=== PATIENT | male | born 1990 | race American Indian/Alaskan Native ===

== ENCOUNTER 2021-01-08 14:38 | Emergency (ER) | payer SELFPAY ==
[2021-01-08 15:00] VITALS: BP 126/76
--- NOTE | 2021-01-08 15:01 | Event Note ---
ED Screening Note Date of service: 01/08/21 Time: 15:00 ED Screening Note: 30-year-old immunocompetent male patient presents to the emergency department with complaints of palpitations, abdominal pain, nausea, and vomiting. He states the GI symptoms began approximately 3 days ago after taking a friend's Roxicodone and smoking marijuana in an attempt to relieve dental pain. Today, he began experiencing palpitations, prompting him to come to the emergency department for evaluation. General: Awake, appropriately interactive, no acute distress. Neck: Supple. Full range of motion intact. Cardiovascular: Regular rate and rhythm. Normal peripheral perfusion. Pulmonary: Clear to auscultation. No respiratory distress. Patient is speaking normally without use of accessory muscles. Skin: No apparent rashes or lesions. Neurological: No facial asymmetry. Speech is clear. Follows commands. Patient is alert and oriented. Musculoskeletal: Moves all four extremities spontaneously with normal range of motion. Psych: Cooperative. Appropriate mood and affect. This initial assessment/diagnostic orders/clinical plan/treatment(s) is/are subject to change based on patients health status, clinical progression and re- assessment by fellow clinical providers in the ED. Further treatment and workup at subsequent clinical providers discretion. Patient/guardian urged not to elope from the ED as their condition may be serious if not clinically assessed and managed.
--- NOTE | 2021-01-08 15:30 | XRay Report ---
CHEST 2 VIEWS INDICATION / CLINICAL INFORMATION: palpitations. COMPARISON: None available. FINDINGS: SUPPORT DEVICES: None. HEART / MEDIASTINUM: No significant abnormality. LUNGS / PLEURA: No significant pulmonary or pleural abnormality. No pneumothorax. ADDITIONAL FINDINGS: No significant additional findings. IMPRESSION: 1. No acute findings. Signer Name: Ruiz Clark MD Signed: 01/08/2021 3:25 PM Workstation Name: [id number]
[2021-01-08 15:46] LABS: Bilirubin,Urine NEG (Negative); Blood,Urine SM (Negative); Color,Urine Straw (Yellow); Protein,Urine <15 mg/dL mg/dL (Negative); Urobilinogen,Urine < 2.0 mg/dL (<2.0); WBC,Urine < 1.0 /HPF (0.0-6.0)
[2021-01-08 15:46] LABS: Alanine Aminotransferase 17 units/L (7-56); Albumin 4.8 g/dL (3.9-5); BUN/Creatinine Ratio 8; Basophils % (Auto) 0.3 % (0.0-1.8); Blood Urea Nitrogen 8 mg/dL (9-20); Calcium 9.7 mg/dL (8.4-10.2); Eosinophils # (Auto) 0.1 K/mm3 (0.0-0.4); Hematocrit 42.8 % (35.5-45.6); Hemoglobin 14.1 gm/dl (11.8-15.2); Hemolysis Index 10; Lymphocytes # (Auto) 1.3 K/mm3 (1.2-5.4); Lymphocytes % (Auto) 25.7 % (13.4-35.0); Mean Corpuscular HGB Conc 33 % (32-34); Mean Corpuscular Volume 85 fl (84-94); Monocytes # (Auto) 0.4 K/mm3 (0.0-0.8); Monocytes % (Auto) 7.1 % (0.0-7.3); Platelet Count 220 K/mm3 (140-440); Red Blood Count 5.04 M/mm3 (3.65-5.03); Red Cell Distribution Width 14.3 % (13.2-15.2)
[2021-01-08 15:54] LABS: Amphetamine Screen,Urine Negative; Benzodiazepines Screen,Urine Negative; Methadone Screen,Urine Negative; Opiate Screen,Urine Negative
[2021-01-08 16:07] LABS: Cannabinoid Screen,Urine Positive; Cocaine Screen,Urine Positive
== END 2021-01-08 17:50 | disposition left against medical advice (07) ==
LOC: ED 14:38
DX: R11.10 Vomiting, unspecified (principal); Z53.21 Procedure and treatment not carried out due to patient leaving prior to being seen by health care provider
CPT/HCPCS: 36415; 71046; 80053; 80307; 81001; 83735; 85025

== ENCOUNTER 2021-01-09 00:06 | Emergency (ER) | payer SELFPAY ==
[2021-01-09 00:32] VITALS: BP 122/90
[2021-01-09] MEDS ORDERED: ONDANSETRON 4 MG ODT TAB PO ONE (00:53)
[2021-01-09] MEDS ORDERED: HYOSCYAMINE SUBL 0.125 MG TAB SL ONE (00:53)
[2021-01-09] MEDS ORDERED: FAMOTIDINE 20 MG TAB PO ONE (00:53)
[2021-01-09] MEDS ORDERED: ALUM-MAG HYDROXIDE-SIMETHICONE 200-200-20MG/5ML ORAL LIQD 30 ML PO ONE (00:53)
--- NOTE | 2021-01-09 01:10 | Emergency Department Report ---
ED General Adult HPI - General Chief complaint: Abdominal Pain Stated complaint: UNABLE TO SLEEP Time Seen by Provider: 01/09/21 00:44 Source: patient, EMS Mode of arrival: Ambulatory Limitations: No Limitations - History of Present Illness Initial comments: Patient is a 30-year-old male presents emergency room complaints of nausea vomiting that began 2 days ago. Patient states that it began after taking Roxicodone that he got from someone else for dental pain. He states he has not seen a dentist in approximately over a year. Patient states that he has left upper quadrant abdominal discomfort. He is able to tolerate p.o. intake. He denies any fever, diarrhea, chest pain, shortness of breath, hematochezia, melena, hematemesis. No past medical history. No allergies medications. No past abdominal surgical history. Patient states he is having normal bowel movements. He denies alcohol use. He endorses tobacco and marijuana use. Patient denies other drug use. Patient was evaluated in the emergency department earlier today and had a full work-up at that time, labs are unremarkable, UDS was positive for marijuana and cocaine. - Related Data Previous Rx's Medication Instructions Recorded Last Taken Type Famotidine [Pepcid] 40 mg PO QHS #10 tablet 01/09/21 Unknown Rx Ondansetron [Zofran Odt] 4 mg PO Q8HR PRN #7 tab.rapdis 01/09/21 Unknown Rx Sucralfate [Carafate] 1 gm PO ACHS 7 Days #21 tablet 01/09/21 Unknown Rx Allergies Allergy/AdvReac Type Severity Reaction Status Date / Time No Known Allergies Allergy Unverified 01/08/21 14:59 ED Review of Systems ROS: Stated complaint: UNABLE TO SLEEP Other details as noted in HPI Comment: All other systems reviewed and negative ED Past Medical Hx - Past Medical History Previous Medical History?: No - Surgical History Past Surgical History?: No - Social History Smoking Status: Current Every Day Smoker - Medications Home Medications: Home Medications Medication Instructions Recorded Confirmed Last Taken Type Famotidine [Pepcid] 40 mg PO QHS #10 tablet 01/09/21 Unknown Rx Ondansetron [Zofran Odt] 4 mg PO Q8HR PRN #7 tab.rapdis 01/09/21 Unknown Rx Sucralfate [Carafate] 1 gm PO ACHS 7 Days #21 tablet 01/09/21 Unknown Rx ED Physical Exam - General Limitations: No Limitations General appearance: alert, in no apparent distress - Head Head exam: Present: atraumatic, normocephalic - Eye Eye exam: Present: normal appearance - ENT ENT exam: Present: mucous membranes moist, other (multiple dental caries, no edema or induration of the gumline, no facial edema, uvula is midline, no uvular edema or deviation, no trismus, no tongue elevation, no muffled voice, no submandibular edema) - Respiratory Respiratory exam: Present: normal lung sounds bilaterally. Absent: respiratory distress, wheezes, rales, rhonchi, stridor, chest wall tenderness, accessory muscle use, decreased breath sounds, prolonged expiratory - Cardiovascular Cardiovascular Exam: Present: regular rate, normal rhythm, normal heart sounds. Absent: systolic murmur, diastolic murmur, rubs, gallop - GI/Abdominal GI/Abdominal exam: Present: soft, normal bowel sounds. Absent: distended, tenderness, guarding, rebound, rigid - Neurological Exam Neurological exam: Present: alert, oriented X3 - Psychiatric Psychiatric exam: Present: normal affect, normal mood - Skin Skin exam: Present: warm, dry, intact ED Course Vital Signs 01/09/21 00:27 Temperature 99.2 F Pulse Rate 80 Respiratory 20 Rate Blood Pressure 122/90 O2 Sat by Pulse 98 Oximetry ED Medical Decision Making - Medical Decision Making Patient is a 30-year-old male presents emergency room complaints of nausea vomiting that began 2 days ago. Patient states that it began after taking Roxicodone that he got from someone else for dental pain. He states he has not seen a dentist in approximately over a year. Patient states that he has left upper quadrant abdominal discomfort. He is able to tolerate p.o. intake. He denies any fever, diarrhea, chest pain, shortness of breath, hematochezia, melena, hematemesis. No past medical history. No allergies medications. No past abdominal surgical history. Patient states he is having normal bowel movements. He denies alcohol use. He endorses tobacco and marijuana use. Patient denies other drug use. Patient was evaluated in the emergency department earlier today and had a full work-up at that time, labs are unremarkable, UDS was positive for marijuana and cocaine. Vitals are normal. No abdominal tenderness on exam, no guarding, no rebound, rigidity, nor bowel sounds, no peritoneal signs. Oral examination shows multiple dental caries but no signs of dental abscess, facial cellulitis, facial abscess. Symptoms most likely consistent with gastritis, polysubstance abuse appears to be contributing factor. Patient given p.o. medications while in the emergency department he was able to tolerate p.o. intake without difficulty, symptoms improved. Patient given prescription for Zofran, Carafate, Pepcid. Advised patient to please take medication as prescribed as needed. Increase your water intake. Eat a bland liquid diet and slowly began to diet as tolerated. Please avoid drug use. Follow-up with a primary care doctor. Follow-up with a dentist. Return to emergency room for new or worsening symptoms. Critical care attestation.: If time is entered above; I have spent that time in minutes in the direct care of this critically ill patient, excluding procedure time. ED Disposition Clinical Impression: Polysubstance abuse, Dental caries Abdominal pain Qualifiers: Abdominal location: left upper quadrant Qualified Code(s): R10.12 - Left upper quadrant pain Nausea & vomiting Qualifiers: Vomiting type: unspecified Vomiting Intractability: non-intractable Qualified Code(s): R11.2 - Nausea with vomiting, unspecified Disposition: TO HOME OR SELFCARE Is pt being admited?: No Does the pt Need Aspirin: No Condition: Stable Instructions: Gastritis, Adult Additional Instructions: please take medication as prescribed as needed. Increase your water intake. Eat a bland liquid diet and slowly began to diet as tolerated. Please avoid drug use. Follow-up with a primary care doctor. Follow-up with a dentist. Return to emergency room for new or worsening symptoms. Prescriptions: Famotidine [Pepcid] 40 mg PO QHS #10 tablet Sucralfate [Carafate] 1 gm PO ACHS 7 Days #21 tablet Ondansetron [Zofran Odt] 4 mg PO Q8HR PRN #7 tab.rapdis PRN Reason: nausea vomiting Referrals: JEANCARLOS PARMAR MD [Primary Care Provider] - 2-3 Days SURESH KAY MD [Staff Physician] - 2-3 Days [facility] [Provider Group] - 2-3 Days [facility] [Outside] - 2-3 Days [facility] [Outside] - 2-3 Days Time of Disposition: 01:14 Print Language: VIETNAMESE
== END 2021-01-09 01:45 | disposition home or self-care (01) ==
LOC: ED 00:06
DX: K02.9 Dental caries, unspecified (principal); R10.12 Left upper quadrant pain; R11.2 Nausea with vomiting, unspecified; F19.10 Other psychoactive substance abuse, uncomplicated; F17.200 Nicotine dependence, unspecified, uncomplicated; Z79.899 Other long term (current) drug therapy
CPT/HCPCS: Q0162

== ENCOUNTER 2021-07-12 03:42 | Emergency (ER) | payer SELFPAY ==
[2021-07-12 03:47] VITALS: BP 120/87
--- NOTE | 2021-07-12 04:30 | Emergency Department Report ---
ED General Adult HPI - General Chief complaint: Animal Bite Stated complaint: INSECT BITE Time Seen by Provider: 07/12/21 04:13 Source: patient Mode of arrival: Ambulatory Limitations: No Limitations - History of Present Illness Initial comments: Patient 31-year-old male who presents for insect bite to posterior calf 2 days ago states itching burning mild erythema and one blister. There is been no fevers no chills no decrease in ambulation. There is no active drainage. Patient has not tried [id number]-[id number]-[id number] remedies. Patient denies other symptoms. - Related Data Previous Rx's Medication Instructions Recorded Last Taken Type Famotidine [Pepcid] 40 mg PO QHS #10 tablet 01/09/21 Unknown Rx Ondansetron [Zofran Odt] 4 mg PO Q8HR PRN #7 tab.rapdis 01/09/21 Unknown Rx Sucralfate [Carafate] 1 gm PO ACHS 7 Days #21 tablet 01/09/21 Unknown Rx Mupirocin [Bactroban 2% OINT] 1 applic TP TID 7 Days #1 tube 07/12/21 Unknown Rx Allergies Allergy/AdvReac Type Severity Reaction Status Date / Time No Known Allergies Allergy Unverified 01/08/21 14:59 ED Review of Systems ROS: Stated complaint: INSECT BITE Other details as noted in HPI Constitutional: denies: chills, fever Eyes: denies: eye pain, eye discharge, vision change ENT: denies: ear pain, throat pain Respiratory: denies: cough, shortness of breath, wheezing Cardiovascular: denies: chest pain, palpitations Endocrine: no symptoms reported Gastrointestinal: as per HPI Genitourinary: denies: urgency, dysuria Musculoskeletal: denies: back pain, joint swelling, arthralgia Skin: as per HPI, lesions (left prosterior thigh ) Neurological: denies: headache, weakness, paresthesias, vertigo Psychiatric: denies: anxiety, depression Hematological/Lymphatic: denies: easy bleeding, easy bruising ED Past Medical Hx - Past Medical History Previous Medical History?: No - Surgical History Past Surgical History?: No - Social History Smoking Status: Current Every Day Smoker - Medications Home Medications: Home Medications Medication Instructions Recorded Confirmed Last Taken Type Famotidine [Pepcid] 40 mg PO QHS #10 tablet 01/09/21 Unknown Rx Ondansetron [Zofran Odt] 4 mg PO Q8HR PRN #7 tab.rapdis 01/09/21 Unknown Rx Sucralfate [Carafate] 1 gm PO ACHS 7 Days #21 tablet 01/09/21 Unknown Rx Mupirocin [Bactroban 2% OINT] 1 applic TP TID 7 Days #1 tube 07/12/21 Unknown Rx ED Physical Exam - General Limitations: No Limitations General appearance: alert, in no apparent distress - Head Head exam: Present: atraumatic, normocephalic - Eye Eye exam: Present: normal appearance, PERRL, EOMI Pupils: Present: normal accommodation - ENT ENT exam: Present: mucous membranes moist, TM's normal bilaterally - Neck Neck exam: Present: normal inspection, full ROM. Absent: tenderness - Respiratory Respiratory exam: Present: normal lung sounds bilaterally. Absent: respiratory distress, wheezes, stridor, chest wall tenderness - Cardiovascular Cardiovascular Exam: Present: regular rate, normal rhythm, normal heart sounds. Absent: systolic murmur, diastolic murmur, rubs, gallop - GI/Abdominal GI/Abdominal exam: Present: soft, normal bowel sounds. Absent: distended, tenderness - Rectal Rectal exam: Present: deferred - exam: Present: normal inspection - Extremities Exam Extremities exam: Present: normal inspection, full ROM, normal capillary refill. Absent: calf tenderness - Expanded Lower Extremity Exam Left Lower Leg exam: Present: full ROM, erythema. Absent: tenderness, swelling, abrasion, ecchymosis, deformity, palpable cord Ankle exam: Present: full ROM Foot/Toe exam: Present: normal inspection, full ROM. Absent: tenderness Neuro vascular tendon exam: Absent: pulse deficit, motor deficit, sensory deficit, tendon deficit Gait: Positive: observed and normal - Back Exam Back exam: Present: normal inspection, full ROM. Absent: CVA tenderness (R), CVA tenderness (L) - Neurological Exam Neurological exam: Present: alert, oriented X3, CN II-XII intact, normal gait - Psychiatric Psychiatric exam: Present: normal affect, normal mood - Skin Skin exam: Present: warm, dry, normal color, erythema (left posterior thigh ), vesicles. Absent: rash ED Course Vital Signs 07/12/21 03:45 Temperature 98.7 F Pulse Rate 79 Respiratory 18 Rate Blood Pressure 120/87 O2 Sat by Pulse 100 Oximetry ED Medical Decision Making - Medical Decision Making This is topical cellulitis plan mupirocin ointment, take [id number]-[id number]-[id number] Benadryl and Tylenol as needed for pain and itching. Follow-up with primary care doctor in 2 to 3 days. Patient verbalized agreement and understanding with discharge plan. Patient DC'd home in stable condition at this time. Critical care attestation.: If time is entered above; I have spent that time in minutes in the direct care of this critically ill patient, excluding procedure time. ED Disposition Clinical Impression: Cellulitis of left lower leg Disposition: HOME / SELF CARE / HOMELESS Is pt being admited?: No Does the pt Need Aspirin: No Condition: Stable Instructions: Cellulitis, Adult Additional Instructions: Take medications as prescribed, return to emergency department should symptoms worsen. Prescriptions: Mupirocin [Bactroban 2% OINT] 1 applic TP TID 7 Days #1 tube Referrals: [facility] [Provider Group] - 3-5 Days Forms: Work/School Release Form(ED) Time of Disposition: 04:33
== END 2021-07-12 05:00 | disposition home or self-care (01) ==
LOC: ED 03:42
DX: L03.116 Cellulitis of left lower limb (principal); F17.200 Nicotine dependence, unspecified, uncomplicated; Z79.899 Other long term (current) drug therapy
CPT/HCPCS: 99282

== ENCOUNTER 2022-04-28 17:18 | Inpatient (IN) | payer SELFPAY ==
[2022-04-28] MEDS ORDERED: IPRATROPIUM/ALBUTEROL SULFATE 3 ML AMPUL.NEB IH ONE ×2 (19:46→19:52)
[2022-04-28] MEDS ORDERED: methylPREDNISolone Sod Succinate 125 MG/2 ML INJ ONE (19:47)
[2022-04-28] MEDS ORDERED: methylPREDNISolone Sod Succinate 125 MG/2 ML INJ IV ONE (19:52)
[2022-04-28] MEDS ORDERED: MORPHINE 4 MG/1 ML INJ IV ONE (19:56)
[2022-04-28] MEDS ORDERED: ONDANSETRON 4 MG/2 ML INJ IV ONE (19:57)
--- NOTE | 2022-04-28 20:16 | XRay Report ---
CHEST 1 VIEW 04/28/2022 7:56 PM INDICATION / CLINICAL INFORMATION: Shortness of breath. COMPARISON: 01/08/21. FINDINGS: SUPPORT DEVICES: None. HEART / MEDIASTINUM: The heart size and pulmonary vasculature are normal. LUNGS / PLEURA: No significant pulmonary or pleural abnormality. No pneumothorax. ADDITIONAL FINDINGS: No significant additional findings. IMPRESSION: No acute abnormality or significant change. Signer Name: Jose G Soria MD Signed: 04/28/2022 8:12 PM Workstation Name: [id number]
[2022-04-28 20:38] LABS: ABG Base Excess -2.5 mmol/L (-2.0-3.0); ABG HCO3 23.3 mmol/L (20.0-26.0); ABG PCO2 43.9 mm Hg; ABG PH 7.343 pH Units (7.350-7.450); ABG PO2 110.7 mm Hg (80.0-90.0)
[2022-04-28 20:40] LABS: ABG Methemoglobin 0.6 % (0.0-1.5)
--- NOTE | 2022-04-28 20:45 | Emergency Department Report ---
HPI - General Chief Complaint: Dyspnea/Respdistress PUI?: No Time Seen by Provider: 04/28/22 19:51 - HPI HPI: 31-year old male who presents for evaluation of difficulty breathing or shortness of breath. Patient reports he has had a persistent dry cough over the past 2 days. He states his daughter has been sick. He reports he performed an at home COVID test which was negative. He states using [id number] medication without any improvement. He reports having substernal chest pain as well. He states he telephone ED Past Medical Hx - Past Medical History Previous Medical History?: No Hx Hypertension: No Hx Asthma: No Hx COPD: No - Surgical History Past Surgical History?: No - Family History Family history: no significant - Social History Smoking Status: Heavy Tobacco Smoker (Patient states he smokes 1 pack of cigarettes a day) - Medications Home Medications: Home Medications Medication Instructions Recorded Confirmed Last Taken Type Famotidine [Pepcid] 40 mg PO QHS #10 tablet 01/09/21 Unknown Rx Ondansetron [Zofran Odt] 4 mg PO Q8HR PRN #7 tab.rapdis 01/09/21 Unknown Rx Sucralfate [Carafate] 1 gm PO ACHS 7 Days #21 tablet 01/09/21 Unknown Rx Mupirocin [Bactroban 2% OINT] 1 applic TP TID 7 Days #1 tube 07/12/21 Unknown Rx ED Review of Systems ROS: Stated complaint: ULYSSES Other details as noted in HPI Comment: All other systems reviewed and negative Constitutional: no symptoms reported Eyes: denies: as per HPI, eye pain Respiratory: cough, shortness of breath. denies: SOB with exertion, SOB at rest, wheezing, other Cardiovascular: chest pain Endocrine: denies: see HPI, excessive sweating, flushing, intolerance to cold, intolerance to heat, increased hunger, increased thirst, increased urine, unexplained weight gain, unexplained weight loss Gastrointestinal: abdominal pain. denies: nausea, vomiting, diarrhea, constipation, hematemesis, melena, other Genitourinary: denies: urgency, dysuria, hematuria, discharge, testicular pain, testicular mass Skin: denies: rash, lesions, change in color, change in hair/nails, pruritus Neurological: denies: headache, numbness, paresthesias, confusion, abnormal gait, vertigo, other Psychiatric: denies: as per HPI, anxiety, depression, auditory hallucinations, visual hallucinations, homicidal thoughts Hematological/Lymphatic: denies: easy bleeding Physical Exam - Physical Exam Vital Signs: Vital Signs 04/28/22 04/28/22 04/28/22 17:34 19:59 20:10 Temperature 99.0 F 98.8 F Pulse Rate 114 H 109 H 104 H Pulse Rate [ Bilateral Throughout] Respiratory 16 24 Rate Respiratory Rate [Bilateral Throughout] Respiratory Rate [Posterior Bilateral Throughout] Blood Pressure Blood Pressure 140/100 132/102 [Left] O2 Sat by Pulse 99 98 Oximetry 04/28/22 04/28/22 04/28/22 20:11 20:22 20:32 Temperature Pulse Rate 112 H 108 H Pulse Rate [ Bilateral Throughout] Respiratory 24 20 37 H Rate Respiratory Rate [Bilateral Throughout] Respiratory Rate [Posterior Bilateral Throughout] Blood Pressure 128/98 Blood Pressure 142/85 [Left] O2 Sat by Pulse 100 100 100 Oximetry 04/28/22 20:35 Temperature Pulse Rate Pulse Rate [ 108 H Bilateral Throughout] Respiratory Rate Respiratory 32 H Rate [Bilateral Throughout] Respiratory 32 H Rate [Posterior Bilateral Throughout] Blood Pressure Blood Pressure [Left] O2 Sat by Pulse Oximetry General: Gen: adult male, diaphoretic, severely dyspneic, sitting in tripod position, severe respiratory distress, eyes intermittently rolling back in his head, HEENT: Normocephalic atraumatic pupils equally round and reactive to light extraocular muscles intact sclera anicteric Neck: Full range of motion, no midline spinal tenderness palpation, no JVD, no c arotid bruits, no nuchal rigidity; +accessory muscle usage CVS: S1-S2 regular rate and rhythm with no gallops rubs or murmurs, chest wall nontender Pulmonary:coarse breath sounds Abdomen: Soft nondistended nontender no guarding or rebound tenderness, no palpable deformities or step-offs, normal active bowel sounds, no hepatosplenomegaly, no pulsatile masses : Deferred Extremities: No cyanosis no clubbing no edema, intact distal peripheral pulses, Integumentary: Skin normal, no petechia no purpura no abscess no lacerations no evidence of trauma no evidence of infection Neuro: Patient is awake alert and oriented to person place time situation, mentating well, cranial nerves II through XII intact, no focal neurodeficits, sensation grossly tact Psych: Calm cooperative, mood affect normal ED Course Vital Signs 04/28/22 04/28/22 04/28/22 17:34 19:59 20:10 Temperature 99.0 F 98.8 F Pulse Rate 114 H 109 H 104 H Pulse Rate [ Bilateral Throughout] Respiratory 16 24 Rate Respiratory Rate [Bilateral Throughout] Respiratory Rate [Posterior Bilateral Throughout] Blood Pressure Blood Pressure 140/100 132/102 [Left] O2 Sat by Pulse 99 98 Oximetry 04/28/22 04/28/22 04/28/22 20:11 20:22 20:32 Temperature Pulse Rate 112 H 108 H Pulse Rate [ Bilateral Throughout] Respiratory 24 20 37 H Rate Respiratory Rate [Bilateral Throughout] Respiratory Rate [Posterior Bilateral Throughout] Blood Pressure 128/98 Blood Pressure 142/85 [Left] O2 Sat by Pulse 100 100 100 Oximetry 04/28/22 20:35 Temperature Pulse Rate Pulse Rate [ 108 H Bilateral Throughout] Respiratory Rate Respiratory 32 H Rate [Bilateral Throughout] Respiratory 32 H Rate [Posterior Bilateral Throughout] Blood Pressure Blood Pressure [Left] O2 Sat by Pulse Oximetry - Reevaluation(s) Reevaluation #1: 04/28/22 21:14 Patient currently on BiPAP. His breathing is still mildly labored but it is significantly improved. Patient no longer diaphoretic. He is able to speak in full sentences. We will continue to monitor and await resulting of patient's lab results. 04/28/22 22:00: pt remains dyspneic; he continues to remove bipap; RR currenty 41breaths/min. Pt remains in severe respiratory distress - Intubation Time Out Performed: Yes Sedative: Etomidate Mg Given: 20 Mg Given: 100 Laryngoscope: Kristy Size: 3 Assist Device Used: other (none) ET Tube Size: 7.5 Other Airway Intervention: none Tube Secured Depth (cm): 22 Tube Secured Location: lips Tube Placement Confirmation: visualized tube passing t, equal breath sounds bilat, no breath sounds over epi, confirmation by capnometr Patient Tolerated Procedure: well Intubation Complications: none ED Medical Decision Making - Lab Data Result diagrams: 04/28/22 20:37 04/28/22 20:37 - EKG Data -: EKG Interpreted by Me EKG shows normal: sinus rhythm Rate: normal - EKG Data When compared to previous EKG there are: no significant change, changes noted, previous EKG unavailable - Radiology Data Radiology results: report reviewed - Medical Decision Making 31-year-old male presents with severe respiratory distress. Labs reviewed. Patient persistently dyspneic and tachypneic although oxygen saturations have remained normal despite him having been given Solu-Medrol and albuterol Atrovent nebulizer treatments serum labs reviewed. Chest x-ray unremarkable. Due to persistent progressively worsening respiratory distress and my concerns that the patient would succumb to respiratory arrest, the patient was emergently intubated via endotracheal intubation. Urine drug screen positive for amphetamines and marijuana. Urine drug screen was also positive for morphine but the patient had received this in the emergency department today for m anagement of his chest pain. The patient was placed on a propofol drip for sedation. Case reviewed with admitting hospitalist, . He accepted the patient for admission to the hospital service for further management. Critical Care Time: Yes Critical care time in (mins) excluding proc time.: 30 Critical care attestation.: If time is entered above; I have spent that time in minutes in the direct care of this critically ill patient, excluding procedure time. ED Disposition Clinical Impression: Cough, Amphetamine abuse, Respiratory distress, acute Disposition: 09 ADMITTED INPATIENT Is pt being admited?: Yes Does the pt Need Aspirin: No Condition: Stable
[2022-04-28 21:20] LABS: Basophils % (Auto) 0.3 % (0.0-1.8); Eosinophils # (Auto) 0.1 K/mm3 (0.0-0.4); Eosinophils % (Auto) 0.7 % (0.0-4.3); Hematocrit 43.7 % (35.5-45.6); Hemoglobin 14.1 gm/dl (11.8-15.2); Lymphocytes # (Auto) 1.6 K/mm3 (1.2-5.4); Lymphocytes % (Auto) 20.6 % (13.4-35.0); Mean Corpuscular HGB Conc 32 % (32-34); Mean Corpuscular Volume 84 fl (84-94); Monocytes # (Auto) 0.4 K/mm3 (0.0-0.8); Monocytes % (Auto) 4.7 % (0.0-7.3); Platelet Count 230 K/mm3 (140-440); Red Blood Count 5.18 M/mm3 (3.65-5.03); Red Cell Distribution Width 14.2 % (13.2-15.2)
[2022-04-28] MEDS ORDERED: SODIUM CHLORIDE 0.9% 1000 ML 1,000 ML IV ONE (21:33)
[2022-04-28] MEDS ORDERED: LORazepam 2 MG/ML VIAL IV ONE (21:40)
[2022-04-28 22:21] LABS: Alanine Aminotransferase 20 units/L (7-56); Albumin 4.5 g/dL (3.9-5); BUN/Creatinine Ratio 6; Blood Urea Nitrogen 5 mg/dL (9-20); Calcium 9.3 mg/dL (8.4-10.2); Hemolysis Index 88
[2022-04-28] MEDS ORDERED: ROCURONIUM 50 MG/5 ML INJ IV ONE (22:33)
[2022-04-28] MEDS ORDERED: ETOMIDATE 20 MG/10 ML INJ IV ONE (22:33)
[2022-04-28 22:54] LABS: Amphetamine Screen,Urine PRESUMPTIVE POSITIVE; Benzodiazepines Screen,Urine PRESUMPTIVE NEGATIVE; Cannabinoid Screen,Urine PRESUMPTIVE POSITIVE; Cocaine Screen,Urine PRESUMPTIVE NEGATIVE; Methadone Screen,Urine PRESUMPTIVE NEGATIVE; Opiate Screen,Urine PRESUMPTIVE POSITIVE
[2022-04-28] MEDS ORDERED: propofoL 200 MG/20 ML VIAL IV ONE (23:00)
--- NOTE | 2022-04-28 23:30 | XRay Report ---
CHEST 1 VIEW INDICATION / CLINICAL INFORMATION: ett placement. COMPARISON: Chest x-ray 04/28/2022 FINDINGS: SUPPORT DEVICES: Endotracheal tube lies in satisfactory position. HEART / MEDIASTINUM: Heart size is within normal limits. Mediastinal contour demonstrates no signific ant abnormality. LUNGS / PLEURA: No significant pulmonary abnormality. BONES: No significant osseous abnormality. ADDITIONAL FINDINGS: No significant additional findings. IMPRESSION: 1. No active cardiopulmonary disease. Signer Name: Moy Santos II, MD Signed: 04/28/2022 11:25 PM Workstation Name: [id number]
--- NOTE | 2022-04-28 23:52 | XRay Report ---
CHEST 1 VIEW INDICATION / CLINICAL INFORMATION: og tube placement. COMPARISON: Chest x-ray 04/28/2022; 2259 hours FINDINGS: SUPPORT DEVICES: Interval additional esophagogastric tube tip beneath left hemidiaphragm within the p roximal findings. Endotracheal tube stable. HEART / MEDIASTINUM: Heart size is within normal limits. Mediastinal contour demonstrates no signific ant abnormality. LUNGS / PLEURA: No significant pulmonary abnormality. BONES: No significant osseous abnormality. ADDITIONAL FINDINGS: No significant additional findings. IMPRESSION: 1. No active cardiopulmonary disease. 2. Interval placement of esophagogastric tube tip beneath the left hemidiaphragm. Signer Name: Moy Santos II, MD Signed: 04/28/2022 11:47 PM Workstation Name: [id number]
--- NOTE | 2022-04-29 00:24 | Cat Scan Report ---
CTA CHEST WITH CONTRAST INDICATION / CLINICAL INFORMATION: severe sob, chest pain. TECHNIQUE: Axial CT images were obtained through the chest after injection of 100 cc Omnipaque 350 Sh eehy IV contrast. 3 plane MIP and/or 3D reconstructions were produced. All CT scans at this location are performed using CT dose reduction for ALARA by means of automated exposure control. COMPARISON: None available. FINDINGS: VASCULAR FINDINGS: PULMONARY ARTERY: Pulmonary artery is normal in size. No filling defects are present compatible with pulmonary artery embolus.. THORACIC AORTA: No significant abnormality. CORONARY ARTERY CALCIFICATION: Absent -- None. NONVASCULAR FINDINGS: LOWER NECK: Soft tissues and musculature of the lower neck demonstrate no significant abnormality. Th e thyroid demonstrates no significant abnormality. HEART: No significant abnormality. MEDIASTINUM / JOANIE: No significant abnormality. ESOPHAGUS: Esophagogastric tube present. The esophagus demonstrates no significant abnormality. LYMPH NODES: Enlarged bilateral axillary lymph nodes. Left axillary lymph nodes measure up to 12 mm s hort axis. Right measure up to 9-10 mm short axis LUNGS: No acute air space or interstitial disease. PLEURA: No pleural effusion. No pneumothorax. THORACIC SOFT TISSUES: No significant abnormality of the chest wall or upper thoracic musculature. BONES: No significant skeletal abnormalities. ADDITIONAL CHEST FINDINGS: None. UPPER ABDOMEN: Mild hepatic steatosis not excluded. IMPRESSION: 1. No CT evidence for pulmonary embolism. 2. Borderline to minimally enlarged bilateral axillary lymph nodes of uncertain if any clinical signi ficance. 3. No acute findings within the chest. Signer Name: Moy Santos II, MD Signed: 04/29/2022 12:19 AM Workstation Name: [email or web address] [id number]
[2022-04-29] MEDS ORDERED: MORPHINE 2 MG/1 ML INJ IV PRN (00:26)
[2022-04-29] MEDS ORDERED: MORPHINE 4 MG/1 ML INJ IV PRN (00:26)
[2022-04-29] MEDS ORDERED: ACETAMINOPHEN 650 MG RECT SUPP PR PRN (00:26)
[2022-04-29] MEDS ORDERED: ONDANSETRON 4 MG/2 ML INJ IV PRN (00:26)
[2022-04-29] MEDS ORDERED: SODIUM CHLORIDE 0.9% 1000 ML 1,000 ML IV SCH (00:30)
--- NOTE | 2022-04-29 00:35 | History and Physical Report ---
History of Present Illness Date of examination: 04/29/22 Date of admission: 04/29/2022 Chief complaint: Shortness of breath Cough History of present illness: 31-year-old -[place] male with no significant past medical history seen in the emergency room today with complaints of shortness of breath and cough which has been ongoing for the past 2 days. Most of the history was gotten from the ER staff as patient is already intubated and sedated. No family member was available. According to patient, he denied any fever or chills, he has had some chest disc omfort with his cough. He also indicated that indeed a COVID test at home which was negative. While in the emergency room, patient was found to be in acute respiratory distress. He was found to be wheezing, tachypneic and tachycardic. He was subsequently intubated in the emergency room. Work-up in the emergency room today, labs were unremarkable. Chest x-ray was unremarkable. CT angiogram of the chest was negative for pulmonary embolism. No acute findings within the chest. UDS was positive for marijuana and amphetamine. He was subsequently intubated in the emergency room secondary to his acute respiratory distress. Past History Past Medical History: No medical history Past Surgical History: No surgical history Social history: smoking (Current daily smoker) Family history: no significant family history Medications and Allergies Allergies Allergy/AdvReac Type Severity Reaction Status Date / Time No Known Allergies Allergy Verified 04/28/22 17:41 Home Medications Medication Instructions Recorded Confirmed Last Taken Type Famotidine [Pepcid] 40 mg PO QHS #10 tablet 01/09/21 Unknown Rx Ondansetron [Zofran Odt] 4 mg PO Q8HR PRN #7 tab.rapdis 01/09/21 Unknown Rx Sucralfate [Carafate] 1 gm PO ACHS 7 Days #21 tablet 01/09/21 Unknown Rx Mupirocin [Bactroban 2% OINT] 1 applic TP TID 7 Days #1 tube 07/12/21 Unknown Rx Active Meds: Active Medications Acetaminophen (Acetaminophen 650 Mg Rect Supp) 650 mg CO Q6H PRN PRN Reason: Pain MILD(1-3)/Fever >100.5/RSUHING Albuterol/Ipratropium (Ipratropium/Albuterol Sulfate 3 Ml Ampul.Neb) 1 ampul IH Q6HRT ARTURO Propofol (Diprivan 10 Mg/Ml) 1,000 mg in 100 mls @ 2.381 mls/hr IV TITR ARTURO; Protocol Last Admin: 04/28/22 23:10 Dose: 10 mcg/kg/min, 4.763 mls/hr Sodium Chloride (Nacl 0.9% 1000 Ml) 1,000 mls @ 75 mls/hr IV DIRECT ARTURO Morphine Sulfate (Morphine 2 Mg/1 Ml Inj) 2 mg IV Q4H PRN PRN Reason: Pain, Moderate (4-6) Sodium Chloride (Sodium Chloride 0.9% 10 Ml Flush Syringe) 10 ml IV BID ARTURO Sodium Chloride (Sodium Chloride 0.9% 10 Ml Flush Syringe) 10 ml IV PRN PRN PRN Reason: LINE FLUSH Review of Systems ROS unobtainable: due to endotracheal tube Exam - Constitutional Vitals: Temp Pulse Resp BP Pulse Ox 98.8 F 120 H 20 140/101 100 04/28/22 19:59 04/29/22 00:26 04/29/22 00:26 04/29/22 00:26 04/29/22 00:26 General appearance: Present: well-nourished, other (Intubated and sedated) - EENT Eyes: Present: PERRL, EOM intact. Absent: scleral icterus ENT: hearing intact, clear oral mucosa, dentition normal - Neck Neck: Present: supple, normal ROM - Respiratory Respiratory effort: other (Intubated and sedated) Respiratory: bilateral: wheezing (Few scattered wheezes bilaterally) - Cardiovascular Rhythm: regular Heart Sounds: Present: S1 & S2. Absent: gallop, systolic murmur, diastolic murmur, rub, click - Extremities Extremities: no ischemia, pulses intact, pulses symmetrical, No edema, normal temperature, normal color, Full ROM Peripheral Pulses: within normal limits - Abdominal General gastrointestinal: Present: soft, non-tender, non-distended, normal bowel sounds. Absent: mass - Integumentary Integumentary: Present: clear, warm, dry, rash, normal turgor - Musculoskeletal Musculoskeletal: strength equal bilaterally - Psychiatric Psychiatric: appropriate mood/affect, intact judgment & insight, memory intact, cooperative - Neurologic Neurologic: CNII-XII intact, no focal deficits, moves all extremities HEART Score - HEART Score Troponin: Troponin T < 0.010 ng/mL (0.00-0.029) 04/28/22 20:37 Results - Labs CBC & Chem 7: 04/28/22 20:37 04/28/22 20:37 Labs: Abnormal lab results 04/28/22 04/28/22 04/28/22 Range/Units 20: 20:37 20:37 RBC 5.18 H (3.65-5.03) M/mm3 MCH 27 L (28-32) pg Seg Neutrophils % 73.7 H (40.0-70.0) % ABG pH 7.343 L (7.350-7.450) pH Units ABG pO2 110.7 H (80.0-90.0) mm Hg ABG Base Excess -2.5 L (-2.0-3.0) mmol/L ABG Hemoglobin 13.4 L (14.0-18.0) gm/dl BUN 5 L (9-20) mg/dL Glucose 109 H (75-100) mg/dL Total Protein 8.8 H (6.3-8.2) g/dL Assessment and Plan Assessment: 1. Acute respiratory distress-etiology unclear. Possibly secondary to bronchospasm. 2. Amphetamine abuse 3. Tobacco abuse Plan: 1. Patient intubated and admitted into the intensive care unit. 2. Commenced on nebulizing treatments and IV steroid. 3. Consult excavation laborer for evaluation and further recommendation. DVT prophylaxis: Subcutaneous heparin CODE STATUS: Full code
[2022-04-29 00:40] LABS: ABG HCO3 25.2 mmol/L (20.0-26.0); ABG PCO2 63.9 mm Hg; ABG PH 7.213 pH Units (7.350-7.450); ABG PO2 75.5 mm Hg (80.0-90.0)
[2022-04-29 00:48] LABS: ABG Methemoglobin 0.6 % (0.0-1.5); ABG Oxygen Saturation 94.1 % (95.0-99.0)
[2022-04-29] MEDS ORDERED: fentaNYL 100 MCG/2 ML INJ IV PRN (00:53)
[2022-04-29] MEDS: fentaNYL DRIP Premix 2,000 MCG/100 ML BAG IV SCH ×3 (01:02→22:31)
[2022-04-29] MEDS ORDERED: ROCURONIUM 50 MG/5 ML INJ IV ONE ×2 (04:03→11:00)
[2022-04-29] MEDS ORDERED: MIDAZOLAM 2 MG/2 ML INJ ONE (04:15)
[2022-04-29] MEDS: IPRATROPIUM/ALBUTEROL SULFATE 3 ML AMPUL.NEB IH SCH ×4 (04:42→20:52)
--- NOTE | 2022-04-29 04:43 | Event Note ---
Date: 04/29/22 I was called into this patient room for re--intubation. Pt was initially admitted to the ICU for respiratory failure and intubated. While still waiting in the ED for his bed it was noticed that patient have beaten his ET tube and needed to be changed. Please see intubation procedure note below Procedure: ET intubation Time out:Yes with name of patient confirmed Sedation:Etomidate Paralytic:Rocuronium Tube size: 7.5 Assisted Device:Anjel size 4 curved Tube location depth:22 cm Tube placement confirmation:visualized tube passing through cords,no breath sounds over epigastrum, confirmed by capnometry with equal breath bilaterally Patient Tolerated Procedure:Well Intubation Complication:None Additional Comments:
[2022-04-29 09:01] LABS: ABG Base Excess -1.2 mmol/L (-2.0-3.0); ABG HCO3 28.1 mmol/L (20.0-26.0); ABG Methemoglobin 0.7 % (0.0-1.5); ABG Oxygen Saturation 99.6 % (95.0-99.0); ABG PCO2 68.9 mm Hg; ABG PH 7.229 pH Units (7.350-7.450)
[2022-04-29 09:06] LABS: ABG PO2 435.3 mm Hg (80.0-90.0)
[2022-04-29] MEDS: FAMOTIDINE 20 MG TAB FEEDTUBE SCH ×2 (10:16→22:33)
[2022-04-29 10:32] LABS: C-Reactive Protein 1.5 mg/dL (0.00-1.30)
[2022-04-29] MEDS: HEPARIN 5,000 UNIT/1 ML VIAL SUB-Q SCH ×3 (10:36→22:32)
[2022-04-29] MEDS: methylPREDNISolone Sod Succinate 40 MG/1 ML INJ IV SCH ×3 (10:36→22:32)
--- NOTE | 2022-04-29 10:40 | Progress Note ---
<JARAD FLOYD - Last Filed: 04/29/22 17:46> Assessment and Plan Assessment and plan: This is a 31-year-old AA male with no known past medical history admitted for acute hypoxemic respiratory failure requiring ventilatory support Hospital Course to Date: 04/29: Intubated/sedated. s/p reintubation, patient bit through ETT. Max on propofol and fentanyl, now with hypotension and tachycardia. Rapid COVID negative. Patient is afebrile with no leukocytosis. Wean sedatio for RASS goal 0 to -1, IVF bolus administered. Probably related to sedation but given unclear etiology for acute respiratory failure and now with hypotension, will also r/o infectious process. Orders placed for COVID and FLU PCR, UA, blood culture, and procal. Hold off on IV Abx for now, pending results. 2D echo pending. [facility] is also following Assessment and Plan #Acute Hypoxemic Respiratory Failure - etiology unclear - Presented in respiratory distress, SOB, and cough ongoing X2 days - respiratory status worsen in the ED s/p intubation on 04/29 - Rapid Covid negative, CXR and CAT chest with no acute findings - Probable bronchospasm, wheezing appreciated throughout lungs - Vent setting: PRVC- 100%,6,24,450 - AM ABG noted, vent wean per CCM - CCM consulted, appreciate recommendations - Continue IV Steroids and Nebs - COVID and FLU PCR pending - VAP bundle addressed - Aspiration precaution HOB above 30 - Daily SBT and SAT trials as tolerated - Daily ABG and CXR - Continue SPO2 monitoring for SPO2 goal above 92% #Hypotension - Now with hypotension and tachycardia. Afebrile with no leukocytosis - probably secondary to sedation, however will r/o infectious process - IVF bolus administered - Orders placed for COVID and FLU PCR, UA, blood culture, and procal. - Hold off on IV Abx for now, pending results - Levophed gtt on standby - Continue blood pressure monitor per protocol - Maintain MAP above 65 - Continue rehydration with cont. IVF - 2D Echo pending - CCM consulted, appreciate recommendations #Polysubstance Abuse - UDS + opiate, amphetamine, and THC - Currently intubated and sedated - Titrate sedation for RASS goal of 0 to -1 - Daily SAT and SBT per CCM - Avoid benzodiazepine to reduce the possibility of delirium - PRN Analgesia CPOT greater than 2 - Maintenance of sleep-wake cycle #Tobacco Dependence - Smoking cessation education once extubated and off sedation - Nicotine patch if needed once extubated and off sedation #GI/DVT Prophylaxis - PPI- Pepcid - Heparin SubQ - SCDs to bilateral lower extremities while in bed #Advance Care Planning - Disease education data, care plan, diagnoses, and prognosis were discussed w ith patient's mother at the bedside. Patient is a FULL code. Patient's family acknowledged understanding and agreed with current care plan. The high probability of a clinically significant, sudden or life threatening deterioration of the [multiple] system(s) required my full and direct attention, intervention and personal management. The aggregate critical care time was [60] minutes. This time is in addition to time spent performing reported procedures but includes the following: [x] Data Review and interpretation [x] Patient assessment and monitoring of vital signs [x] Documentation [x] Medication orders and management Disposition Plan: ICU Total Time Spent with Patient (Minutes): 60 History Interval history: Patient seen and examined at the bedside. S/p re-intubated this am, per RN patient bit through ETT. Currently Intubated and sedate, RASS -5. Hypotensive and Tachycardiac this am, IVF bolus initiated Hospitalist Physical - Constitutional Vitals: Temp Pulse Resp BP Pulse Ox 98.8 F 105 H 13 99/56 100 04/28/22 19:59 04/29/22 08:00 04/29/22 08:00 04/29/22 08:00 04/29/22 08:15 General appearance: Present: no acute distress, other (Intubated and sedated) - EENT Eyes: Present: miosis - Respiratory Respiratory effort: normal Respiratory: bilateral: wheezing - Cardiovascular Rhythm: regular Heart Sounds: Present: S1 & S2 - Extremities Extremities: no ischemia, pulses intact, pulses symmetrical Peripheral Pulses: within normal limits - Abdominal General gastrointestinal: soft, non-distended, normal bowel sounds - Integumentary Integumentary: Present: warm, dry - Psychiatric Psychiatric: other (Intubated and Sedated, RASS -5) - Neurologic Neurologic: other (Intubated and Sedated, RASS -5) - Allied Health Allied health notes reviewed: nursing, case management HEART Score - HEART Score Troponin: Troponin T < 0.010 ng/mL (0.00-0.029) 04/28/22 20:37 Results - Labs CBC & Chem 7: 04/28/22 20:37 04/28/22 20:37 Labs: Laboratory Last Values WBC 7.6 K/mm3 (4.5-11.0) 04/28/22 20:37 RBC 5.18 M/mm3 (3.65-5.03) H 04/28/22 20:37 Hgb 14.1 gm/dl (11.8-15.2) 04/28/22 20:37 Hct 43.7 % (35.5-45.6) 04/28/22 20:37 MCV 84 fl (84-94) 04/28/22 20:37 MCH 27 pg (28-32) L 04/28/22 20:37 MCHC 32 % (32-34) 04/28/22 20:37 RDW 14.2 % (13.2-15.2) 04/28/22 20:37 Plt Count 230 K/mm3 (140-440) 04/28/22 20:37 Lymph % (Auto) 20.6 % (13.4-35.0) 04/28/22 20:37 Blair % (Auto) 4.7 % (0.0-7.3) 04/28/22 20:37 Eos % (Auto) 0.7 % (0.0-4.3) 04/28/22 20:37 Baso % (Auto) 0.3 % (0.0-1.8) 04/28/22 20:37 Lymph # (Auto) 1.6 K/mm3 (1.2-5.4) 04/28/22 20:37 Blair # (Auto) 0.4 K/mm3 (0.0-0.8) 04/28/22 20:37 Eos # (Auto) 0.1 K/mm3 (0.0-0.4) 04/28/22 20:37 Baso # (Auto) 0.0 K/mm3 (0.0-0.1) 04/28/22 20:37 Seg Neutrophils % 73.7 % (40.0-70.0) H 04/28/22 20:37 Seg Neutrophils # 5.6 K/mm3 (1.8-7.7) 04/28/22 20:37 D-Dimer 172.65 ng/mlDDU (0-234) 04/28/22 20:37 ABG pH 7.229 pH Units (7.350-7.450) L 04/29/22 08:30 ABG pCO2 68.9 mm Hg 04/29/22 08:30 ABG pO2 435.3 mm Hg (80.0-90.0) H 04/29/22 08:30 ABG HCO3 28.1 mmol/L (20.0-26.0) H 04/29/22 08:30 ABG O2 Saturation 99.6 % (95.0-99.0) H 04/29/22 08:30 ABG O2 Content 21.0 (0.0-44) 04/29/22 08:30 ABG Base Excess -1.2 mmol/L (-2.0-3.0) 04/29/22 08:30 ABG Hemoglobin 14.5 gm/dl (14.0-18.0) 04/29/22 08:30 ABG Carboxyhemoglobin 0.9 % (0.0-5.0) 04/29/22 08:30 ABG Methemoglobin 0.7 % (0.0-1.5) 04/29/22 08:30 Oxyhemoglobin 98.0 % (95.0-99.0) 04/29/22 08:30 FiO2 100 % 04/29/22 08:30 Sodium 140 mmol/L (137-145) 04/28/22 20:37 Potassium 4.2 mmol/L (3.6-5.0) 04/28/22 20:37 Chloride 104.2 mmol/L (98-107) 04/28/22 20:37 Carbon Dioxide 22 mmol/L (22-30) 04/28/22 20:37 Anion Gap 18 mmol/L 04/28/22 20:37 BUN 5 mg/dL (9-20) L 04/28/22 20:37 Creatinine 0.8 mg/dL (0.8-1.3) 04/28/22 20:37 Estimated GFR > 60 ml/min 04/28/22 20:37 BUN/Creatinine Ratio 6 % 04/28/22 20:37 Glucose 109 mg/dL (75-100) H 04/28/22 20:37 Calcium 9.3 mg/dL (8.4-10.2) 04/28/22 20:37 Ferritin 189.3 ng/mL (30.0-300.0) 04/29/22 09:33 Total Bilirubin 0.60 mg/dL (0.1-1.2) 04/28/22 20:37 AST 25 units/L (5-40) 04/28/22 20:37 ALT 20 units/L (7-56) 04/28/22 20:37 Alkaline Phosphatase 73 units/L (35-129) 04/28/22 20:37 Lactate Dehydrogenase 316 units/L (91-180) H 04/29/22 09:33 Troponin T < 0.010 ng/mL (0.00-0.029) 04/28/22 20:37 C-Reactive Protein 1.50 mg/dL (0.00-1.30) H 04/29/22 09:33 NT-Pro-B Natriuret Pep 30.06 pg/mL (0-450) 04/28/22 20:37 Total Protein 8.8 g/dL (6.3-8.2) H 04/28/22 20:37 Albumin 4.5 g/dL (3.9-5) 04/28/22 20:37 Albumin/Globulin Ratio 1.0 % 04/28/22 20:37 Urine Opiates Screen Presumptive positive 04/28/22 22:25 Urine Methadone Screen Presumptive negative 04/28/22 22:25 Ur Barbiturates Screen Presumptive negative 04/28/22 22:25 Ur Phencyclidine Scrn Presumptive negative 04/28/22 22:25 Ur Amphetamines Screen Presumptive positive 04/28/22 22:25 U Benzodiazepines Scrn Presumptive negative 04/28/22 22:25 Urine Cocaine Screen Presumptive negative 04/28/22 22:25 U Marijuana (THC) Screen Presumptive positive 04/28/22 22:25 Drugs of Abuse Note Disclamer 04/28/22 22:25 SARS-CoV-2 (PCR) Negative (Negative) 04/29/22 08:35 Active Medications - Current Medications Current Medications: Generic Name Dose Route Start Last Admin Trade Name Freq PRN Reason Stop Dose Admin Acetaminophen 650 mg 04/29/22 00:26 Acetaminophen 650 Mg Rect Supp SC Q6H PRN Pain MILD(1-3)/Fever >100.5/RUSHING Albuterol/Ipratropium 1 ampul 04/29/22 02:00 04/29/22 08:22 Ipratropium/Albuterol Sulfate 3 Ml Ampul.Neb IH 1 ampul Q6HRT ARTURO Administration Famotidine 20 mg 04/29/22 10:00 04/29/22 10:16 Famotidine 20 Mg Tab FEEDTUBE 20 mg BID ARTURO Administration Fentanyl 50 mcg 04/29/22 00:53 04/29/22 03:45 Fentanyl 100 Mcg/2 Ml Inj IV 50 mcg Q10MIN PRN Administration ANALGESIA Heparin Sodium (Porcine) 5,000 unit 04/29/22 06:00 04/29/22 10:36 Heparin 5,000 Unit/1 Ml Vial SUB-Q Not Given Q8HR ARTURO Propofol 1,000 mg in 100 mls @ 2.381 mls/hr 04/28/22 23:00 04/29/22 10:18 Diprivan 10 Mg/Ml IV 45 mcg/kg/min TITR ARTURO 21.432 mls/hr Titration Protocol 5 MCG/KG/MIN Sodium Chloride 1,000 mls @ 75 mls/hr 04/29/22 00:30 04/29/22 10:10 Nacl 0.9% 1000 Ml IV 75 mls/hr DIRECT ARTURO Administration Fentanyl Citrate 2,000 mcg in 100 mls @ 3.969 mls/hr 04/29/22 01:00 04/29/22 10:22 Fentanyl Drip Premix IV 2 mcg/kg/hr TITR ARTURO 7.938 mls/hr Administration Protocol 1 MCG/KG/HR Sodium Chloride 500 mls @ 999 mls/hr 04/29/22 11:00 04/29/22 10:09 Nacl 0.9% 500 Ml IV 04/29/22 11:30 999 mls/hr ONCE ONE Administration Sodium Chloride 500 mls @ 999 mls/hr 04/29/22 11:00 04/29/22 10:35 Nacl 0.9% 500 Ml IV 04/29/22 14:00 999 mls/hr ONCE@1100 ARTURO Administration NORepinephrine/NS 8 MG-250 ML 8 mg in 250 mls @ 3.75 mls/hr 04/29/22 11:00 Norepinephrine/Ns 8 Mg-250 Ml (Double Conc) IV TITRATE ARTURO Protocol 2 MCG/MIN Methylprednisolone Sodium Succinate 40 mg 04/29/22 06:00 04/29/22 10:36 Methylprednisolone Sod Succinate 40 Mg/1 Ml Inj IV Not Given Q8HR ARTURO Ondansetron HCl 4 mg 04/29/22 00:26 Ondansetron 4 Mg/2 Ml Inj IV Q8H PRN Nausea And Vomiting Sodium Chloride 10 ml 04/29/22 10:00 04/29/22 10:15 Sodium Chloride 0.9% 10 Ml Flush Syringe IV 10 ml BID ARTURO Administration Sodium Chloride 10 ml 04/29/22 00:26 Sodium Chloride 0.9% 10 Ml Flush Syringe IV PRN PRN LINE FLUSH <JONAS MATHEWS - Last Filed: 04/30/22 07:06> Assessment and Plan Assessment and plan: I saw and evaluated the patient. I agree with the findings and the plan of care as documented in the Nurse Practitioner's~note, with the following corrections and additions. Hospitalist Physical - Constitutional Vitals: Temp Pulse Resp BP Pulse Ox 98 F 84 8 L 97/53 98 04/30/22 04:00 04/30/22 06:45 04/30/22 06:45 04/30/22 06:45 04/30/22 06:45 HEART Score - HEART Score Troponin: Troponin T < 0.010 ng/mL (0.00-0.029) 04/28/22 20:37 Results - Labs CBC & Chem 7: 04/30/22 04:44 04/30/22 04:44 Labs: Laboratory Last Values WBC 6.5 K/mm3 (4.5-11.0) 04/30/22 04:44 RBC 4.09 M/mm3 (3.65-5.03) 04/30/22 04:44 Hgb 11.2 gm/dl (11.8-15.2) L 04/30/22 04:44 Hct 34.5 % (35.5-45.6) L D 04/30/22 04:44 MCV 84 fl (84-94) 04/30/22 04:44 MCH 27 pg (28-32) L 04/30/22 04:44 MCHC 32 % (32-34) 04/30/22 04:44 RDW 14.6 % (13.2-15.2) 04/30/22 04:44 Plt Count 185 K/mm3 (140-440) 04/30/22 04:44 Lymph % (Auto) 16.5 % (13.4-35.0) 04/30/22 04:44 Blair % (Auto) 9.1 % (0.0-7.3) H 04/30/22 04:44 Eos % (Auto) 0.0 % (0.0-4.3) 04/30/22 04:44 Baso % (Auto) 0.1 % (0.0-1.8) 04/30/22 04:44 Lymph # (Auto) 1.1 K/mm3 (1.2-5.4) L 04/30/22 04:44 Blair # (Auto) 0.6 K/mm3 (0.0-0.8) 04/30/22 04:44 Eos # (Auto) 0.0 K/mm3 (0.0-0.4) 04/30/22 04:44 Baso # (Auto) 0.0 K/mm3 (0.0-0.1) 04/30/22 04:44 Seg Neutrophils % 74.3 % (40.0-70.0) H 04/30/22 04:44 Seg Neutrophils # 4.8 K/mm3 (1.8-7.7) 04/30/22 04:44 D-Dimer 172.65 ng/mlDDU (0-234) 04/28/22 20:37 ABG pH 7.341 pH Units (7.350-7.450) L 04/29/22 21:09 ABG pCO2 51.4 mm Hg 04/29/22 21:09 ABG pO2 104.8 mm Hg (80.0-90.0) H 04/29/22 21:09 ABG HCO3 27.1 mmol/L (20.0-26.0) H 04/29/22 21:09 ABG O2 Saturation 97.5 % (95.0-99.0) 04/29/22 21:09 ABG O2 Content 17.4 (0.0-44) 04/29/22 21:09 ABG Base Excess 0.7 mmol/L (-2.0-3.0) 04/29/22 21:09 ABG Hemoglobin 12.8 gm/dl (14.0-18.0) L 04/29/22 21:09 ABG Carboxyhemoglobin 0.9 % (0.0-5.0) 04/29/22 21:09 ABG Methemoglobin 0.6 % (0.0-1.5) 04/29/22 21:09 Oxyhemoglobin 96.0 % (95.0-99.0) 04/29/22 21:09 FiO2 40 % 04/29/22 21:09 Sodium 137 mmol/L (137-145) 04/30/22 04:44 Potassium 4.4 mmol/L (3.6-5.0) 04/30/22 04:44 Chloride 103.7 mmol/L (98-107) 04/30/22 04:44 Carbon Dioxide 25 mmol/L (22-30) 04/30/22 04:44 Anion Gap 13 mmol/L 04/30/22 04:44 BUN 16 mg/dL (9-20) 04/30/22 04:44 Creatinine 1.1 mg/dL (0.8-1.3) 04/30/22 04:44 Estimated GFR > 60 ml/min 04/30/22 04:44 BUN/Creatinine Ratio 15 % 04/30/22 04:44 Glucose 138 mg/dL (75-100) H 04/30/22 04:44 POC Glucose 130 mg/dL (70-105) H 04/30/22 00:19 Lactic Acid 1.50 mmol/L (0.7-2.0) 04/30/22 04:44 Calcium 8.9 mg/dL (8.4-10.2) 04/30/22 04:44 Ferritin 189.3 ng/mL (30.0-300.0) 04/29/22 09:33 Total Bilirubin 0.60 mg/dL (0.1-1.2) 04/28/22 20:37 AST 25 units/L (5-40) 04/28/22 20:37 ALT 20 units/L (7-56) 04/28/22 20:37 Alkaline Phosphatase 73 units/L (35-129) 04/28/22 20:37 Lactate Dehydrogenase 316 units/L (91-180) H 04/29/22 09:33 Troponin T < 0.010 ng/mL (0.00-0.029) 04/28/22 20:37 C-Reactive Protein 1.50 mg/dL (0.00-1.30) H 04/29/22 09:33 NT-Pro-B Natriuret Pep 30.06 pg/mL (0-450) 04/28/22 20:37 Total Protein 8.8 g/dL (6.3-8.2) H 04/28/22 20:37 Albumin 4.5 g/dL (3.9-5) 04/28/22 20:37 Albumin/Globulin Ratio 1.0 % 04/28/22 20:37 Triglycerides 214 mg/dL (2-149) H 04/30/22 04:44 Urine Color [place] (Yellow) 04/29/22 10:36 Urine Turbidity Cloudy (Clear) 04/29/22 10:36 Urine pH 5.0 (5.0-7.0) 04/29/22 10:36 Ur Specific [place] 1.046 (1.003-1.030) H 04/29/22 10:36 Urine Protein 100 mg/dl mg/dL (Negative) 04/29/22 10:36 Urine Glucose (UA) Neg mg/dL (Negative) 04/29/22 10:36 Urine Ketones Neg mg/dL (Negative) 04/29/22 10:36 Urine Blood Lg (Negative) 04/29/22 10:36 Urine Nitrite Neg (Negative) 04/29/22 10:36 Urine Bilirubin Neg (Negative) 04/29/22 10:36 Urine Urobilinogen < 2.0 mg/dL (<2.0) 04/29/22 10:36 Ur Leukocyte Esterase Mod (Negative) 04/29/22 10:36 Urine WBC (Auto) 66.0 /HPF (0.0-6.0) H 04/29/22 10:36 Urine RBC (Auto) > 182.0 /HPF (0.0-6.0) 04/29/22 10:36 U Epithel Cells (Auto) 2.0 /HPF (0-13.0) 04/29/22 10:36 Urine Bacteria (Auto) 1+ /HPF (Negative) 04/29/22 10:36 Hyaline Casts 107 /LPF 04/29/22 10:36 Urine Opiates Screen Presumptive positive 04/28/22 22:25 Urine Methadone Screen Presumptive negative 04/28/22 22:25 Ur Barbiturates Screen Presumptive negative 04/28/22 22:25 Ur Phencyclidine Scrn Presumptive negative 04/28/22 22:25 Ur Amphetamines Screen Presumptive positive 04/28/22 22:25 U Benzodiazepines Scrn Presumptive negative 04/28/22 22:25 Urine Cocaine Screen Presumptive negative 04/28/22 22:25 U Marijuana (THC) Screen Presumptive positive 04/28/22 22:25 Drugs of Abuse Note Disclamer 04/28/22 22:25 SARS-CoV-2 (PCR) Negative (Negative) 04/29/22 08:35 Microbiology: Microbiology 04/29/22 13:21 Peripheral/Venous Blood Culture - Preliminary Culture in Progress 04/29/22 13:21 Peripheral/Venous Blood Culture - Preliminary Culture in Progress Muhammad/IV: Voiding Method Indwelling Catheter Active Medications - Current Medications Current Medications: Generic Name Dose Route Start Last Admin Trade Name Freq PRN Reason Stop Dose Admin Acetaminophen 650 mg 04/29/22 00:26 Acetaminophen 650 Mg Rect Supp SC Q6H PRN Pain MILD(1-3)/Fever >100.5/RUSHING Albuterol/Ipratropium 1 ampul 04/29/22 02:00 04/29/22 20:52 Ipratropium/Albuterol Sulfate 3 Ml Ampul.Neb IH 1 ampul Q6HRT ARTURO Administration Arformoterol Tartrate 15 mcg 04/29/22 12:15 04/29/22 20:53 Arformoterol 15 Mcg/2 Ml Nebu IH 15 mcg Q12HRT ARTURO Administration Budesonide 0.5 mg 04/29/22 20:00 04/29/22 20:52 Budesonide 0.5 Mg/2 Ml Nebu IH 0.5 mg Q12HRT ARTURO Administration Famotidine 20 mg 04/29/22 10:00 04/29/22 22:33 Famotidine 20 Mg Tab FEEDTUBE 20 mg BID ARTURO Administration Fentanyl 50 mcg 04/29/22 00:53 04/29/22 03:45 Fentanyl 100 Mcg/2 Ml Inj IV 50 mcg Q10MIN PRN Administration ANALGESIA Heparin Sodium (Porcine) 5,000 unit 04/29/22 06:00 04/30/22 06:03 Heparin 5,000 Unit/1 Ml Vial SUB-Q 5,000 unit Q8HR ARTURO Administration Propofol 1,000 mg in 100 mls @ 2.381 mls/hr 04/28/22 23:00 04/30/22 06:15 Diprivan 10 Mg/Ml IV 40 mcg/kg/min TITR ARTURO 19.051 mls/hr Titration Protocol 5 MCG/KG/MIN Fentanyl Citrate 2,000 mcg in 100 mls @ 3.969 mls/hr 04/29/22 01:00 04/30/22 06:30 Fentanyl Drip Premix IV 2 mcg/kg/hr TITR ARTURO 7.938 mls/hr Titration Protocol 1 MCG/KG/HR NORepinephrine/NS 8 MG-250 ML 8 mg in 250 mls @ 3.75 mls/hr 04/29/22 11:00 Norepinephrine/Ns 8 Mg-250 Ml (Double Conc) IV TITRATE ARTURO Protocol 2 MCG/MIN Sodium Chloride 1,000 mls @ 75 mls/hr 04/29/22 12:15 04/30/22 00:25 Nacl 0.9% 1000 Ml IV 05/01/22 01:34 75 mls/hr DIRECT ARTURO Administration Methylprednisolone Sodium Succinate 40 mg 04/29/22 06:00 04/30/22 06:03 Methylprednisolone Sod Succinate 40 Mg/1 Ml Inj IV 40 mg Q8HR ARTURO Administration Midazolam HCl 5 mg 04/29/22 14:00 Midazolam 5 Mg/5 Ml Inj Mdv IV 04/30/22 23:59 ONCE NR Ondansetron HCl 4 mg 04/29/22 00:26 Ondansetron 4 Mg/2 Ml Inj IV Q8H PRN Nausea And Vomiting Sodium Chloride 10 ml 04/29/22 10:00 04/29/22 22:32 Sodium Chloride 0.9% 10 Ml Flush Syringe IV 10 ml BID ARTURO Administration Sodium Chloride 10 ml 04/29/22 00:26 Sodium Chloride 0.9% 10 Ml Flush Syringe IV PRN PRN LINE FLUSH Nutrition/Malnutrition Assess - Dietary Evaluation Nutrition/Malnutrition Findings: Nutrition Notes Start: 04/29/22 14:24 Freq: Status: Active Protocol: Document 04/29/22 14:25 RS (Rec: 04/29/22 14:33 RS [id number]) Nutrition Notes Need for Assessment generated from: MD Order Initial or Follow up Assessment Current Diagnosis Respiratory Failure Other Pertinent Diagnosis Dyspena, Amphetamine Abuse, Nictone Abuse Current Diet NPO Labs/Tests No recent labs Pertinent Medications Propofol at 19.05mL/hr Fentanyl drip at 7.94mL/hr Solumedrol 40mg Height 5 ft 9 in Weight 79.379 kg [place] Body Weight (kg) 72.72 BMI 25.8 Weight change and time frame 8.6% wt gain in 3 months Weight Status Overweight Subjective/Other Information MD consult for TF. Pt intubated and sedated. Propofol providing 503kcal/day . TOMMY diet hx at this time Percent of energy/protein needs met: 0%/0% Burn Absent Trauma Absent GI Symptoms None Current % PO Negligible Minimum of two criteria No #1 Nutrition Diagnosis Inadequate oral intake Etiology RF As Evidenced by Signs and Symptoms pt on vent and cannot consume food PO Is patient on ventilator? Yes Is Patient Ambulatory and/or Out of Bed No REE-([facility]-confined to bed) 7801.073 Calculation Used for Recommendations Kcal/kg Additional Notes Pro Needs: 95-159g/day (1.2-2g /kg BW/day) Fluid needs: 1mL/kcal Nutrition Intervention Change Diet Order: Start TF Nutrition Support: Vital AF 1.2 at 55mL/hr Kcal 1,584 Protein (gm) 99 Fluid (mL) 1,054 Goal #1 TF initiation/tolerance Goal #2 Pt will meet at least 75% of kcal/PRO needs via TF Anticipated Discharge Needs: TOMMY at this time Follow-Up By: 05/01/22 Additional Comments F/U TF tolerance/initiation
[2022-04-29] MEDS ORDERED: SODIUM CHLORIDE 0.9% 500 ML 500 ML IV ONE (11:00)
[2022-04-29] MEDS ORDERED: ETOMIDATE 20 MG/10 ML INJ IV ONE (11:00)
[2022-04-29] MEDS ORDERED: NORepinephrine/NS 8 MG-250 ML 8 MG/250 ML INFUS..BTL IV SCH (11:00)
[2022-04-29] MEDS ORDERED: SODIUM CHLORIDE 0.9% 500 ML 500 ML IV SCH (11:00)
--- NOTE | 2022-04-29 11:51 | Consultation ---
History of Present Illness Consult date: 04/29/22 Requesting physician: CHLOE SCHMITZ Reason for consult: other (Acute Hypoxemic Respiratory Failure) History of present illness: PULMONARY/CCM CONSULT NOTE (Full dictation # [id number]) Please see dictated notes for full details Past History Past Medical History: No medical history Past Surgical History: No surgical history Social history: smoking (Current daily smoker) Family history: no significant family history Medications and Allergies Allergies Allergy/AdvReac Type Severity Reaction Status Date / Time No Known Allergies Allergy Verified 04/28/22 17:41 Home Medications Medication Instructions Recorded Confirmed Last Taken Type Famotidine [Pepcid] 40 mg PO QHS #10 tablet 01/09/21 04/29/22 Unknown Rx Sucralfate [Carafate] 1 gm PO ACHS 7 Days #21 tablet 01/09/21 04/29/22 Unknown Rx Mupirocin [Bactroban 2% OINT] 1 applic TP TID 7 Days #1 tube 07/12/21 04/29/22 Unknown Rx Active Meds: Active Medications Acetaminophen (Acetaminophen 650 Mg Rect Supp) 650 mg MI Q6H PRN PRN Reason: Pain MILD(1-3)/Fever >100.5/RUSHING Albuterol/Ipratropium (Ipratropium/Albuterol Sulfate 3 Ml Ampul.Neb) 1 ampul IH Q6HRT ARTURO Last Admin: 04/29/22 08:22 Dose: 1 ampul Famotidine (Famotidine 20 Mg Tab) 20 mg FEEDTUBE BID ARTURO Last Admin: 04/29/22 10:16 Dose: 20 mg Fentanyl (Fentanyl 100 Mcg/2 Ml Inj) 50 mcg IV Q10MIN PRN PRN Reason: ANALGESIA Last Admin: 04/29/22 03:45 Dose: 50 mcg Heparin Sodium (Porcine) (Heparin 5,000 Unit/1 Ml Vial) 5,000 unit SUB-Q Q8HR ARTURO Last Admin: 04/29/22 10:36 Dose: Not Given Propofol (Diprivan 10 Mg/Ml) 1,000 mg in 100 mls @ 2.381 mls/hr IV TITR ARTURO; Protocol Last Titration: 04/29/22 10:18 Dose: 45 mcg/kg/min, 21.432 mls/hr Sodium Chloride (Nacl 0.9% 1000 Ml) 1,000 mls @ 75 mls/hr IV DIRECT ARTURO Last Admin: 04/29/22 10:10 Dose: 75 mls/hr Fentanyl Citrate (Fentanyl Drip Premix) 2,000 mcg in 100 mls @ 3.969 mls/hr IV TITR ARTURO; Protocol Last Admin: 04/29/22 10:22 Dose: 2 mcg/kg/hr, 7.938 mls/hr Sodium Chloride (Nacl 0.9% 500 Ml) 500 mls @ 999 mls/hr IV ONCE@1100 ARTURO Stop: 04/29/22 14:00 Last Admin: 04/29/22 10:35 Dose: 999 mls/hr NORepinephrine/NS 8 MG-250 ML (Norepinephrine/Ns 8 Mg-250 Ml (Double Conc)) 8 mg in 250 mls @ 3.75 mls/hr IV TITRATE ARTURO; Protocol Methylprednisolone Sodium Succinate (Methylprednisolone Sod Succinate 40 Mg/1 Ml Inj) 40 mg IV Q8HR ARTURO Last Admin: 04/29/22 10:36 Dose: Not Given Ondansetron HCl (Ondansetron 4 Mg/2 Ml Inj) 4 mg IV Q8H PRN PRN Reason: Nausea And Vomiting Sodium Chloride (Sodium Chloride 0.9% 10 Ml Flush Syringe) 10 ml IV BID [facility] Last Admin: 04/29/22 10:15 Dose: 10 ml Sodium Chloride (Sodium Chloride 0.9% 10 Ml Flush Syringe) 10 ml IV PRN PRN PRN Reason: LINE FLUSH Physical Examination Vital signs: Vital Signs Temp Pulse Resp BP Pulse Ox 99.0 F 114 H 16 140/100 99 04/28/22 17:34 04/28/22 17:34 04/28/22 17:34 04/28/22 17:34 04/28/22 17:34 Results - Laboratory Findings CBC and BMP: 04/28/22 20:37 04/28/22 20:37 ABG ABG pH 7.229 pH Units (7.350-7.450) L 04/29/22 08:30 ABG pCO2 68.9 mm Hg 04/29/22 08:30 ABG pO2 435.3 mm Hg (80.0-90.0) H 04/29/22 08:30 ABG O2 Saturation 99.6 % (95.0-99.0) H 04/29/22 08:30 PT/INR, D-dimer D-Dimer 172.65 ng/mlDDU (0-234) 04/28/22 20:37 Abnormal lab findings: Abnormal Labs 04/28/22 04/28/22 04/28/22 20:23 20:37 20:37 RBC 5.18 H MCH 27 L Seg Neutrophils % 73.7 H ABG pH 7.343 L ABG pO2 110.7 H ABG HCO3 ABG O2 Saturation ABG Base Excess -2.5 L ABG Hemoglobin 13.4 L Oxyhemoglobin BUN 5 L Glucose 109 H POC Glucose Lactate Dehydrogenase C-Reactive Protein Total Protein 8.8 H 04/29/22 04/29/22 04/29/22 00:30 08:30 09:33 RBC MCH Seg Neutrophils % ABG pH 7.213 L 7.229 L ABG pO2 75.5 L 435.3 H ABG HCO3 28.1 H ABG O2 Saturation 94.1 L 99.6 H ABG Base Excess -4.0 L ABG Hemoglobin 12.9 L Oxyhemoglobin 92.5 L BUN Glucose POC Glucose Lactate Dehydrogenase 316 H C-Reactive Protein 1.50 H Total Protein 04/29/22 11:28 RBC MCH Seg Neutrophils % ABG pH ABG pO2 ABG HCO3 ABG O2 Saturation ABG Base Excess ABG Hemoglobin Oxyhemoglobin BUN Glucose POC Glucose 112 H Lactate Dehydrogenase C-Reactive Protein Total Protein
[2022-04-29 12:44] LABS: Bilirubin,Urine NEG (Negative); Blood,Urine LG (Negative); Color,Urine Amber (Yellow); Urobilinogen,Urine < 2.0 mg/dL (<2.0)
[2022-04-29 13:10] LABS: Bacteria,Urine 1+ /HPF (Negative); Hyaline Casts,Urine 107 /LPF
[2022-04-29] MEDS ORDERED: MIDAZOLAM 5 MG/5 ML INJ MDV IV ONE (13:10)
[2022-04-29 13:25] LABS: RBC,Urine > 182.0 /HPF (0.0-6.0)
[2022-04-29] MEDS: ARFORMOTEROL 15 MCG/2 ML NEBU IH SCH ×2 (13:52→20:53)
[2022-04-29] MEDS ORDERED: MIDAZOLAM 5 MG/5 ML INJ MDV IV NR (14:00)
[2022-04-29] MEDS: BUDESONIDE 0.5 MG/2 ML NEBU IH SCH (20:52)
[2022-04-29 21:30] LABS: ABG Base Excess 0.7 mmol/L (-2.0-3.0); ABG HCO3 27.1 mmol/L (20.0-26.0); ABG Methemoglobin 0.6 % (0.0-1.5); ABG Oxygen Saturation 97.5 % (95.0-99.0); ABG PCO2 51.4 mm Hg; ABG PH 7.341 pH Units (7.350-7.450); ABG PO2 104.8 mm Hg (80.0-90.0)
--- NOTE | 2022-04-29 23:20 | Consultation ---
DATE OF CONSULTATION: 04/29/2022 CONSULTING PHYSICIAN: Dr. Yusef Fields. REASON FOR CONSULTATION: Acute hypoxemic respiratory failure, on mechanical ventilatory support. CHIEF COMPLAINT AND HISTORY OF PRESENT ILLNESS: The patient is a now 31-year-old male with a past medical history that was essentially described as being insignificant except for tobacco use history, daily smoker, came in complaining of shortness of breath and a cough that had been going on for a couple of days. At initial presentation, he stated his daughter had been sick. He performed a home COVID test that was negative. He had some substernal chest pain. He was evaluated by the Emergency Room doctor and essentially was found to be with bilateral crackles/rales. The patient was initially placed on bilevel positive airway pressure ventilation therapy; however, he decompensated and a decision was made to intubate him. This was done, rapid sequence intubation. Urine drug screen was positive for amphetamines and marijuana use and post-intubation, he was transferred to the intensive care unit where I stopped by to see him. When I stopped by to see him, he was on mechanical ventilator. He was on PRVC/AC mode, tidal volumes 450, rate of 24, PEEP of 6 and 50% FiO2. I do not have any history of vomiting or overt aspiration. It is unclear if the patient has a history of asthma or not. The above is as much of the history of presentation as I have. PAST MEDICAL HISTORY: Tobacco use disorder. PAST SURGICAL HISTORY: Unknown. MEDICATIONS: He was on at the time I stopped by to see him, according to the medication administration record included the following: Tylenol 650 mg per rectum q. 6 hours p.r.n. mild pain or fevers, albuterol, DuoNeb nebulizer treatments nebulized q. 6 hours, Pepcid 20 mg p.o. b.i.d., all p.o. meds via the feeding tube. Fentanyl drip was going at 2 mcg per kilogram per hour, heparin 5000 units subcutaneous q. 8 hours, Solu-Medrol 40 mg IV q. 8 hours, Levophed drip had been ordered to start at 2 mcg per minute, Zofran 4 mg IV q. 8 hours p.r.n. nausea and vomiting. Propofol drip was going at 45 mcg per kilogram per minute. ALLERGIES: No known drug allergies. DIET: Well-built gentleman, acute weight loss or gain history is unknown. FAMILY AND SOCIAL HISTORY: Apparently lives in the community. He does have a history of tobacco abuse, illicit drug use suggested by the urine drug screen. Alcohol use unclear. FAMILY HISTORY: Otherwise, noncontributory. REVIEW OF SYSTEMS: Unobtainable secondary to the patient's medical and mental condition. Since he has been here, no gross hematochezia or melena, no gross hematuria, no hematemesis, no bloody tracheal secretions, no witnessed seizures; however, they say he was agitated and he beat through the endotracheal tube, requiring it to be changed, but no grand mal seizure activity was reported. Review of systems otherwise unobtainable or as in body of history above. PHYSICAL EXAMINATION: VITAL SIGNS: At presentation in the Emergency Room with low-grade fever 99.0 degrees Fahrenheit, pulse of 114, respiratory rate of 16, blood pressure 140/100, O2 sats were 99%, inspired oxygen concentration at that time was not recorded. GENERAL: He is a well-built young male. Normocephalic, atraumatic on the mechanical ventilator without significant patient ventilator dyssynchrony. HEAD, EYES, EARS, NOSE AND THROAT: Anicteric. No conjunctival erythema. Oropharynx was moist. NECK: No gross jugular venous distention, no thyromegaly. Grossly, there were no palpable lymph nodes in the supraclavicular or submandibular lymph node chains. LUNGS: Auscultation of both lung [place] significant for diminished bilateral breath sounds, prolonged expiratory phase, bilateral expiratory wheezing. HEART: Sounds 1 and 2 are heard at the time of my evaluation, regular rate and rhythm without overt rubs or murmurs. ABDOMEN: Soft, flat, bowel sounds are positive, nontender. No palpable hepatosplenomegaly. EXTREMITIES: Without overt digital clubbing or cyanosis. No pedal edema. Pedal pulses are 2+ bilaterally. NEUROLOGIC: Pupils were equal, round, about 2 mm, sluggishly reactive to light. Extraocular muscle movements cannot be assessed. He did have spontaneous movements to all extremities. SKIN: Normal turgor in the areas examined without overt cellulitis or rash. Please see the registered nurses and wound care nurses' notes for full description of his skin. PSYCHIATRIC: Mood and affect could not be assessed, he was sedated. LABORATORY DATA: From my review are as follows: White cell count 7600, hemoglobin 14.1, hematocrit 43.7, platelet count 230. No manual differential. D-dimer within normal limits. Arterial blood gas showed a pH of 7.34, pCO2 of 44 and a pO2 of 111 on 30% at presentation. This morning, his pH is 7.23, pCO2 of 69, pO2 is 435, that was on 100%. Serum sodium 140, potassium 4.2, chloride 104, bicarbonate 22, BUN 5, creatinine 0.8, glucose 108. Liver function test within normal limits. Troponin within normal limits. Urine drug screen presumptive positive for opiates, amphetamines and THC. [id number] PCR negative initial test. CRP level 1.5. No microbiology studies. Radiographic studies have been reviewed. Presentation x-ray does show some evidence of hyperinflation with some flattening of the right hemidiaphragm. Post-intubation chest x-ray shows endotracheal tube tip in good position about 5 cm above the mireille, some suggestion of the enlargement of both right pulmonary artery trunks. No gross pneumothorax, no gross bony fracture. Again, some evidence of hyperinflation. A CT angio was done. I have reviewed the study. Good contrast phase timing. No gross filling defects that I can see consistent with clear pulmonary emboli. Lung windows really unremarkable. There is mention of borderline to minimally enlarged bilateral axillary lymph nodes, but no acute findings of the chest. ASSESSMENT: 1. Acute hypoxemic respiratory failure, on mechanical ventilatory support. 2. Possible acute asthma exacerbation. 3. Tobacco use disorder. 4. Hypercapnia with respiratory acidosis. 5. Oropharyngeal dysphagia. 6. Hypotension. PLAN: I will be treating him as an acute asthma exacerbation. He has been volume resuscitated. I am bothered by the possibly enlarged pulmonary artery trunks. A 2D echocardiogram has been ordered and will be followed. Oxygen will be weaned to keep sats greater than or equal to 90%. Aspiration precautions, ventilator-associated pneumonia bundle has been introduced. I am going to add long-acting bronchodilators with Brovana as well as inhaled corticosteroids. Continue the systemic steroids at current dose at this point in time. I do not see any acute indication for empiric antibiotic therapy. The CRP levels are really unremarkable. We will follow him clinically. No significant fevers at this point. Enteral nutrition will be the feeding modality of choice. I will be getting magnesium and phosphorus levels and we will hold out possible suspicion for alcohol abuse. Watch him for withdrawal. Volume resuscitation has improved his mean arterial pressures and I will continue gentle hydration. I will go at this point with normal saline running at 75 mL per hour for a couple more liters. He is on GI prophylaxis with Pepcid. He is on DVT prophylaxis with heparin. Flu and pneumonia vaccination will be addressed per protocol. He is critically ill on life-sustaining interventions including mechanical ventilatory support at very high risk of from cardiopulmonary system decompensation. At this time, I spent about 35-40 minutes of critical care time without overlap and excluding any procedural time that may be necessary. TID: [id number] RECEIPT: [id number] KORIN/FRANSISCO
[2022-04-30] MEDS: SODIUM CHLORIDE 0.9% 1000 ML 1,000 ML IV SCH ×2 (00:25→13:28)
[2022-04-30 05:16] LABS: Basophils % (Auto) 0.1 % (0.0-1.8); Hematocrit 34.5 % (35.5-45.6); Hemoglobin 11.2 gm/dl (11.8-15.2); Lymphocytes # (Auto) 1.1 K/mm3 (1.2-5.4); Lymphocytes % (Auto) 16.5 % (13.4-35.0); Mean Corpuscular HGB Conc 32 % (32-34); Mean Corpuscular Volume 84 fl (84-94); Monocytes # (Auto) 0.6 K/mm3 (0.0-0.8); Monocytes % (Auto) 9.1 % (0.0-7.3); Platelet Count 185 K/mm3 (140-440); Red Blood Count 4.09 M/mm3 (3.65-5.03); Red Cell Distribution Width 14.6 % (13.2-15.2)
[2022-04-30 05:31] LABS: BUN/Creatinine Ratio 15; Blood Urea Nitrogen 16 mg/dL (9-20); Calcium 8.9 mg/dL (8.4-10.2); Hemolysis Index 3
[2022-04-30] MEDS: fentaNYL DRIP Premix 2,000 MCG/100 ML BAG IV SCH ×2 (06:02→18:04)
[2022-04-30] MEDS: HEPARIN 5,000 UNIT/1 ML VIAL SUB-Q SCH ×3 (06:03→21:52)
[2022-04-30] MEDS: methylPREDNISolone Sod Succinate 40 MG/1 ML INJ IV SCH ×3 (06:03→21:52)
[2022-04-30] MEDS: ARFORMOTEROL 15 MCG/2 ML NEBU IH SCH ×2 (08:44→21:31)
[2022-04-30] MEDS: IPRATROPIUM/ALBUTEROL SULFATE 3 ML AMPUL.NEB IH SCH ×4 (08:44→22:56)
[2022-04-30] MEDS: BUDESONIDE 0.5 MG/2 ML NEBU IH SCH ×2 (08:44→21:31)
[2022-04-30] MEDS: FAMOTIDINE 20 MG TAB FEEDTUBE SCH ×2 (09:35→21:53)
--- NOTE | 2022-04-30 10:01 | Electrocardiograph Report ---
[facility] Test Date: 2022-04-28 Test Time: 19:56:31 Pat Name: DEEPIKA KINCAID Department: Room: A262 1 Gender: M [employer] Installer: CAROLEE : 1990 Requested By: MOHIT KRAUSE Order Number: [id number] Reading MD: Ghulam Key Measurements Intervals [place] Rate: 102 P: 79 WI: 148 QRS: -32 QRSD: 103 T: 48 QT: 343 QTc: 447 Interpretive Statements Sinus tachycardia Left axis deviation ST elev, probable normal early repol pattern No previous ECG available for comparison Electronically Signed On 04-30-2022 10:00:59 EDT by Ghulam Key
[2022-04-30 11:32] LABS: ABG Base Excess 1.7 mmol/L (-2.0-3.0); ABG HCO3 28.2 mmol/L (20.0-26.0); ABG Methemoglobin 0.5 % (0.0-1.5); ABG Oxygen Saturation 97.8 % (95.0-99.0); ABG PCO2 52.9 mm Hg; ABG PH 7.345 pH Units (7.350-7.450); ABG PO2 111.2 mm Hg (80.0-90.0)
--- NOTE | 2022-04-30 13:44 | Progress Note ---
Assessment and Plan Acute hypoxemic respiratory failure on mechanical ventilatory support Possible acute asthma exacerbation Tobacco use disorder Acute on Chronic Respiratory acidosis Oropharyngeal dysphagia Hypotension - stopped SBT and rest on full support - add scopolamine patch - add Seroquel 150 mg p.o. bid - get 12 lead EKG in am re: Qtc - use precedex during SBT tommorrow - continue daily SAT and SBT assessment as tolerated - continue to wean supplemental oxygen for target O2 sat's > 90% acutely - VAP bundle addressed - continue lung protective strategies - continue bronchodilators (FADI & LABA) - continue systemic steroids with slow taper - with pulmonary hygiene per RT - wean per pulmonary driven protocols otherwise - avoid nephrotoxins, renally dose all medications - AB's per ID rec's - prn analgesia per CPOT score- continue accuchecks with glycemic control per SSI (While critically ill target blood glucose of 140-180 mg/dL; avoid hypoglycemia) - sedation prn for target RASS 0 to -1 - Maintenance of sleep-wake cycle, avoid delirium - continue enteral nutritional support at goal rate as tolerated - G.I. & VTE prophylaxis - PT/OT/ROM exercises - continue mobility protocols for pressure ulcer prophylaxis - Monitor hemodynamics closely - continue other care per attending / other consultants - discharge planning ongoing concurrently COVID SPECIFIC INTERVENTIONS - repeat COVID-19 test result pending .... Re-evaluate in am & prn CONDITION: CRITICAL PROGNOSIS: GUARDED CODE STATUS: FULL CODE The high probability of a clinically significant, sudden or life-threatening deterioration of the [respiratory, cardiovascular, GI & neurologic] system(s) required my full and direct attention, intervention and personal management. The aggregate critical care time was [37] minutes without overlap. Time includes spent on; [x] Data Review and interpretation [x] Patient assessment and monitoring of vital signs [x] Documentation [x] Medication orders and management Subjective Date of service: 04/30/22 Principal diagnosis: AHRF on MVS; AE-Asthma; Tobacco abuse; Oropharyngeal dysphagia; Hypotension Interval history: Patient is seen today for: Acute hypoxemic respiratory failure on MVS; Acute asthma exacerbation; Tobacco use disorder; Acute on Chronic Respiratory acidosis; Oropharyngeal dysphagia; Hypotension Seen and examined at bedside; 24hour events reviewed; nursing and respiratory care staff consulted; no adverse overnight events reported to me; resting in bed; failed SBT with increased work of breathing; secretions large; no N/V/F/C Objective Vital Signs - 12hr 04/30/22 04/30/22 04/30/22 01:45 02:00 02:15 Temperature Pulse Rate 102 H 100 H 98 H Pulse Rate [ Bilateral Throughout] Pulse Rate [ From Monitor] Respiratory 12 20 24 Rate Respiratory Rate [Bilateral Throughout] Blood Pressure 98/44 89/41 91/40 O2 Sat by Pulse 98 98 97 Oximetry 04/30/22 04/30/22 04/30/22 02:30 02:45 03:00 Temperature Pulse Rate 105 H 107 H 110 H Pulse Rate [ Bilateral Throughout] Pulse Rate [ From Monitor] Respiratory 11 L 19 13 Rate Respiratory Rate [Bilateral Throughout] Blood Pressure 106/57 105/59 116/62 O2 Sat by Pulse 97 100 99 Oximetry 04/30/22 04/30/22 04/30/22 03:15 03:30 03:45 Temperature Pulse Rate 102 H 96 H 94 H Pulse Rate [ Bilateral Throughout] Pulse Rate [ From Monitor] Respiratory 12 11 L 24 Rate Respiratory Rate [Bilateral Throughout] Blood Pressure 105/49 102/50 97/46 O2 Sat by Pulse 97 97 98 Oximetry 04/30/22 04/30/22 04/30/22 04:00 04:15 04:24 Temperature 98 F Pulse Rate 94 H 91 H 93 H Pulse Rate [ Bilateral Throughout] Pulse Rate [ 94 H From Monitor] Respiratory 16 13 Rate Respiratory Rate [Bilateral Throughout] Blood Pressure 96/43 96/44 96/44 O2 Sat by Pulse 98 97 99 Oximetry 04/30/22 04/30/22 04/30/22 04:30 04:45 05:00 Temperature Pulse Rate 90 97 H 99 H Pulse Rate [ Bilateral Throughout] Pulse Rate [ From Monitor] Respiratory 7 L 10 L 9 L Rate Respiratory Rate [Bilateral Throughout] Blood Pressure 104/46 105/58 104/59 O2 Sat by Pulse 98 100 98 Oximetry 04/30/22 04/30/22 04/30/22 05:15 05:30 05:45 Temperature Pulse Rate 100 H 101 H 95 H Pulse Rate [ Bilateral Throughout] Pulse Rate [ From Monitor] Respiratory 10 L 12 14 Rate Respiratory Rate [Bilateral Throughout] Blood Pressure 118/58 115/64 124/55 O2 Sat by Pulse 100 98 Oximetry 04/30/22 04/30/22 04/30/22 06:00 06:15 06:30 Temperature Pulse Rate 93 H 90 86 Pulse Rate [ Bilateral Throughout] Pulse Rate [ From Monitor] Respiratory 10 L 10 L 8 L Rate Respiratory Rate [Bilateral Throughout] Blood Pressure 106/55 104/50 96/50 O2 Sat by Pulse 97 98 Oximetry 04/30/22 04/30/22 04/30/22 06:45 07:00 07:14 Temperature 98.1 F Pulse Rate 84 82 Pulse Rate [ Bilateral Throughout] Pulse Rate [ From Monitor] Respiratory 8 L 8 L Rate Respiratory Rate [Bilateral Throughout] Blood Pressure 97/53 94/58 O2 Sat by Pulse 98 97 Oximetry 04/30/22 04/30/22 04/30/22 07:15 07:30 07:45 Temperature Pulse Rate 79 77 76 Pulse Rate [ Bilateral Throughout] Pulse Rate [ From Monitor] Respiratory 9 L 9 L 9 L Rate Respiratory Rate [Bilateral Throughout] Blood Pressure 102/55 111/55 103/64 O2 Sat by Pulse 99 99 Oximetry 04/30/22 04/30/22 04/30/22 08:00 08:15 08:30 Temperature 98.1 F Pulse Rate 85 86 84 Pulse Rate [ Bilateral Throughout] Pulse Rate [ 77 From Monitor] Respiratory 14 13 12 Rate Respiratory Rate [Bilateral Throughout] Blood Pressure 121/72 127/82 116/82 O2 Sat by Pulse 100 100 99 Oximetry 04/30/22 04/30/22 04/30/22 08:34 08:44 08:45 Temperature Pulse Rate 91 H 111 H Pulse Rate [ 98 H Bilateral Throughout] Pulse Rate [ From Monitor] Respiratory 13 19 Rate Respiratory 16 Rate [Bilateral Throughout] Blood Pressure 116/82 138/95 O2 Sat by Pulse 100 100 Oximetry 04/30/22 04/30/22 04/30/22 09:00 09:15 09:30 Temperature Pulse Rate 100 H 105 H 97 H Pulse Rate [ Bilateral Throughout] Pulse Rate [ From Monitor] Respiratory 15 18 16 Rate Respiratory Rate [Bilateral Throughout] Blood Pressure 136/79 118/90 115/85 O2 Sat by Pulse 100 100 Oximetry 04/30/22 04/30/22 04/30/22 09:45 10:00 10:15 Temperature Pulse Rate 94 H 87 80 Pulse Rate [ Bilateral Throughout] Pulse Rate [ From Monitor] Respiratory 14 9 L 7 L Rate Respiratory Rate [Bilateral Throughout] Blood Pressure 120/81 127/72 116/82 O2 Sat by Pulse 99 100 Oximetry 04/30/22 04/30/22 04/30/22 10:31 10:45 11:00 Temperature Pulse Rate 86 86 86 Pulse Rate [ Bilateral Throughout] Pulse Rate [ From Monitor] Respiratory 8 L 7 L 8 L Rate Respiratory Rate [Bilateral Throughout] Blood Pressure 127/72 132/71 118/71 O2 Sat by Pulse 99 100 100 Oximetry 04/30/22 04/30/22 04/30/22 11:15 11:30 11:38 Temperature 98.7 F Pulse Rate 83 81 Pulse Rate [ Bilateral Throughout] Pulse Rate [ From Monitor] Respiratory 9 L 9 L Rate Respiratory Rate [Bilateral Throughout] Blood Pressure 117/65 106/73 O2 Sat by Pulse 100 Oximetry 04/30/22 04/30/22 04/30/22 11:45 12:00 12:15 Temperature Pulse Rate 79 84 85 Pulse Rate [ Bilateral Throughout] Pulse Rate [ From Monitor] Respiratory 8 L 9 L 11 L Rate Respiratory Rate [Bilateral Throughout] Blood Pressure 118/72 122/78 126/77 O2 Sat by Pulse 100 99 Oximetry 04/30/22 04/30/22 04/30/22 12:30 12:45 13:10 Temperature Pulse Rate 90 85 105 H Pulse Rate [ Bilateral Throughout] Pulse Rate [ From Monitor] Respiratory 17 10 L Rate Respiratory Rate [Bilateral Throughout] Blood Pressure 119/88 133/76 140/86 O2 Sat by Pulse 98 100 Oximetry Constitutional: appears uncomfortable Eyes: non-icteric ENT: oropharynx moist, oropharyngeal exudate pre Neck: supple, no lymphadenopathy, no JVD Effort: mildly labored Ascultation: Bilateral: wheezes, rales Percussion: Bilateral: not dull Cardiovascular: regular rate and rhythm Gastrointestinal: normoactive bowel sounds, soft, non-tender, non-distended Integumentary: normal Extremities: no cyanosis, no edema, pulses normal, no ischemia or petechiae Neurologic: non-focal exam, pupils equal and round, CN II-XII normal, motor strength normal and Psychiatric: anxious CBC and BMP: 04/30/22 04:44 04/30/22 04:44 ABG, PT/INR, D-dimer: ABG ABG pH 7.345 pH Units (7.350-7.450) L 04/30/22 10:52 ABG pCO2 52.9 mm Hg 04/30/22 10:52 ABG pO2 111.2 mm Hg (80.0-90.0) H 04/30/22 10:52 ABG O2 Saturation 97.8 % (95.0-99.0) 04/30/22 10:52 PT/INR, D-dimer D-Dimer 172.65 ng/mlDDU (0-234) 04/28/22 20:37 Abnormal lab findings: Abnormal Labs 04/28/22 04/28/22 04/28/22 20:23 20:37 20:37 RBC 5.18 H Hgb Hct MCH 27 L [place] % (Auto) Lymph # (Auto) Seg Neutrophils % 73.7 H ABG pH 7.343 L ABG pO2 110.7 H ABG HCO3 ABG O2 Saturation ABG Base Excess -2.5 L ABG Hemoglobin 13.4 L Oxyhemoglobin BUN 5 L Glucose 109 H POC Glucose Lactate Dehydrogenase C-Reactive Protein Total Protein 8.8 H Triglycerides Ur Specific [place] Urine WBC (Auto) 04/29/22 04/29/22 04/29/22 00:30 08:30 09:33 RBC Hgb Hct MCH [place] % (Auto) Lymph # (Auto) Seg Neutrophils % ABG pH 7.213 L 7.229 L ABG pO2 75.5 L 435.3 H ABG HCO3 28.1 H ABG O2 Saturation 94.1 L 99.6 H ABG Base Excess -4.0 L ABG Hemoglobin 12.9 L Oxyhemoglobin 92.5 L BUN Glucose POC Glucose Lactate Dehydrogenase 316 H C-Reactive Protein 1.50 H Total Protein Triglycerides Ur Specific [place] Urine WBC (Auto) 04/29/22 04/29/22 04/29/22 10:36 11:28 21:09 RBC Hgb Hct MCH [place] % (Auto) Lymph # (Auto) Seg Neutrophils % ABG pH 7.341 L ABG pO2 104.8 H ABG HCO3 27.1 H ABG O2 Saturation ABG Base Excess ABG Hemoglobin 12.8 L Oxyhemoglobin BUN Glucose POC Glucose 112 H Lactate Dehydrogenase C-Reactive Protein Total Protein Triglycerides Ur Specific [place] 1.046 H Urine WBC (Auto) 66.0 H 04/30/22 04/30/22 04/30/22 00:19 04:44 04:44 RBC Hgb 11.2 L Hct 34.5 L D MCH 27 L [place] % (Auto) 9.1 H Lymph # (Auto) 1.1 L Seg Neutrophils % 74.3 H ABG pH ABG pO2 ABG HCO3 ABG O2 Saturation ABG Base Excess ABG Hemoglobin Oxyhemoglobin BUN Glucose 138 H POC Glucose 130 H Lactate Dehydrogenase C-Reactive Protein Total Protein Triglycerides 214 H Ur Specific [place] Urine WBC (Auto) 04/30/22 04/30/22 10:52 11:16 RBC Hgb Hct MCH [place] % (Auto) Lymph # (Auto) Seg Neutrophils % ABG pH 7.345 L ABG pO2 111.2 H ABG HCO3 28.2 H ABG O2 Saturation ABG Base Excess ABG Hemoglobin 12.2 L Oxyhemoglobin BUN Glucose POC Glucose 135 H Lactate Dehydrogenase C-Reactive Protein Total Protein Triglycerides Ur Specific [place] Urine WBC (Auto) Chest x-ray: pending Allied health notes reviewed: nursing
[2022-04-30] MEDS ORDERED: MINERAL OIL/PETROLATUM, WHITE OPHTH OINT 3.5 GM OU PRN (13:53)
[2022-04-30] MEDS ORDERED: LIP THERAPY VASELINE TP PRN (13:53)
--- NOTE | 2022-04-30 15:01 | XRay Report ---
CHEST 1 VIEW 10/07/2009 1:01 AM INDICATION / CLINICAL INFORMATION: Pneumonia. COMPARISON: 04/28/2022 FINDINGS: SUPPORT DEVICES: Stable, satisfactory device positioning. HEART / MEDIASTINUM: No significant abnormality. LUNGS / PLEURA: No significant pulmonary or pleural abnormality. No pneumothorax. ADDITIONAL FINDINGS: No significant additional findings. IMPRESSION: 1. No acute findings. Signer Name: Yonatan Vasquez MD Signed: 04/30/2022 2:30 PM Workstation Name: [id number]
--- NOTE | 2022-04-30 15:34 | Progress Note ---
Assessment and Plan Assessment and plan: This is a 31-year-old male with current nicotine abuse admitted with acute hypoxic respiratory failure s/p intubation with a UDS positive for amphetamine Neuro: Polysubstance abuse (nicotine, amphetamines, THC) -UDS positive for amphetamine, THC and opiates -Sedated with propofol and fentanyl -Added Precedex drip if needed, CCM to add Seroquel -RASS goal 0 to -1 -Reorientation as needed -Maintain sleep-wake cycle -As needed analgesia Cardiac: NAD -Blood pressure monitoring per protocol -Echocardiogram shows LVEF greater than 65%, mild concentric LVH Respiratory: Acute hypoxic respiratory failure -CCM consulted, appreciate recommendations -Intubated on 04/29 with 7.50 ETT at 22 the lips -A.m. vent settings: CPAP 07/12 -See RT notes for titration -Placed back on assist control due to agitation -Wilbert Walton, Solu-Medrol -A.m. ABG and CXR noted -VAP bundle -SPO2 monitoring GI: NAD -24 hours +1077 mL -PPI -NTR consulted for tube feedings -BR: Senokot : NAD -Monitor intake and output -Renally dose medications -Avoid nephrotoxic medications -Trend BMP ID: COVID-19 PUI -Presented with tachycardia, acute respiratory failure -Rapid COVID-19 negative, influenza AMB negative -Infectious disease consulted, appreciate recommendation -Contact and droplet precautions -Procal 0.06 -f/u blood culture -04/29 BC x2 NGTD -04/29 UC NGTD -Monitor WBC and temperature curve Endo: NAD -Avoid hypoglycemia -SSI -Accu-Cheks q. 6 Heme: NAD -Trend CBC -Transfuse hemoglobin less than 7 -SCDs to BLE while in bed The high probability of a clinically significant, sudden or life threatening deterioration of the [multiple] system(s) required my full and direct attention, intervention and personal management. The aggregate critical care time was [60] minutes. This time is in addition to time spent performing reported procedures but includes the following: [x] Data Review and interpretation [x] Patient assessment and monitoring of vital signs [x] Documentation [x] Medication orders and management Disposition Plan: icu Total Time Spent with Patient (Minutes): 60 History Interval history: This 31-year-old male with current nicotine abuse presented to the emergency department on 04/29 with complaints of shortness of breath and cough ongoing for the past 2 days and according to ED staff patient stated he had chest discomfort with cough and indicated that an at home COVID test was negative. While in the emergency department patient was found to be in acute respiratory distress with wheezing, tachypnea and tachycardia and was intubated. Work-up in the emergency department included lab work and CXR which was unremarkable, CTA chest showed no pulmonary embolism without acute findings and UDS was positive for marijuana and amphetamines. Patient was admitted to the hospitalist service with consults to [facility] for acute hypoxic respiratory failure. Hospital course to date: 04/29: Intubated/sedated. s/p reintubation, patient bit through ETT. Max on propofol and fentanyl, now with hypotension and tachycardia. Rapid COVID negative. Patient is afebrile with no leukocytosis. Wean sedatio for RASS goal 0 to -1, IVF bolus administered. Probably related to sedation but given unclear etiology for acute respiratory failure and now with hypotension, will also r/o infectious process. Orders placed for COVID and FLU PCR, UA, blood culture, and procal. Hold off on IV Abx for now, pending results. 2D echo pending. [facility] is also following 04/30: Patient was on CPAP trial this morning and ABG was acceptable. Patient was about to be extubated however he became severely agitated, tachypneic, tachycardic and had copious coughing. Patient was sedated with plans to pos sibly extubate tomorrow morning. COVID-19 PCR pending. Hospitalist Physical - Constitutional Vitals: Temp Pulse Resp BP Pulse Ox 98.7 F 105 H 10 L 140/86 100 04/30/22 12:00 04/30/22 13:10 04/30/22 12:45 04/30/22 13:10 04/30/22 13:10 General appearance: Present: no acute distress, other (Intubated and sedated) - EENT Eyes: Present: PERRL, EOM intact ENT: hearing intact, clear oral mucosa, dentition normal - Neck Neck: Present: supple, normal ROM - Respiratory Respiratory effort: normal Respiratory: bilateral: diminished - Cardiovascular Rhythm: regular Heart Sounds: Present: S1 & S2. Absent: systolic murmur, diastolic murmur - Extremities Extremities: no ischemia, pulses intact, pulses symmetrical, No edema, normal temperature, normal color Peripheral Pulses: within normal limits - Abdominal General gastrointestinal: soft, non-tender, non-distended, normal bowel sounds - Integumentary Integumentary: Present: warm, dry - Psychiatric Psychiatric: cooperative - Neurologic Neurologic: CNII-XII intact, no focal deficits, moves all extremities, other (follows commands this am) - Allied Health Allied health notes reviewed: nursing, RT, social work HEART Score - HEART Score Troponin: Troponin T < 0.010 ng/mL (0.00-0.029) 04/28/22 20:37 Results - Labs CBC & Chem 7: 04/30/22 04:44 04/30/22 04:44 Labs: Laboratory Last Values WBC 6.5 K/mm3 (4.5-11.0) 04/30/22 04:44 RBC 4.09 M/mm3 (3.65-5.03) 04/30/22 04:44 Hgb 11.2 gm/dl (11.8-15.2) L 04/30/22 04:44 Hct 34.5 % (35.5-45.6) L D 04/30/22 04:44 MCV 84 fl (84-94) 04/30/22 04:44 MCH 27 pg (28-32) L 04/30/22 04:44 MCHC 32 % (32-34) 04/30/22 04:44 RDW 14.6 % (13.2-15.2) 04/30/22 04:44 Plt Count 185 K/mm3 (140-440) 04/30/22 04:44 Lymph % (Auto) 16.5 % (13.4-35.0) 04/30/22 04:44 [place] % (Auto) 9.1 % (0.0-7.3) H 04/30/22 04:44 Eos % (Auto) 0.0 % (0.0-4.3) 04/30/22 04:44 Baso % (Auto) 0.1 % (0.0-1.8) 04/30/22 04:44 Lymph # (Auto) 1.1 K/mm3 (1.2-5.4) L 04/30/22 04:44 [place] # (Auto) 0.6 K/mm3 (0.0-0.8) 04/30/22 04:44 Eos # (Auto) 0.0 K/mm3 (0.0-0.4) 04/30/22 04:44 Baso # (Auto) 0.0 K/mm3 (0.0-0.1) 04/30/22 04:44 Seg Neutrophils % 74.3 % (40.0-70.0) H 04/30/22 04:44 Seg Neutrophils # 4.8 K/mm3 (1.8-7.7) 04/30/22 04:44 D-Dimer 172.65 ng/mlDDU (0-234) 04/28/22 20:37 ABG pH 7.345 pH Units (7.350-7.450) L 04/30/22 10:52 ABG pCO2 52.9 mm Hg 04/30/22 10:52 ABG pO2 111.2 mm Hg (80.0-90.0) H 04/30/22 10:52 ABG HCO3 28.2 mmol/L (20.0-26.0) H 04/30/22 10:52 ABG O2 Saturation 97.8 % (95.0-99.0) 04/30/22 10:52 ABG O2 Content 16.6 (0.0-44) 04/30/22 10:52 ABG Base Excess 1.7 mmol/L (-2.0-3.0) 04/30/22 10:52 ABG Hemoglobin 12.2 gm/dl (14.0-18.0) L 04/30/22 10:52 ABG Carboxyhemoglobin 0.9 % (0.0-5.0) 04/30/22 10:52 ABG Methemoglobin 0.5 % (0.0-1.5) 04/30/22 10:52 Oxyhemoglobin 96.4 % (95.0-99.0) 04/30/22 10:52 FiO2 40 % 04/30/22 10:52 Sodium 137 mmol/L (137-145) 04/30/22 04:44 Potassium 4.4 mmol/L (3.6-5.0) 04/30/22 04:44 Chloride 103.7 mmol/L (98-107) 04/30/22 04:44 Carbon Dioxide 25 mmol/L (22-30) 04/30/22 04:44 Anion Gap 13 mmol/L 04/30/22 04:44 BUN 16 mg/dL (9-20) 04/30/22 04:44 Creatinine 1.1 mg/dL (0.8-1.3) 04/30/22 04:44 Estimated GFR > 60 ml/min 04/30/22 04:44 BUN/Creatinine Ratio 15 % 04/30/22 04:44 Glucose 138 mg/dL (75-100) H 04/30/22 04:44 POC Glucose 135 mg/dL (70-105) H 04/30/22 11:16 Lactic Acid 1.50 mmol/L (0.7-2.0) 04/30/22 04:44 Calcium 8.9 mg/dL (8.4-10.2) 04/30/22 04:44 Ferritin 189.3 ng/mL (30.0-300.0) 04/29/22 09:33 Total Bilirubin 0.60 mg/dL (0.1-1.2) 04/28/22 20:37 AST 25 units/L (5-40) 04/28/22 20:37 ALT 20 units/L (7-56) 04/28/22 20:37 Alkaline Phosphatase 73 units/L (35-129) 04/28/22 20:37 Lactate Dehydrogenase 316 units/L (91-180) H 04/29/22 09:33 Troponin T < 0.010 ng/mL (0.00-0.029) 04/28/22 20:37 C-Reactive Protein 1.50 mg/dL (0.00-1.30) H 04/29/22 09:33 NT-Pro-B Natriuret Pep 30.06 pg/mL (0-450) 04/28/22 20:37 Total Protein 8.8 g/dL (6.3-8.2) H 04/28/22 20:37 Albumin 4.5 g/dL (3.9-5) 04/28/22 20:37 Albumin/Globulin Ratio 1.0 % 04/28/22 20:37 Triglycerides 214 mg/dL (2-149) H 04/30/22 04:44 Procalcitonin 0.06 ng/mL (<0.15) 04/30/22 04:44 Urine Color [place] (Yellow) 04/29/22 10:36 Urine Turbidity Cloudy (Clear) 04/29/22 10:36 Urine pH 5.0 (5.0-7.0) 04/29/22 10:36 Ur Specific [place] 1.046 (1.003-1.030) H 04/29/22 10:36 Urine Protein 100 mg/dl mg/dL (Negative) 04/29/22 10:36 Urine Glucose (UA) Neg mg/dL (Negative) 04/29/22 10:36 Urine Ketones Neg mg/dL (Negative) 04/29/22 10:36 Urine Blood Lg (Negative) 04/29/22 10:36 Urine Nitrite Neg (Negative) 04/29/22 10:36 Urine Bilirubin Neg (Negative) 04/29/22 10:36 Urine Urobilinogen < 2.0 mg/dL (<2.0) 04/29/22 10:36 Ur Leukocyte Esterase Mod (Negative) 04/29/22 10:36 Urine WBC (Auto) 66.0 /HPF (0.0-6.0) H 04/29/22 10:36 Urine RBC (Auto) > 182.0 /HPF (0.0-6.0) 04/29/22 10:36 U Epithel Cells (Auto) 2.0 /HPF (0-13.0) 04/29/22 10:36 Urine Bacteria (Auto) 1+ /HPF (Negative) 04/29/22 10:36 Hyaline Casts 107 /LPF 04/29/22 10:36 Urine Opiates Screen Presumptive positive 04/28/22 22:25 Urine Methadone Screen Presumptive negative 04/28/22 22:25 Ur Barbiturates Screen Presumptive negative 04/28/22 22:25 Ur Phencyclidine Scrn Presumptive negative 04/28/22 22:25 Ur Amphetamines Screen Presumptive positive 04/28/22 22:25 U Benzodiazepines Scrn Presumptive negative 04/28/22 22:25 Urine Cocaine Screen Presumptive negative 04/28/22 22:25 U Marijuana (THC) Screen Presumptive positive 04/28/22 22:25 Drugs of Abuse Note Disclamer 04/28/22 22:25 SARS-CoV-2 (PCR) Negative (Negative) 04/29/22 08:35 Influenza A (RT-PCR) Negative (Negative) 04/30/22 09:35 Influenza B (RT-PCR) Negative (Negative) 04/30/22 09:35 Microbiology: Microbiology 04/29/22 10:36 Urine,Clean Catch Urine Culture - Preliminary NO GROWTH AFTER 24 HOURS 04/29/22 13:21 Peripheral/Venous Blood Culture - Preliminary NO GROWTH AFTER 24 HOURS 04/29/22 13:21 Peripheral/Venous Blood Culture - Preliminary NO GROWTH AFTER 24 HOURS Muhammad/IV: Voiding Method Indwelling Catheter Active Medications - Current Medications Current Medications: Generic Name Dose Route Start Last Admin Trade Name Freq PRN Reason Stop Dose Admin Acetaminophen 650 mg 04/29/22 00:26 Acetaminophen 650 Mg Rect Supp WI Q6H PRN Pain MILD(1-3)/Fever >100.5/RUSHING Albuterol/Ipratropium 1 ampul 04/29/22 02:00 04/30/22 14:35 Ipratropium/Albuterol Sulfate 3 Ml Ampul.Neb IH 1 ampul Q6HRT ARTURO Administration Arformoterol Tartrate 15 mcg 04/29/22 12:15 04/30/22 08:44 Arformoterol 15 Mcg/2 Ml Nebu IH 15 mcg Q12HRT ARTURO Administration Budesonide 0.5 mg 04/29/22 20:00 04/30/22 08:44 Budesonide 0.5 Mg/2 Ml Nebu IH 0.5 mg Q12HRT ARTURO Administration Famotidine 20 mg 04/29/22 10:00 04/30/22 09:35 Famotidine 20 Mg Tab FEEDTUBE 20 mg BID ARTURO Administration Fentanyl 50 mcg 04/29/22 00:53 04/29/22 03:45 Fentanyl 100 Mcg/2 Ml Inj IV 50 mcg Q10MIN PRN Administration ANALGESIA Heparin Sodium (Porcine) 5,000 unit 04/29/22 06:00 04/30/22 13:00 Heparin 5,000 Unit/1 Ml Vial SUB-Q 5,000 unit Q8HR ARTURO Administration Hydrophilic Ointment 1 applic 04/30/22 13:53 Lip Therapy Vaseline TP Q2HR PRN Dry Lips Propofol 1,000 mg in 100 mls @ 2.381 mls/hr 04/28/22 23:00 04/30/22 13:10 Diprivan 10 Mg/Ml IV 40 mcg/kg/min TITR ARTURO 19.051 mls/hr Titration Protocol 5 MCG/KG/MIN Fentanyl Citrate 2,000 mcg in 100 mls @ 3.969 mls/hr 04/29/22 01:00 04/30/22 13:10 Fentanyl Drip Premix IV 2 mcg/kg/hr TITR ARTURO 7.938 mls/hr Titration Protocol 1 MCG/KG/HR NORepinephrine/NS 8 MG-250 ML 8 mg in 250 mls @ 3.75 mls/hr 04/29/22 11:00 Norepinephrine/Ns 8 Mg-250 Ml (Double Conc) IV TITRATE ARTURO Protocol 2 MCG/MIN Sodium Chloride 1,000 mls @ 75 mls/hr 04/29/22 12:15 04/30/22 13:28 Nacl 0.9% 1000 Ml IV 05/01/22 01:34 75 mls/hr DIRECT ARTURO Administration Dexmedetomidine HCl 400 mcg/ 104 mls @ 4.128 mls/hr 04/30/22 10:00 Sodium Chloride IV TITRATE ARTURO Protocol 0.2 MCG/KG/HR Methylprednisolone Sodium Succinate 40 mg 04/29/22 06:00 04/30/22 13:00 Methylprednisolone Sod Succinate 40 Mg/1 Ml Inj IV 40 mg Q8HR ARTURO Administration Midazolam HCl 5 mg 04/29/22 14:00 Midazolam 5 Mg/5 Ml Inj Mdv IV 04/30/22 23:59 ONCE NR Multi-Ingred Cream/Lotion/Oil/Oint 1 applic 04/30/22 13:53 Mineral Oil/Petrolatum, White Ophth Oint 3.5 Gm OU Q4HR PRN Dry Eye(s) Ondansetron HCl 4 mg 04/29/22 00:26 Ondansetron 4 Mg/2 Ml Inj IV Q8H PRN Nausea And Vomiting Scopolamine 1 each 05/03/22 10:00 Scopolamine Transdermal Patch 72 Hr TD Q3D ARTURO Senna/Docusate Sodium 1 tab 04/30/22 22:00 Sennosides/Docusate Sodium 8.6/50 Mg Tab FEEDTUBE BID ARTURO Sodium Chloride 10 ml 04/29/22 10:00 04/30/22 09:35 Sodium Chloride 0.9% 10 Ml Flush Syringe IV 10 ml BID ARTURO Administration Sodium Chloride 10 ml 04/29/22 00:26 Sodium Chloride 0.9% 10 Ml Flush Syringe IV PRN PRN LINE FLUSH Nutrition/Malnutrition Assess - Dietary Evaluation Nutrition/Malnutrition Findings: Nutrition Notes Start: 04/29/22 14:24 Freq: Status: Active Protocol: Document 04/29/22 14:25 RS (Rec: 04/29/22 14:33 RS [id number]) Nutrition Notes Need for Assessment generated from: MD Order Initial or Follow up Assessment Current Diagnosis Respiratory Failure Other Pertinent Diagnosis Dyspena, Amphetamine Abuse, Nictone Abuse Current Diet NPO Labs/Tests No recent labs Pertinent Medications Propofol at 19.05mL/hr Fentanyl drip at 7.94mL/hr Solumedrol 40mg Height 5 ft 9 in Weight 79.379 kg [place] Body Weight (kg) 72.72 BMI 25.8 Weight change and time frame 8.6% wt gain in 3 months Weight Status Overweight Subjective/Other Information MD consult for TF. Pt intubated and sedated. Propofol providing 503kcal/day . TOMMY diet hx at this time Percent of energy/protein needs met: 0%/0% Burn Absent Trauma Absent GI Symptoms None Current % PO Negligible Minimum of two criteria No #1 Nutrition Diagnosis Inadequate oral intake Etiology RF As Evidenced by Signs and Symptoms pt on vent and cannot consume food PO Is patient on ventilator? Yes Is Patient Ambulatory and/or Out of Bed No REE-([facility]-confined to bed) 1388.481 Calculation Used for Recommendations Kcal/kg Additional Notes Pro Needs: 95-159g/day (1.2-2g /kg BW/day) Fluid needs: 1mL/kcal Nutrition Intervention Change Diet Order: Start TF Nutrition Support: Vital AF 1.2 at 55mL/hr Kcal 1,584 Protein (gm) 99 Fluid (mL) 1,054 Goal #1 TF initiation/tolerance Goal #2 Pt will meet at least 75% of kcal/PRO needs via TF Anticipated Discharge Needs: TOMMY at this time Follow-Up By: 05/01/22 Additional Comments F/U TF tolerance/initiation
[2022-04-30] MEDS ORDERED: QUEtiapine 100 MG TAB PO STA (17:09)
[2022-04-30] MEDS: QUEtiapine 100 MG TAB PO SCH (21:52)
[2022-04-30] MEDS: SENNOSIDES/DOCUSATE SODIUM 8.6/50 MG TAB FEEDTUBE SCH (21:52)
[2022-05-01] MEDS: fentaNYL DRIP Premix 2,000 MCG/100 ML BAG IV SCH ×2 (01:09→07:53)
[2022-05-01] MEDS: IPRATROPIUM/ALBUTEROL SULFATE 3 ML AMPUL.NEB IH SCH ×4 (01:55→20:39)
[2022-05-01 05:27] LABS: Hematocrit 33.6 % (35.5-45.6); Hemoglobin 11.1 gm/dl (11.8-15.2); Mean Corpuscular HGB Conc 33 % (32-34); Mean Corpuscular Volume 84 fl (84-94); Platelet Count 186 K/mm3 (140-440); Red Blood Count 4.02 M/mm3 (3.65-5.03); Red Cell Distribution Width 14.4 % (13.2-15.2)
--- NOTE | 2022-05-01 05:37 | XRay Report ---
CHEST 1 VIEW INDICATION / CLINICAL INFORMATION: follow up respiratory failure. COMPARISON: Chest x-ray 04/30/2022 FINDINGS: SUPPORT DEVICES: Stable, satisfactory device positioning. HEART / MEDIASTINUM: Heart size is within normal limits. Mediastinal contour demonstrates no signific ant abnormality. LUNGS / PLEURA: Lungs are clear for degree of inspiration and technique utilized. BONES: No significant osseous abnormality. ADDITIONAL FINDINGS: No significant additional findings. IMPRESSION: 1. No active cardiopulmonary disease. Signer Name: Moy Santos II, MD Signed: 05/01/2022 5:32 AM Workstation Name: [id number]
[2022-05-01 05:41] LABS: BUN/Creatinine Ratio 15; Blood Urea Nitrogen 12 mg/dL (9-20); Calcium 8.7 mg/dL (8.4-10.2); Hemolysis Index 3
[2022-05-01] MEDS: HEPARIN 5,000 UNIT/1 ML VIAL SUB-Q SCH ×3 (06:05→21:19)
[2022-05-01] MEDS: methylPREDNISolone Sod Succinate 40 MG/1 ML INJ IV SCH ×2 (06:05→21:18)
[2022-05-01] MEDS: ARFORMOTEROL 15 MCG/2 ML NEBU IH SCH ×2 (07:38→20:39)
[2022-05-01] MEDS: BUDESONIDE 0.5 MG/2 ML NEBU IH SCH ×2 (07:38→20:39)
[2022-05-01 07:46] LABS: ABG Base Excess 3.6 mmol/L (-2.0-3.0); ABG HCO3 27.8 mmol/L (20.0-26.0); ABG Methemoglobin 0.6 % (0.0-1.5); ABG Oxygen Saturation 95.2 % (95.0-99.0); ABG PCO2 40.3 mm Hg; ABG PH 7.456 pH Units (7.350-7.450); ABG PO2 60.9 mm Hg (80.0-90.0)
[2022-05-01] MEDS: ACETAMINOPHEN 325 MG/10.15 ML ORAL LIQD UNIT DOSE FEEDTUBE PRN ×3 (08:31→23:19)
[2022-05-01] MEDS: QUEtiapine 100 MG TAB PO SCH ×2 (09:31→21:18)
[2022-05-01] MEDS: FAMOTIDINE 20 MG TAB FEEDTUBE SCH (09:31)
[2022-05-01] MEDS: SENNOSIDES/DOCUSATE SODIUM 8.6/50 MG TAB FEEDTUBE SCH (09:31)
--- NOTE | 2022-05-01 09:42 | Electrocardiograph Report ---
[facility] Test Date: 2022-05-01 Test Time: 07:13:22 Pat Name: DEEPIKA KINCAID Department: Room: A262 1 Gender: M Grass Cutter: LAURENCE : 1990 Requested By: PAYTON VILLAGOMEZ Order Number: [id number] Reading MD: Ghulam Key Measurements Intervals [place] Rate: 108 P: 57 TX: 139 QRS: -67 QRSD: 84 T: 76 QT: 300 QTc: 402 Interpretive Statements Sinus tachycardia Left anterior fascicular block ST elev, probable normal early repol pattern Compared to ECG 04/28/2022 19:56:31 Left anterior fascicular block now present Left-axis deviation no longer present ST (T wave) deviation still present Electronically Signed On 05-01-2022 9:42:32 EDT by Ghulam Key
[2022-05-01] MEDS ORDERED: SCOPOLAMINE TRANSDERMAL PATCH 72 HR TD SCH (10:00)
--- NOTE | 2022-05-01 11:24 | Progress Note ---
Assessment and Plan Acute hypoxemic respiratory failure on mechanical ventilatory support Possible acute asthma exacerbation Tobacco use disorder Acute on Chronic Respiratory acidosis Oropharyngeal dysphagia Hypotension - hold all sedation - hold tube feeds - 2 hour SBT - continue scopolamine patch - continue Seroquel 150 mg p.o. bid - continue care as below otherwise; - prn precedex during SBT - continue daily SAT and SBT assessment as tolerated - continue to wean supplemental oxygen for target O2 sat's > 90% acutely - VAP bundle addressed - continue lung protective strategies - continue bronchodilators (FADI & LABA) - continue systemic steroids with slow taper - with pulmonary hygiene per RT - wean per pulmonary driven protocols otherwise - avoid nephrotoxins, renally dose all medications - AB's per ID rec's - prn analgesia per CPOT score- continue accuchecks with glycemic control per SSI (While critically ill target blood glucose of 140-180 mg/dL; avoid hypoglycemia) - sedation prn for target RASS 0 to -1 - Maintenance of sleep-wake cycle, avoid delirium - continue enteral nutritional support at goal rate as tolerated - G.I. & VTE prophylaxis - PT/OT/ROM exercises - continue mobility protocols for pressure ulcer prophylaxis - Monitor hemodynamics closely - continue other care per attending / other consultants - discharge planning ongoing concurrently COVID SPECIFIC INTERVENTIONS - repeat COVID-19 test result pending .... Re-evaluate in am & prn CONDITION: CRITICAL PROGNOSIS: GUARDED CODE STATUS: FULL CODE The high probability of a clinically significant, sudden or life-threatening deterioration of the [respiratory, cardiovascular, GI & neurologic] system(s) required my full and direct attention, intervention and personal management. The aggregate critical care time was [32] minutes without overlap. Time includes spent on; [x] Data Review and interpretation [x] Patient assessment and monitoring of vital signs [x] Documentation [x] Medication orders and management Subjective Date of service: 05/01/22 Principal diagnosis: AHRF on MVS; AE-Asthma; Tobacco abuse; Oropharyngeal dysphagia; Hypotension Interval history: Patient is seen today for: Acute hypoxemic respiratory failure on MVS; Acute asthma exacerbation; Tobacco use disorder; Acute on Chronic Respiratory acidosis; Oropharyngeal dysphagia; Hypotension Seen and examined at bedside; 24hour events reviewed; nursing and respiratory care staff consulted; no adverse overnight events reported to me; resting in bed; tolerating SBt better today; secretions better and less agitated; QTc better today; following commands and not agitated Objective Vital Signs - 12hr 04/30/22 04/30/22 04/30/22 23:30 23:45 23:51 Temperature Pulse Rate 92 H 92 H 92 H Pulse Rate [ Bilateral Throughout] Pulse Rate [ From Monitor] Respiratory 15 14 14 Rate Respiratory Rate [Bilateral Throughout] Blood Pressure 116/74 118/73 118/73 O2 Sat by Pulse 100 100 100 Oximetry 05/01/22 05/01/22 05/01/22 00:00 00:15 00:30 Temperature 97.9 F Pulse Rate 93 H 91 H 93 H Pulse Rate [ Bilateral Throughout] Pulse Rate [ 93 H From Monitor] Respiratory 15 12 13 Rate Respiratory Rate [Bilateral Throughout] Blood Pressure 128/77 117/81 124/82 O2 Sat by Pulse 100 100 Oximetry 05/01/22 05/01/22 05/01/22 00:45 01:00 01:15 Temperature Pulse Rate 93 H 93 H 93 H Pulse Rate [ Bilateral Throughout] Pulse Rate [ From Monitor] Respiratory 9 L 11 L 13 Rate Respiratory Rate [Bilateral Throughout] Blood Pressure 129/80 129/78 118/71 O2 Sat by Pulse Oximetry 05/01/22 05/01/22 05/01/22 01:30 01:45 01:55 Temperature Pulse Rate 94 H 94 H Pulse Rate [ 101 H Bilateral Throughout] Pulse Rate [ From Monitor] Respiratory 14 24 Rate Respiratory 24 Rate [Bilateral Throughout] Blood Pressure 132/80 124/72 O2 Sat by Pulse 98 Oximetry 05/01/22 05/01/22 05/01/22 02:00 02:15 02:30 Temperature Pulse Rate 97 H 98 H 102 H Pulse Rate [ Bilateral Throughout] Pulse Rate [ From Monitor] Respiratory 24 24 15 Rate Respiratory Rate [Bilateral Throughout] Blood Pressure 120/68 129/77 125/72 O2 Sat by Pulse 96 95 Oximetry 05/01/22 05/01/22 05/01/22 02:45 03:00 03:15 Temperature Pulse Rate 106 H 104 H 101 H Pulse Rate [ Bilateral Throughout] Pulse Rate [ From Monitor] Respiratory 16 17 14 Rate Respiratory Rate [Bilateral Throughout] Blood Pressure 120/73 119/74 127/78 O2 Sat by Pulse 94 95 94 Oximetry 05/01/22 05/01/22 05/01/22 03:30 03:45 04:00 Temperature 97.6 F Pulse Rate 102 H 102 H 96 H Pulse Rate [ Bilateral Throughout] Pulse Rate [ 96 H From Monitor] Respiratory 11 L 16 14 Rate Respiratory Rate [Bilateral Throughout] Blood Pressure 121/69 128/69 124/75 O2 Sat by Pulse 94 95 Oximetry 05/01/22 05/01/22 05/01/22 04:15 04:30 04:39 Temperature Pulse Rate 103 H 101 H 97 H Pulse Rate [ Bilateral Throughout] Pulse Rate [ From Monitor] Respiratory 9 L 16 Rate Respiratory Rate [Bilateral Throughout] Blood Pressure 114/63 113/59 121/59 O2 Sat by Pulse 95 95 97 Oximetry 05/01/22 05/01/22 05/01/22 04:45 05:00 05:15 Temperature Pulse Rate 99 H 99 H 128 H Pulse Rate [ Bilateral Throughout] Pulse Rate [ From Monitor] Respiratory 15 13 37 H Rate Respiratory Rate [Bilateral Throughout] Blood Pressure 121/59 123/75 123/75 O2 Sat by Pulse 95 98 Oximetry 05/01/22 05/01/22 05/01/22 05:30 05:45 06:00 Temperature Pulse Rate 109 H 105 H 103 H Pulse Rate [ Bilateral Throughout] Pulse Rate [ From Monitor] Respiratory 20 18 14 Rate Respiratory Rate [Bilateral Throughout] Blood Pressure 129/89 115/88 135/77 O2 Sat by Pulse 97 99 98 Oximetry 05/01/22 05/01/22 05/01/22 06:15 06:31 06:45 Temperature Pulse Rate 103 H 109 H 115 H Pulse Rate [ Bilateral Throughout] Pulse Rate [ From Monitor] Respiratory 12 13 22 Rate Respiratory Rate [Bilateral Throughout] Blood Pressure 131/76 124/83 122/86 O2 Sat by Pulse 99 100 100 Oximetry 05/01/22 05/01/22 05/01/22 07:00 07:12 07:15 Temperature 101.3 F H Pulse Rate 104 H 109 H Pulse Rate [ Bilateral Throughout] Pulse Rate [ From Monitor] Respiratory 22 19 Rate Respiratory Rate [Bilateral Throughout] Blood Pressure 135/99 142/87 O2 Sat by Pulse 92 100 Oximetry 05/01/22 05/01/22 05/01/22 07:30 07:38 07:45 Temperature Pulse Rate 110 H 108 H 110 H Pulse Rate [ 110 H Bilateral Throughout] Pulse Rate [ From Monitor] Respiratory 19 18 Rate Respiratory 28 H Rate [Bilateral Throughout] Blood Pressure 134/83 134/83 120/78 O2 Sat by Pulse 100 100 Oximetry 05/01/22 05/01/22 05/01/22 08:00 08:15 08:30 Temperature Pulse Rate 116 H 109 H 108 H Pulse Rate [ Bilateral Throughout] Pulse Rate [ 115 H From Monitor] Respiratory 19 17 16 Rate Respiratory Rate [Bilateral Throughout] Blood Pressure 114/84 106/76 117/69 O2 Sat by Pulse 99 100 99 Oximetry 05/01/22 05/01/22 05/01/22 08:45 09:00 09:15 Temperature Pulse Rate 110 H 109 H 105 H Pulse Rate [ Bilateral Throughout] Pulse Rate [ From Monitor] Respiratory 24 17 16 Rate Respiratory Rate [Bilateral Throughout] Blood Pressure 122/64 127/59 123/60 O2 Sat by Pulse 97 97 97 Oximetry 05/01/22 05/01/22 05/01/22 09:30 09:42 09:45 Temperature 101.4 F H Pulse Rate 118 H 115 H Pulse Rate [ Bilateral Throughout] Pulse Rate [ From Monitor] Respiratory 17 16 Rate Respiratory Rate [Bilateral Throughout] Blood Pressure 137/72 149/62 O2 Sat by Pulse 94 94 Oximetry 05/01/22 05/01/22 10:00 11:20 Temperature Pulse Rate 98 H 117 H Pulse Rate [ Bilateral Throughout] Pulse Rate [ From Monitor] Respiratory 17 Rate Respiratory Rate [Bilateral Throughout] Blood Pressure 124/67 149/62 O2 Sat by Pulse 100 97 Oximetry Constitutional: no acute distress Eyes: non-icteric ENT: oropharynx moist Neck: supple, no lymphadenopathy, no JVD Effort: mildly labored Ascultation: Bilateral: rhonchi (scant) Percussion: Bilateral: not dull Cardiovascular: regular rate and rhythm Gastrointestinal: normoactive bowel sounds, soft, non-tender, non-distended Integumentary: normal Extremities: no cyanosis, no edema, pulses normal, no ischemia or petechiae Neurologic: non-focal exam, pupils equal and round, CN II-XII normal, motor strength normal and Psychiatric: mood appropriate, affect normal CBC and BMP: 05/01/22 04:52 05/01/22 04:52 ABG, PT/INR, D-dimer: ABG ABG pH 7.456 pH Units (7.350-7.450) H 05/01/22 07:25 ABG pCO2 40.3 mm Hg 05/01/22 07:25 ABG pO2 60.9 mm Hg (80.0-90.0) L 05/01/22 07:25 ABG O2 Saturation 95.2 % (95.0-99.0) 05/01/22 07:25 PT/INR, D-dimer D-Dimer 172.65 ng/mlDDU (0-234) 04/28/22 20:37 Abnormal lab findings: Abnormal Labs 04/28/22 04/28/22 04/28/22 20:23 20:37 20:37 RBC 5.18 H Hgb Hct MCH 27 L [place] % (Auto) Lymph # (Auto) Seg Neutrophils % 73.7 H ABG pH 7.343 L ABG pO2 110.7 H ABG HCO3 ABG O2 Saturation ABG Base Excess -2.5 L ABG Hemoglobin 13.4 L Oxyhemoglobin BUN 5 L Glucose 109 H POC Glucose Lactate Dehydrogenase C-Reactive Protein Total Protein 8.8 H Triglycerides Ur Specific Story Urine WBC (Auto) 04/29/22 04/29/22 04/29/22 00:30 08:30 09:33 RBC Hgb Hct MCH [place] % (Auto) Lymph # (Auto) Seg Neutrophils % ABG pH 7.213 L 7.229 L ABG pO2 75.5 L 435.3 H ABG HCO3 28.1 H ABG O2 Saturation 94.1 L 99.6 H ABG Base Excess -4.0 L ABG Hemoglobin 12.9 L Oxyhemoglobin 92.5 L BUN Glucose POC Glucose Lactate Dehydrogenase 316 H C-Reactive Protein 1.50 H Total Protein Triglycerides Ur Specific Story Urine WBC (Auto) 04/29/22 04/29/22 04/29/22 10:36 11:28 21:09 RBC Hgb Hct MCH [place] % (Auto) Lymph # (Auto) Seg Neutrophils % ABG pH 7.341 L ABG pO2 104.8 H ABG HCO3 27.1 H ABG O2 Saturation ABG Base Excess ABG Hemoglobin 12.8 L Oxyhemoglobin BUN Glucose POC Glucose 112 H Lactate Dehydrogenase C-Reactive Protein Total Protein Triglycerides Ur Specific Story 1.046 H Urine WBC (Auto) 66.0 H 04/30/22 04/30/22 04/30/22 00:19 04:44 04:44 RBC Hgb 11.2 L Hct 34.5 L D MCH 27 L [place] % (Auto) 9.1 H Lymph # (Auto) 1.1 L Seg Neutrophils % 74.3 H ABG pH ABG pO2 ABG HCO3 ABG O2 Saturation ABG Base Excess ABG Hemoglobin Oxyhemoglobin BUN Glucose 138 H POC Glucose 130 H Lactate Dehydrogenase C-Reactive Protein Total Protein Triglycerides 214 H Ur Specific Story Urine WBC (Auto) 04/30/22 04/30/22 05/01/22 10:52 11:16 04:52 RBC Hgb 11.1 L Hct 33.6 L MCH [place] % (Auto) Lymph # (Auto) Seg Neutrophils % ABG pH 7.345 L ABG pO2 111.2 H ABG HCO3 28.2 H ABG O2 Saturation ABG Base Excess ABG Hemoglobin 12.2 L Oxyhemoglobin BUN Glucose POC Glucose 135 H Lactate Dehydrogenase C-Reactive Protein Total Protein Triglycerides Ur Specific Story Urine WBC (Auto) 05/01/22 05/01/22 04:52 07:25 RBC Hgb Hct MCH [place] % (Auto) Lymph # (Auto) Seg Neutrophils % ABG pH 7.456 H ABG pO2 60.9 L ABG HCO3 27.8 H ABG O2 Saturation ABG Base Excess 3.6 H ABG Hemoglobin 12.9 L Oxyhemoglobin 93.7 L BUN Glucose 132 H POC Glucose Lactate Dehydrogenase C-Reactive Protein Total Protein Triglycerides Ur Specific Story Urine WBC (Auto) Allied health notes reviewed: nursing
[2022-05-01 13:42] LABS: ABG Base Excess 5.2 mmol/L (-2.0-3.0); ABG HCO3 29.1 mmol/L (20.0-26.0); ABG Methemoglobin 0.5 % (0.0-1.5); ABG Oxygen Saturation 97.2 % (95.0-99.0); ABG PCO2 39.7 mm Hg; ABG PH 7.482 pH Units (7.350-7.450)
--- NOTE | 2022-05-01 17:25 | Progress Note ---
Assessment and Plan Assessment and plan: This is a 31-year-old male with current nicotine abuse admitted with acute hypoxic respiratory failure s/p intubation with a UDS positive for amphetamine Neuro: Polysubstance abuse (nicotine, amphetamines, THC) -UDS positive for amphetamine, THC and opiates -Sedated with propofol and fentanyl this AM -Added Precedex drip if needed, CCM to add Seroquel -RASS goal 0 to -1 -Reorientation as needed -Maintain sleep-wake cycle -As needed analgesia Cardiac: NAD -Blood pressure monitoring per protocol -Echocardiogram shows LVEF greater than 65%, mild concentric LVH Respiratory: Acute hypoxic respiratory failure -CCM consulted, appreciate recommendations -Intubated on 04/29 with 7.50 ETT at 22 the lips -A.m. vent settings: CPAP 07/12 -See RT notes for titration -Eventually extubated to RA -DuoNeb, Brovana, Solu-Medrol -A.m. ABG and CXR noted -VAP bundle -SPO2 monitoring GI: NAD -24 hours +1507 mL -PPI -NTR consulted for tube feedings -Passed BS swallow eval -will start on regular diet -BR: Senokot : NAD -Monitor intake and output -Renally dose medications -Avoid nephrotoxic medications -Trend BMP ID: COVID-19 PUI -Presented with tachycardia, acute respiratory failure -Rapid COVID-19 negative, influenza A & B negative -Contact and droplet precautions -Procal 0.06 -f/u blood culture -04/29 BC x2 NGTD -04/29 UC NGTD -COVID rapid (-) -COVID 19 PCR pending -Now having fevers -recultured -Monitor WBC and temperature curve Endo: NAD -Avoid hypoglycemia -SSI -Accu-Cheks q. 6 Heme: NAD -Trend CBC -Transfuse hemoglobin less than 7 -SCDs to BLE while in bed The high probability of a clinically significant, sudden or life threatening deterioration of the [multiple] system(s) required my full and direct attention, intervention and personal management. The aggregate critical care time was [60] minutes. This time is in addition to time spent performing reported procedures but includes the following: [x] Data Review and interpretation [x] Patient assessment and monitoring of vital signs [x] Documentation [x] Medication orders and management Disposition Plan: icu Total Time Spent with Patient (Minutes): 60 History Interval history: This 31-year-old male with current nicotine abuse presented to the emergency department on 04/29 with complaints of shortness of breath and cough ongoing for the past 2 days and according to ED staff patient stated he had chest discomfort with cough and indicated that an at home COVID test was negative. While in the emergency department patient was found to be in acute respiratory distress with wheezing, tachypnea and tachycardia and was intubated. Work-up in the emergency department included lab work and CXR which was unremarkable, CTA chest showed no pulmonary embolism without acute findings and UDS was positive for marijuana and amphetamines. Patient was admitted to the hospitalist service with consults to [facility] for acute hypoxic respiratory failure. Hospital course to date: 04/29: Intubated/sedated. s/p reintubation, patient bit through ETT. Max on propofol and fentanyl, now with hypotension and tachycardia. Rapid COVID negative. Patient is afebrile with no leukocytosis. Wean sedatio for RASS goal 0 to -1, IVF bolus administered. Probably related to sedation but given unclear etiology for acute respiratory failure and now with hypotension, will also r/o infectious process. Orders placed for COVID and FLU PCR, UA, blood culture, and procal. Hold off on IV Abx for now, pending results. 2D echo pending. [facility] is also following 04/30: Patient was on CPAP trial this morning and ABG was acceptable. Patient was about to be extubated however he became severely agitated, tachypneic, tachycardic and had copious coughing. Patient was sedated with plans to possibly extubate tomorrow morning. COVID-19 PCR pending. 05/01: Patient tried on CPAP and was eventually able to be extubated, Seroquel 150 mg twice daily started by [facility]. Passed bedside swallow evaluation. COVID-19 PCR still pending. Patient noted to have fevers throughout the day and blood cultures ordered x1. We will continue to monitor. Hospitalist Physical - Constitutional Vitals: Temp Pulse Resp BP Pulse Ox 103.4 F H 103 H 28 H 140/89 95 05/01/22 16:00 05/01/22 17:00 05/01/22 17:00 05/01/22 17:00 05/01/22 17:00 General appearance: Present: no acute distress, other (Intubated and sedated) - EENT Eyes: Present: PERRL, EOM intact ENT: hearing intact - Neck Neck: Present: supple, normal ROM - Respiratory Respiratory effort: normal Respiratory: bilateral: CTA - Cardiovascular Rhythm: regular Heart Sounds: Present: S1 & S2. Absent: systolic murmur, diastolic murmur - Extremities Extremities: no ischemia, pulses intact, pulses symmetrical, No edema, normal temperature, normal color, Full ROM Peripheral Pulses: within normal limits - Abdominal General gastrointestinal: soft, non-tender, non-distended, normal bowel sounds - Integumentary Integumentary: Present: warm, dry - Psychiatric Psychiatric: cooperative - Neurologic Neurologic: CNII-XII intact, no focal deficits, moves all extremities - Allied Health Allied health notes reviewed: nursing, RT, social work HEART Score - HEART Score Troponin: Troponin T < 0.010 ng/mL (0.00-0.029) 04/28/22 20:37 Results - Labs CBC & Chem 7: 05/01/22 04:52 05/01/22 04:52 Labs: Laboratory Last Values WBC 4.6 K/mm3 (4.5-11.0) 05/01/22 04:52 RBC 4.02 M/mm3 (3.65-5.03) 05/01/22 04:52 Hgb 11.1 gm/dl (11.8-15.2) L 05/01/22 04:52 Hct 33.6 % (35.5-45.6) L 05/01/22 04:52 MCV 84 fl (84-94) 05/01/22 04:52 MCH 28 pg (28-32) 05/01/22 04:52 MCHC 33 % (32-34) 05/01/22 04:52 RDW 14.4 % (13.2-15.2) 05/01/22 04:52 Plt Count 186 K/mm3 (140-440) 05/01/22 04:52 Lymph % (Auto) 16.5 % (13.4-35.0) 04/30/22 04:44 Garrard % (Auto) 9.1 % (0.0-7.3) H 04/30/22 04:44 Eos % (Auto) 0.0 % (0.0-4.3) 04/30/22 04:44 Baso % (Auto) 0.1 % (0.0-1.8) 04/30/22 04:44 Lymph # (Auto) 1.1 K/mm3 (1.2-5.4) L 04/30/22 04:44 Garrard # (Auto) 0.6 K/mm3 (0.0-0.8) 04/30/22 04:44 Eos # (Auto) 0.0 K/mm3 (0.0-0.4) 04/30/22 04:44 Baso # (Auto) 0.0 K/mm3 (0.0-0.1) 04/30/22 04:44 Seg Neutrophils % 74.3 % (40.0-70.0) H 04/30/22 04:44 Seg Neutrophils # 4.8 K/mm3 (1.8-7.7) 04/30/22 04:44 D-Dimer 172.65 ng/mlDDU (0-234) 04/28/22 20:37 ABG pH 7.482 pH Units (7.350-7.450) H 05/01/22 13:20 ABG pCO2 39.7 mm Hg 05/01/22 13:20 ABG pO2 61.0 mm Hg (80.0-90.0) L 05/01/22 13:20 ABG HCO3 29.1 mmol/L (20.0-26.0) H 05/01/22 13:20 ABG O2 Saturation 97.2 % (95.0-99.0) 05/01/22 13:20 ABG O2 Content 10.4 (0.0-44) 05/01/22 13:20 ABG Base Excess 5.2 mmol/L (-2.0-3.0) H 05/01/22 13:20 ABG Hemoglobin 7.7 gm/dl (14.0-18.0) L 05/01/22 13:20 ABG Carboxyhemoglobin 1.2 % (0.0-5.0) 05/01/22 13:20 ABG Methemoglobin 0.5 % (0.0-1.5) 05/01/22 13:20 Oxyhemoglobin 95.5 % (95.0-99.0) 05/01/22 13:20 FiO2 35 % 05/01/22 13:20 Sodium 137 mmol/L (137-145) 05/01/22 04:52 Potassium 4.1 mmol/L (3.6-5.0) 05/01/22 04:52 Chloride 101.6 mmol/L (98-107) 05/01/22 04:52 Carbon Dioxide 27 mmol/L (22-30) 05/01/22 04:52 Anion Gap 13 mmol/L 05/01/22 04:52 BUN 12 mg/dL (9-20) 05/01/22 04:52 Creatinine 0.8 mg/dL (0.8-1.3) 05/01/22 04:52 Estimated GFR > 60 ml/min 05/01/22 04:52 BUN/Creatinine Ratio 15 % 05/01/22 04:52 Glucose 132 mg/dL (75-100) H 05/01/22 04:52 POC Glucose 140 mg/dL (70-105) H 05/01/22 11:28 Lactic Acid 1.50 mmol/L (0.7-2.0) 04/30/22 04:44 Calcium 8.7 mg/dL (8.4-10.2) 05/01/22 04:52 Phosphorus 2.90 mg/dL (2.5-4.5) 05/01/22 04:52 Magnesium 2.20 mg/dL (1.7-2.3) 05/01/22 04:52 Ferritin 189.3 ng/mL (30.0-300.0) 04/29/22 09:33 Total Bilirubin 0.60 mg/dL (0.1-1.2) 04/28/22 20:37 AST 25 units/L (5-40) 04/28/22 20:37 ALT 20 units/L (7-56) 04/28/22 20:37 Alkaline Phosphatase 73 units/L (35-129) 04/28/22 20:37 Lactate Dehydrogenase 316 units/L (91-180) H 04/29/22 09:33 Troponin T < 0.010 ng/mL (0.00-0.029) 04/28/22 20:37 C-Reactive Protein 1.50 mg/dL (0.00-1.30) H 04/29/22 09:33 NT-Pro-B Natriuret Pep 30.06 pg/mL (0-450) 04/28/22 20:37 Total Protein 8.8 g/dL (6.3-8.2) H 04/28/22 20:37 Albumin 4.5 g/dL (3.9-5) 04/28/22 20:37 Albumin/Globulin Ratio 1.0 % 04/28/22 20:37 Triglycerides 214 mg/dL (2-149) H 04/30/22 04:44 Procalcitonin 0.06 ng/mL (<0.15) 04/30/22 04:44 Urine Color Estela (Yellow) 04/29/22 10:36 Urine Turbidity Cloudy (Clear) 04/29/22 10:36 Urine pH 5.0 (5.0-7.0) 04/29/22 10:36 Ur Specific Robbins 1.046 (1.003-1.030) H 04/29/22 10:36 Urine Protein 100 mg/dl mg/dL (Negative) 04/29/22 10:36 Urine Glucose (UA) Neg mg/dL (Negative) 04/29/22 10:36 Urine Ketones Neg mg/dL (Negative) 04/29/22 10:36 Urine Blood Lg (Negative) 04/29/22 10:36 Urine Nitrite Neg (Negative) 04/29/22 10:36 Urine Bilirubin Neg (Negative) 04/29/22 10:36 Urine Urobilinogen < 2.0 mg/dL (<2.0) 04/29/22 10:36 Ur Leukocyte Esterase Mod (Negative) 04/29/22 10:36 Urine WBC (Auto) 66.0 /HPF (0.0-6.0) H 04/29/22 10:36 Urine RBC (Auto) > 182.0 /HPF (0.0-6.0) 04/29/22 10:36 U Epithel Cells (Auto) 2.0 /HPF (0-13.0) 04/29/22 10:36 Urine Bacteria (Auto) 1+ /HPF (Negative) 04/29/22 10:36 Hyaline Casts 107 /LPF 04/29/22 10:36 Urine Opiates Screen Presumptive positive 04/28/22 22:25 Urine Methadone Screen Presumptive negative 04/28/22 22:25 Ur Barbiturates Screen Presumptive negative 04/28/22 22:25 Ur Phencyclidine Scrn Presumptive negative 04/28/22 22:25 Ur Amphetamines Screen Presumptive positive 04/28/22 22:25 U Benzodiazepines Scrn Presumptive negative 04/28/22 22:25 Urine Cocaine Screen Presumptive negative 04/28/22 22:25 U Marijuana (THC) Screen Presumptive positive 04/28/22 22:25 Drugs of Abuse Note Disclamer 04/28/22 22:25 SARS-CoV-2 (PCR) Negative (Negative) 04/29/22 08:35 Influenza A (RT-PCR) Negative (Negative) 04/30/22 09:35 Influenza B (RT-PCR) Negative (Negative) 04/30/22 09:35 Microbiology: Microbiology 04/29/22 13:21 Peripheral/Venous Blood Culture - Preliminary NO GROWTH AFTER 48 HOURS 04/29/22 13:21 Peripheral/Venous Blood Culture - Preliminary NO GROWTH AFTER 48 HOURS 04/29/22 00:30 Tracheal Aspirate Sputum Culture - Preliminary 04/29/22 10:36 Urine,Clean Catch Urine Culture - Preliminary NO GROWTH AFTER 24 HOURS Muhammad/IV: Voiding Method Urinal Active Medications - Current Medications Current Medications: Generic Name Dose Route Start Last Admin Trade Name Freq PRN Reason Stop Dose Admin Acetaminophen 650 mg 05/01/22 09:00 05/01/22 16:17 Acetaminophen 325 Mg/10.15 Ml Oral Liqd Unit Dose FEEDTUBE 650 mg Q6H PRN Administration Pain MILD(1-3)/Fever >100.5/RUSHING Albuterol/Ipratropium 1 ampul 04/29/22 02:00 05/01/22 14:05 Ipratropium/Albuterol Sulfate 3 Ml Ampul.Neb IH 1 ampul Q6HRT ARTURO Administration Arformoterol Tartrate 15 mcg 04/29/22 12:15 05/01/22 07:38 Arformoterol 15 Mcg/2 Ml Nebu IH 15 mcg Q12HRT ARTURO Administration Budesonide 0.5 mg 04/29/22 20:00 05/01/22 07:38 Budesonide 0.5 Mg/2 Ml Nebu IH 0.5 mg Q12HRT ARTURO Administration Famotidine 20 mg 05/01/22 22:00 Famotidine 20 Mg Tab PO BID ARTURO Heparin Sodium (Porcine) 5,000 unit 04/29/22 06:00 05/01/22 14:19 Heparin 5,000 Unit/1 Ml Vial SUB-Q 5,000 unit Q8HR ARTURO Administration Hydrophilic Ointment 1 applic 04/30/22 13:53 Lip Therapy Vaseline TP Q2HR PRN Dry Lips NORepinephrine/NS 8 MG-250 ML 8 mg in 250 mls @ 3.75 mls/hr 04/29/22 11:00 Norepinephrine/Ns 8 Mg-250 Ml (Double Conc) IV TITRATE ARTURO Protocol 2 MCG/MIN Dexmedetomidine HCl 400 mcg/ 104 mls @ 4.128 mls/hr 04/30/22 10:00 Sodium Chloride IV TITRATE ARTURO Protocol 0.2 MCG/KG/HR Methylprednisolone Sodium Succinate 40 mg 05/01/22 22:00 Methylprednisolone Sod Succinate 40 Mg/1 Ml Inj IV Q12HR ARTURO Multi-Ingred Cream/Lotion/Oil/Oint 1 applic 04/30/22 13:53 Mineral Oil/Petrolatum, White Ophth Oint 3.5 Gm OU Q4HR PRN Dry Eye(s) Ondansetron HCl 4 mg 04/29/22 00:26 Ondansetron 4 Mg/2 Ml Inj IV Q8H PRN Nausea And Vomiting Quetiapine Fumarate 150 mg 04/30/22 22:00 05/01/22 09:31 Quetiapine 100 Mg Tab PO 150 mg BID ARTURO Administration Scopolamine 1 each 05/01/22 10:00 05/01/22 09:31 Scopolamine Transdermal Patch 72 Hr TD 1 each Q3D ARTURO Administration Senna/Docusate Sodium 1 tab 05/01/22 22:00 Sennosides/Docusate Sodium 8.6/50 Mg Tab PO QHS ARTURO Sodium Chloride 10 ml 04/29/22 10:00 05/01/22 09:32 Sodium Chloride 0.9% 10 Ml Flush Syringe IV 10 ml BID ARTURO Administration Sodium Chloride 10 ml 04/29/22 00:26 Sodium Chloride 0.9% 10 Ml Flush Syringe IV PRN PRN LINE FLUSH Nutrition/Malnutrition Assess - Dietary Evaluation Nutrition/Malnutrition Findings: Nutrition Notes Start: 04/29/22 14:24 Freq: Status: Active Protocol: Document 05/01/22 09:34 TANIA (Rec: 05/01/22 09:57 TANIA [id number]) Nutrition Notes Initial or Follow up Brief Note Current Diagnosis Respiratory Failure Other Pertinent Diagnosis Substance Abuse, COVID-19 pui. Current Diet TF-Vital AF 1.2 Bhupinder @ 55 ml/hr (since D 04/29). Labs/Tests 05/01: Glu 132. Pertinent Medications 05/01: Propofol @ 16.67 ml/hr (440 Kcal), others nutritionally unremarkable. Height 5 ft 9 in Weight 79.379 kg [place] Body Weight (kg) 72.72 BMI 25.8 Intake Prior to Admission Good Weight change and time frame Pt denies having loss body weight [employer]. No body weight change reported in 2 days. Weight Status Overweight Subjective/Other Information RD consult for routine F/U on TF tolerance/continuation. TF continues as prescribed, and well tolerated, according to RN notes. Pt remains on Mechanical Veintilation, O2 saturation @ 99%, according to Physical Assessment History notes. Percent of energy/protein needs met: Prescribed TF-Vital AF 1.2 Bhupinder @ 55 ml/hr provides for energy/protein needs (1,585 Kcal/99 g) during LOS, 76% Kcal; 100% AA. Including Propofol: 97% Kcal; 100% AA. #1 Nutrition Diagnosis Inadequate oral intake Diagnosis Progress(for reassessment Continues documentation) Is patient on ventilator? Yes Is Patient Ambulatory and/or Out of Bed No REE-([facility]-confined to bed) 4543.247 Calculation Used for Recommendations [facility] Additional Notes Protein: 1.2-2 g/Kg ABW; 95- 159 g/day. Fluids: 1 ml/Kcal, or as per MD. Nutrition Intervention Nutrition Support: Continue TF-Vital AF 1.2 Bhupinder @ 55 ml/hr. Flush: 175 ml water Q 4 hr, or as per MD. Kcal 1,585 Protein (gm) 99 Carbohydrates (gm) 146 Fat (gm) 71 Fluid (mL) 1,071 Fiber (gm) 7 % RDI: 76% Kcal; 100% AA. Goal #1 Provide at least 75% of energy /protein needs through Enteral Feeding during LOS. Follow-Up By: 05/08/22 Additional Comments Continue monitoring TF tolerance and BM.
[2022-05-01] MEDS: FAMOTIDINE 20 MG TAB PO SCH (21:18)
[2022-05-01] MEDS: SENNOSIDES/DOCUSATE SODIUM 8.6/50 MG TAB PO SCH (21:19)
[2022-05-02] MEDS: IPRATROPIUM/ALBUTEROL SULFATE 3 ML AMPUL.NEB IH SCH ×4 (03:29→20:01)
[2022-05-02 04:38] LABS: BUN/Creatinine Ratio 14; Blood Urea Nitrogen 11 mg/dL (9-20); Calcium 8.9 mg/dL (8.4-10.2); Hemolysis Index 7
[2022-05-02 04:43] LABS: Hematocrit 39.1 % (35.5-45.6); Hemoglobin 12.6 gm/dl (11.8-15.2); Red Blood Count 4.67 M/mm3 (3.65-5.03)
[2022-05-02 04:44] LABS: Mean Corpuscular HGB Conc 32 % (32-34); Mean Corpuscular Volume 84 fl (84-94); Platelet Count 213 K/mm3 (140-440); Red Cell Distribution Width 13.9 % (13.2-15.2)
[2022-05-02] MEDS: HEPARIN 5,000 UNIT/1 ML VIAL SUB-Q SCH ×3 (05:16→21:10)
[2022-05-02] MEDS: ACETAMINOPHEN 325 MG TAB PO PRN (08:42)
[2022-05-02] MEDS: BUDESONIDE 0.5 MG/2 ML NEBU IH SCH ×2 (08:51→20:01)
[2022-05-02] MEDS: QUEtiapine 100 MG TAB PO SCH (09:04)
[2022-05-02] MEDS: FAMOTIDINE 20 MG TAB PO SCH ×2 (09:12→21:07)
[2022-05-02] MEDS: methylPREDNISolone Sod Succinate 40 MG/1 ML INJ IV SCH ×2 (09:12→21:07)
[2022-05-02] MEDS: ARFORMOTEROL 15 MCG/2 ML NEBU IH SCH ×2 (10:07→20:08)
--- NOTE | 2022-05-02 14:36 | Progress Note ---
Assessment and Plan Assessment and plan: This is a 31-year-old male with current nicotine abuse admitted with acute hypoxic respiratory failure s/p intubation with a UDS positive for amphetamine Neuro: Polysubstance abuse (nicotine, amphetamines, THC) -UDS positive for amphetamine, THC and opiates -Reorientation as needed -Maintain sleep-wake cycle -As needed analgesia Cardiac: NAD -Blood pressure monitoring per protocol -Echocardiogram shows LVEF greater than 65%, mild concentric LVH Respiratory: Acute hypoxic respiratory failure -CCM consulted, appreciate recommendations -Intubated on 04/29 with 7.50 ETT at 22 the lips and extubated 05/01 -Wilbert Walton, Solu-Medrol -Pulmonary hygiene -SPO2 monitoring GI: NAD -24 hours -447 mL -PPI -Regular diet -BR: Senokot : NAD -Monitor intake and output -Renally dose medications -Avoid nephrotoxic medications -Trend BMP ID: COVID-19 PUI -Presented with tachycardia, acute respiratory failure -Rapid COVID-19 negative, influenza A & B negative -Contact and droplet precautions -Procal 0.06 -f/u blood culture -04/29 BC x2 NGTD, 05/01 BG x2 pending -04/29 UC NGTD -COVID rapid (-) -COVID 19 PCR pending -Monitor WBC and temperature curve Endo: NAD -Avoid hypoglycemia Heme: NAD -Trend CBC -Transfuse hemoglobin less than 7 -SCDs to BLE while in bed The high probability of a clinically significant, sudden or life threatening deterioration of the [multiple] system(s) required my full and direct attention, intervention and personal management. The aggregate critical care time was [60] minutes. This time is in addition to time spent performing reported procedures but includes the following: [x] Data Review and interpretation [x] Patient assessment and monitoring of vital signs [x] Documentation [x] Medication orders and management Disposition Plan: transfer to floor Total Time Spent with Patient (Minutes): 60 History Interval history: This 31-year-old male with current nicotine abuse presented to the emergency department on 04/29 with complaints of shortness of breath and cough ongoing for the past 2 days and according to ED staff patient stated he had chest discomfort with cough and indicated that an at home COVID test was negative. While in the emergency department patient was found to be in acute respiratory distress with wheezing, tachypnea and tachycardia and was intubated. Work-up in the emergency department included lab work and CXR which was unremarkable, CTA chest showed no pulmonary embolism without acute findings and UDS was positive for marijuana and amphetamines. Patient was admitted to the hospitalist service with consults to [facility] for acute hypoxic respiratory failure. Hospital course to date: 04/29: Intubated/sedated. s/p reintubation, patient bit through ETT. Max on propofol and fentanyl, now with hypotension and tachycardia. Rapid COVID negative. Patient is afebrile with no leukocytosis. Wean sedatio for RASS goal 0 to -1, IVF bolus administered. Probably related to sedation but given unclear etiology for acute respiratory failure and now with hypotension, will also r/o infectious process. Orders placed for COVID and FLU PCR, UA, blood culture, and procal. Hold off on IV Abx for now, pending results. 2D echo pending. [facility] is also following 04/30: Patient was on CPAP trial this morning and ABG was acceptable. Patient was about to be extubated however he became severely agitated, tachypneic, tachycardic and had copious coughing. Patient was sedated with plans to possibly extubate tomorrow morning. COVID-19 PCR pending. 05/01: Patient tried on CPAP and was eventually able to be extubated, Seroquel 150 mg twice daily started by [facility]. Passed bedside swallow evaluation. COVID-19 PCR still pending. Patient noted to have fevers throughout the day and blood cultures ordered x1. We will continue to monitor. 05/02: Patient will be transferred to the floor. COVID-19 PCR still pending. No acute events overnight. Remains on nasal cannula. Dc seroquel Hospitalist Physical - Constitutional Vitals: Temp Pulse Resp BP Pulse Ox 99.2 F 92 H 21 120/84 95 05/02/22 12:00 05/02/22 14:00 05/02/22 14:00 05/02/22 14:00 05/02/22 14:00 General appearance: Present: no acute distress, other (Intubated and sedated) - EENT Eyes: Present: PERRL, EOM intact ENT: hearing intact, clear oral mucosa, dentition normal - Neck Neck: Present: normal ROM - Respiratory Respiratory effort: normal Respiratory: bilateral: CTA - Cardiovascular Rhythm: regular Heart Sounds: Present: S1 & S2. Absent: systolic murmur, diastolic murmur - Extremities Extremities: no ischemia, pulses intact, pulses symmetrical, No edema, normal temperature, normal color, Full ROM Peripheral Pulses: within normal limits - Abdominal General gastrointestinal: soft, non-tender, non-distended, normal bowel sounds - Integumentary Integumentary: Present: warm, dry - Psychiatric Psychiatric: cooperative - Neurologic Neurologic: CNII-XII intact, no focal deficits, moves all extremities - Allied Health Allied health notes reviewed: nursing, RT, social work HEART Score - HEART Score Troponin: Troponin T < 0.010 ng/mL (0.00-0.029) 04/28/22 20:37 Results - Labs CBC & Chem 7: 05/02/22 03:36 05/02/22 03:36 Labs: Laboratory Last Values WBC 5.2 K/mm3 (4.5-11.0) 05/02/22 03:36 RBC 4.67 M/mm3 (3.65-5.03) 05/02/22 03:36 Hgb 12.6 gm/dl (11.8-15.2) 05/02/22 03:36 Hct 39.1 % (35.5-45.6) 05/02/22 03:36 MCV 84 fl (84-94) 05/02/22 03:36 MCH 27 pg (28-32) L 05/02/22 03:36 MCHC 32 % (32-34) 05/02/22 03:36 RDW 13.9 % (13.2-15.2) 05/02/22 03:36 Plt Count 213 K/mm3 (140-440) 05/02/22 03:36 Lymph % (Auto) 16.5 % (13.4-35.0) 04/30/22 04:44 [place] % (Auto) 9.1 % (0.0-7.3) H 04/30/22 04:44 Eos % (Auto) 0.0 % (0.0-4.3) 04/30/22 04:44 Baso % (Auto) 0.1 % (0.0-1.8) 04/30/22 04:44 Lymph # (Auto) 1.1 K/mm3 (1.2-5.4) L 04/30/22 04:44 [place] # (Auto) 0.6 K/mm3 (0.0-0.8) 04/30/22 04:44 Eos # (Auto) 0.0 K/mm3 (0.0-0.4) 04/30/22 04:44 Baso # (Auto) 0.0 K/mm3 (0.0-0.1) 04/30/22 04:44 Seg Neutrophils % 74.3 % (40.0-70.0) H 04/30/22 04:44 Seg Neutrophils # 4.8 K/mm3 (1.8-7.7) 04/30/22 04:44 D-Dimer 172.65 ng/mlDDU (0-234) 04/28/22 20:37 ABG pH 7.482 pH Units (7.350-7.450) H 05/01/22 13:20 ABG pCO2 39.7 mm Hg 05/01/22 13:20 ABG pO2 61.0 mm Hg (80.0-90.0) L 05/01/22 13:20 ABG HCO3 29.1 mmol/L (20.0-26.0) H 05/01/22 13:20 ABG O2 Saturation 97.2 % (95.0-99.0) 05/01/22 13:20 ABG O2 Content 10.4 (0.0-44) 05/01/22 13:20 ABG Base Excess 5.2 mmol/L (-2.0-3.0) H 05/01/22 13:20 ABG Hemoglobin 7.7 gm/dl (14.0-18.0) L 05/01/22 13:20 ABG Carboxyhemoglobin 1.2 % (0.0-5.0) 05/01/22 13:20 ABG Methemoglobin 0.5 % (0.0-1.5) 05/01/22 13:20 Oxyhemoglobin 95.5 % (95.0-99.0) 05/01/22 13:20 FiO2 35 % 05/01/22 13:20 Sodium 137 mmol/L (137-145) 05/02/22 03:36 Potassium 4.0 mmol/L (3.6-5.0) 05/02/22 03:36 Chloride 98.5 mmol/L (98-107) 05/02/22 03:36 Carbon Dioxide 29 mmol/L (22-30) 05/02/22 03:36 Anion Gap 14 mmol/L 05/02/22 03:36 BUN 11 mg/dL (9-20) 05/02/22 03:36 Creatinine 0.8 mg/dL (0.8-1.3) 05/02/22 03:36 Estimated GFR > 60 ml/min 05/02/22 03:36 BUN/Creatinine Ratio 14 % 05/02/22 03:36 Glucose 119 mg/dL (75-100) H 05/02/22 03:36 POC Glucose 140 mg/dL (70-105) H 05/01/22 11:28 Lactic Acid 1.50 mmol/L (0.7-2.0) 04/30/22 04:44 Calcium 8.9 mg/dL (8.4-10.2) 05/02/22 03:36 Phosphorus 2.90 mg/dL (2.5-4.5) 05/01/22 04:52 Magnesium 2.20 mg/dL (1.7-2.3) 05/01/22 04:52 Ferritin 189.3 ng/mL (30.0-300.0) 04/29/22 09:33 Total Bilirubin 0.60 mg/dL (0.1-1.2) 04/28/22 20:37 AST 25 units/L (5-40) 04/28/22 20:37 ALT 20 units/L (7-56) 04/28/22 20:37 Alkaline Phosphatase 73 units/L (35-129) 04/28/22 20:37 Lactate Dehydrogenase 316 units/L (91-180) H 04/29/22 09:33 Troponin T < 0.010 ng/mL (0.00-0.029) 04/28/22 20:37 C-Reactive Protein 1.50 mg/dL (0.00-1.30) H 04/29/22 09:33 NT-Pro-B Natriuret Pep 30.06 pg/mL (0-450) 04/28/22 20:37 Total Protein 8.8 g/dL (6.3-8.2) H 04/28/22 20:37 Albumin 4.5 g/dL (3.9-5) 04/28/22 20:37 Albumin/Globulin Ratio 1.0 % 04/28/22 20:37 Triglycerides 214 mg/dL (2-149) H 04/30/22 04:44 Procalcitonin 0.06 ng/mL (<0.15) 04/30/22 04:44 Urine Color [place] (Yellow) 04/29/22 10:36 Urine Turbidity Cloudy (Clear) 04/29/22 10:36 Urine pH 5.0 (5.0-7.0) 04/29/22 10:36 Ur Specific [place] 1.046 (1.003-1.030) H 04/29/22 10:36 Urine Protein 100 mg/dl mg/dL (Negative) 04/29/22 10:36 Urine Glucose (UA) Neg mg/dL (Negative) 04/29/22 10:36 Urine Ketones Neg mg/dL (Negative) 04/29/22 10:36 Urine Blood Lg (Negative) 04/29/22 10:36 Urine Nitrite Neg (Negative) 04/29/22 10:36 Urine Bilirubin Neg (Negative) 04/29/22 10:36 Urine Urobilinogen < 2.0 mg/dL (<2.0) 04/29/22 10:36 Ur Leukocyte Esterase Mod (Negative) 04/29/22 10:36 Urine WBC (Auto) 66.0 /HPF (0.0-6.0) H 04/29/22 10:36 Urine RBC (Auto) > 182.0 /HPF (0.0-6.0) 04/29/22 10:36 U Epithel Cells (Auto) 2.0 /HPF (0-13.0) 04/29/22 10:36 Urine Bacteria (Auto) 1+ /HPF (Negative) 04/29/22 10:36 Hyaline Casts 107 /LPF 04/29/22 10:36 Urine Opiates Screen Presumptive positive 04/28/22 22:25 Urine Methadone Screen Presumptive negative 04/28/22 22:25 Ur Barbiturates Screen Presumptive negative 04/28/22 22:25 Ur Phencyclidine Scrn Presumptive negative 04/28/22 22:25 Ur Amphetamines Screen Presumptive positive 04/28/22 22:25 U Benzodiazepines Scrn Presumptive negative 04/28/22 22:25 Urine Cocaine Screen Presumptive negative 04/28/22 22:25 U Marijuana (THC) Screen Presumptive positive 04/28/22 22:25 Drugs of Abuse Note Disclamer 04/28/22 22:25 SARS-CoV-2 (PCR) Negative (Negative) 04/29/22 08:35 Influenza A (RT-PCR) Negative (Negative) 04/30/22 09:35 Influenza B (RT-PCR) Negative (Negative) 04/30/22 09:35 Microbiology: Microbiology 04/29/22 13:21 Peripheral/Venous Blood Culture - Preliminary NO GROWTH AFTER 72 HOURS 04/29/22 13:21 Peripheral/Venous Blood Culture - Preliminary NO GROWTH AFTER 72 HOURS 04/29/22 10:36 Urine,Clean Catch Urine Culture - Final NO GROWTH AFTER 48 HOURS 05/01/22 18:42 Peripheral/Venous Blood Culture - Preliminary Culture in Progress 05/01/22 18:42 Peripheral/Venous Blood Culture - Preliminary Culture in Progress Muhammad/IV: Voiding Method Urinal Active Medications - Current Medications Current Medications: Generic Name Dose Route Start Last Admin Trade Name Freq PRN Reason Stop Dose Admin Acetaminophen 650 mg 05/02/22 09:00 05/02/22 08:42 Acetaminophen 325 Mg Tab PO 650 mg Q6H PRN Administration Pain MILD(1-3)/Fever >100.5/RUSHING Albuterol/Ipratropium 1 ampul 04/29/22 02:00 05/02/22 08:51 Ipratropium/Albuterol Sulfate 3 Ml Ampul.Neb IH 1 ampul Q6HRT ARTURO Administration Arformoterol Tartrate 15 mcg 04/29/22 12:15 05/02/22 10:07 Arformoterol 15 Mcg/2 Ml Nebu IH Not Given Q12HRT ARTURO Budesonide 0.5 mg 04/29/22 20:00 05/02/22 08:51 Budesonide 0.5 Mg/2 Ml Nebu IH 0.5 mg Q12HRT ARTURO Administration Famotidine 20 mg 05/01/22 22:00 05/02/22 09:12 Famotidine 20 Mg Tab PO 20 mg BID ARTURO Administration Heparin Sodium (Porcine) 5,000 unit 04/29/22 06:00 05/02/22 14:03 Heparin 5,000 Unit/1 Ml Vial SUB-Q 5,000 unit Q8HR ARTURO Administration Hydrophilic Ointment 1 applic 04/30/22 13:53 Lip Therapy Vaseline TP Q2HR PRN Dry Lips Dexmedetomidine HCl 400 mcg/ 104 mls @ 4.128 mls/hr 04/30/22 10:00 Sodium Chloride IV TITRATE ARTURO Protocol 0.2 MCG/KG/HR Methylprednisolone Sodium Succinate 40 mg 05/01/22 22:00 05/02/22 09:12 Methylprednisolone Sod Succinate 40 Mg/1 Ml Inj IV 40 mg Q12HR ARTURO Administration Multi-Ingred Cream/Lotion/Oil/Oint 1 applic 04/30/22 13:53 Mineral Oil/Petrolatum, White Ophth Oint 3.5 Gm OU Q4HR PRN Dry Eye(s) Ondansetron HCl 4 mg 04/29/22 00:26 Ondansetron 4 Mg/2 Ml Inj IV Q8H PRN Nausea And Vomiting Quetiapine Fumarate 150 mg 04/30/22 22:00 05/02/22 09:04 Quetiapine 100 Mg Tab PO Not Given BID ARTURO Scopolamine 1 each 05/01/22 10:00 05/01/22 09:31 Scopolamine Transdermal Patch 72 Hr TD 1 each Q3D ARTURO Administration Senna/Docusate Sodium 1 tab 05/01/22 22:00 05/01/22 21:19 Sennosides/Docusate Sodium 8.6/50 Mg Tab PO 1 tab QHS ARTURO Administration Sodium Chloride 10 ml 04/29/22 10:00 05/02/22 09:13 Sodium Chloride 0.9% 10 Ml Flush Syringe IV 10 ml BID ARTURO Administration Sodium Chloride 10 ml 04/29/22 00:26 Sodium Chloride 0.9% 10 Ml Flush Syringe IV PRN PRN LINE FLUSH Nutrition/Malnutrition Assess - Dietary Evaluation Nutrition/Malnutrition Findings: Nutrition Notes Start: 04/29/22 14:24 Freq: Status: Active Protocol: Document 05/01/22 09:34 TANIA (Rec: 05/01/22 09:57 TANIA [email or web address]) Nutrition Notes Initial or Follow up Brief Note Current Diagnosis Respiratory Failure Other Pertinent Diagnosis Substance Abuse, COVID-19 pui. Current Diet TF-Vital AF 1.2 Bhupinder @ 55 ml/hr (since D 04/29). Labs/Tests 05/01: Glu 132. Pertinent Medications 05/01: Propofol @ 16.67 ml/hr (440 Kcal), others nutritionally unremarkable. 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 No body weight change reported in 2 days. Weight Status Overweight Subjective/Other Information RD consult for routine F/U on TF tolerance/continuation. TF continues as prescribed, and well tolerated, according to RN notes. Pt remains on Mechanical Veintilation, O2 saturation @ 99%, according to Physical Assessment History notes. Percent of energy/protein needs met: Prescribed TF-Vital AF 1.2 Bhupinder @ 55 ml/hr provides for energy/protein needs (1,585 Kcal/99 g) during LOS, 76% Kcal; 100% AA. Including Propofol: 97% Kcal; 100% AA. #1 Nutrition Diagnosis Inadequate oral intake Diagnosis Progress(for reassessment Continues documentation) Is patient on ventilator? Yes Is Patient Ambulatory and/or Out of Bed No REE-([facility]-confined to bed) 0515.838 Calculation Used for Recommendations [facility] Additional Notes Protein: 1.2-2 g/Kg ABW; 95- 159 g/day. Fluids: 1 ml/Kcal, or as per MD. Nutrition Intervention Nutrition Support: Continue TF-Vital AF 1.2 Bhupinder @ 55 ml/hr. Flush: 175 ml water Q 4 hr, or as per MD. Kcal 1,585 Protein (gm) 99 Carbohydrates (gm) 146 Fat (gm) 71 Fluid (mL) 1,071 Fiber (gm) 7 % RDI: 76% Kcal; 100% AA. Goal #1 Provide at least 75% of energy /protein needs through Enteral Feeding during LOS. Follow-Up By: 05/08/22 Additional Comments Continue monitoring TF tolerance and BM.
[2022-05-02] MEDS ORDERED: oxyCODONE /ACETAMINOPHEN 5-325MG TAB PO SCH (17:00)
--- NOTE | 2022-05-02 17:09 | Progress Note ---
Assessment and Plan Acute hypoxemic respiratory failure s/p mechanical ventilatory support Possible acute asthma exacerbation Tobacco use disorder Acute on Chronic Respiratory acidosis Extubated yesterday and he is doing well Titrate supplemental oxygen to keep SpO2 89-92% Bronchodilators Smoking cessation counselling Stop Seroquel Stable to transfer out of the ICU Subjective Date of service: 05/02/22 Principal diagnosis: AHRF on MVS; AE-Asthma; Tobacco abuse; Oropharyngeal dysphagia; Hypotension Interval history: Patient is seen today for: Acute hypoxemic respiratory failure s/p MVS; Acute asthma exacerbation; Tobacco use disorder; Acute on Chronic Respiratory acidosis; Oropharyngeal dysphagia; Hypotension Seen and examined at bedside; 24hour events reviewed; nursing and respiratory care staff consulted; no adverse overnight events reported to me; resting in bed on 2L NC. Denies any chest pain, no shortness of brath, no fevers, no chills, no nausea or vomiting. No diarrhea. Feels well Objective Vital Signs - 12hr 05/02/22 05/02/22 05/02/22 05:15 05:30 05:45 Temperature Pulse Rate 93 H 92 H 93 H Pulse Rate [ Bilateral Throughout] Pulse Rate [ From Monitor] Respiratory 21 25 H 24 Rate Respiratory Rate [Bilateral Throughout] Blood Pressure 135/86 126/82 125/84 O2 Sat by Pulse 95 97 96 Oximetry 05/02/22 05/02/22 05/02/22 06:00 06:15 06:30 Temperature Pulse Rate 93 H 91 H 92 H Pulse Rate [ Bilateral Throughout] Pulse Rate [ From Monitor] Respiratory 23 26 H 26 H Rate Respiratory Rate [Bilateral Throughout] Blood Pressure 129/88 133/95 132/89 O2 Sat by Pulse 99 98 97 Oximetry 05/02/22 05/02/22 05/02/22 06:45 07:00 07:15 Temperature Pulse Rate 98 H 94 H 91 H Pulse Rate [ Bilateral Throughout] Pulse Rate [ From Monitor] Respiratory 29 H 28 H 26 H Rate Respiratory Rate [Bilateral Throughout] Blood Pressure 127/92 134/92 135/92 O2 Sat by Pulse 94 Oximetry 05/02/22 05/02/22 05/02/22 07:30 07:45 08:00 Temperature 98.4 F Pulse Rate 90 92 H 96 H Pulse Rate [ Bilateral Throughout] Pulse Rate [ 96 H From Monitor] Respiratory 21 18 19 Rate Respiratory Rate [Bilateral Throughout] Blood Pressure 129/91 132/92 147/100 O2 Sat by Pulse 97 98 Oximetry 05/02/22 05/02/22 05/02/22 08:15 08:45 08:51 Temperature Pulse Rate 107 H 109 H Pulse Rate [ 107 H Bilateral Throughout] Pulse Rate [ From Monitor] Respiratory 26 H Rate Respiratory 22 Rate [Bilateral Throughout] Blood Pressure 142/91 142/91 O2 Sat by Pulse 94 Oximetry 05/02/22 05/02/22 05/02/22 09:00 09:16 09:30 Temperature Pulse Rate 100 H 93 H 107 H Pulse Rate [ Bilateral Throughout] Pulse Rate [ From Monitor] Respiratory 33 H 22 24 Rate Respiratory Rate [Bilateral Throughout] Blood Pressure 137/92 142/91 142/91 O2 Sat by Pulse 95 96 94 Oximetry 05/02/22 05/02/22 05/02/22 09:46 10:00 10:16 Temperature Pulse Rate 117 H 95 H 98 H Pulse Rate [ Bilateral Throughout] Pulse Rate [ From Monitor] Respiratory 26 H 27 H 27 H Rate Respiratory Rate [Bilateral Throughout] Blood Pressure 137/92 128/91 128/91 O2 Sat by Pulse 94 96 96 Oximetry 05/02/22 05/02/22 05/02/22 10:30 10:46 11:00 Temperature Pulse Rate 91 H 85 91 H Pulse Rate [ Bilateral Throughout] Pulse Rate [ From Monitor] Respiratory 27 H 24 24 Rate Respiratory Rate [Bilateral Throughout] Blood Pressure 128/91 128/91 135/92 O2 Sat by Pulse 95 97 93 Oximetry 05/02/22 05/02/22 05/02/22 11:16 11:30 11:46 Temperature Pulse Rate 99 H 93 H 87 Pulse Rate [ Bilateral Throughout] Pulse Rate [ From Monitor] Respiratory 28 H 24 27 H Rate Respiratory Rate [Bilateral Throughout] Blood Pressure 135/92 135/92 135/92 O2 Sat by Pulse 92 93 95 Oximetry 05/02/22 05/02/22 05/02/22 12:00 12:16 12:30 Temperature 99.2 F Pulse Rate 93 H 92 H 98 H Pulse Rate [ Bilateral Throughout] Pulse Rate [ 93 H From Monitor] Respiratory 26 H 25 H 26 H Rate Respiratory Rate [Bilateral Throughout] Blood Pressure 120/85 120/85 120/85 O2 Sat by Pulse 97 92 97 Oximetry 05/02/22 05/02/22 05/02/22 12:46 13:00 13:16 Temperature Pulse Rate 100 H 88 87 Pulse Rate [ Bilateral Throughout] Pulse Rate [ From Monitor] Respiratory 30 H 28 H 25 H Rate Respiratory Rate [Bilateral Throughout] Blood Pressure 120/85 114/87 114/87 O2 Sat by Pulse 94 94 96 Oximetry 05/02/22 05/02/22 05/02/22 13:30 13:46 14:00 Temperature Pulse Rate 96 H 90 92 H Pulse Rate [ Bilateral Throughout] Pulse Rate [ From Monitor] Respiratory 30 H 23 21 Rate Respiratory Rate [Bilateral Throughout] Blood Pressure 114/87 114/87 120/84 O2 Sat by Pulse 96 95 95 Oximetry 05/02/22 05/02/22 05/02/22 14:16 14:30 14:46 Temperature Pulse Rate 92 H 111 H 106 H Pulse Rate [ Bilateral Throughout] Pulse Rate [ From Monitor] Respiratory 24 32 H 28 H Rate Respiratory Rate [Bilateral Throughout] Blood Pressure 120/84 120/84 120/84 O2 Sat by Pulse 95 93 95 Oximetry 05/02/22 05/02/22 05/02/22 15:00 15:16 15:30 Temperature Pulse Rate 91 H 93 H 100 H Pulse Rate [ Bilateral Throughout] Pulse Rate [ From Monitor] Respiratory 26 H 30 H 27 H Rate Respiratory Rate [Bilateral Throughout] Blood Pressure 137/96 137/96 120/84 O2 Sat by Pulse 94 92 92 Oximetry 05/02/22 05/02/22 05/02/22 15:46 16:00 16:16 Temperature 98.5 F Pulse Rate 92 H 91 H 114 H Pulse Rate [ Bilateral Throughout] Pulse Rate [ 91 H From Monitor] Respiratory 20 18 26 H Rate Respiratory Rate [Bilateral Throughout] Blood Pressure 120/84 120/84 120/84 O2 Sat by Pulse 93 95 96 Oximetry 05/02/22 05/02/22 05/02/22 16:30 16:46 17:00 Temperature Pulse Rate 104 H 105 H 102 H Pulse Rate [ Bilateral Throughout] Pulse Rate [ From Monitor] Respiratory 19 22 26 H Rate Respiratory Rate [Bilateral Throughout] Blood Pressure 120/84 120/84 140/100 O2 Sat by Pulse 95 95 96 Oximetry Constitutional: no acute distress, alert Eyes: non-icteric ENT: oropharynx moist Neck: supple, no lymphadenopathy, no JVD Effort: normal Ascultation: Bilateral: clear, diminished breath sounds Cardiovascular: regular rate and rhythm, other (S1.S2) Gastrointestinal: normoactive bowel sounds, soft, non-tender, non-distended Integumentary: normal Extremities: no cyanosis, no edema, pulses normal, no ischemia or petechiae Neurologic: normal mental status, non-focal exam, pupils equal and round, CN II- XII normal, motor strength normal and Psychiatric: mood appropriate, affect normal CBC and BMP: 05/02/22 03:36 05/02/22 03:36 ABG, PT/INR, D-dimer: ABG ABG pH 7.482 pH Units (7.350-7.450) H 05/01/22 13:20 ABG pCO2 39.7 mm Hg 05/01/22 13:20 ABG pO2 61.0 mm Hg (80.0-90.0) L 05/01/22 13:20 ABG O2 Saturation 97.2 % (95.0-99.0) 05/01/22 13:20 PT/INR, D-dimer D-Dimer 172.65 ng/mlDDU (0-234) 04/28/22 20:37 Abnormal lab findings: Abnormal Labs 04/28/22 04/28/22 04/28/22 20:23 20:37 20:37 RBC 5.18 H Hgb Hct MCH 27 L [place] % (Auto) Lymph # (Auto) Seg Neutrophils % 73.7 H ABG pH 7.343 L ABG pO2 110.7 H ABG HCO3 ABG O2 Saturation ABG Base Excess -2.5 L ABG Hemoglobin 13.4 L Oxyhemoglobin BUN 5 L Glucose 109 H POC Glucose Lactate Dehydrogenase C-Reactive Protein Total Protein 8.8 H Triglycerides Ur Specific [place] Urine WBC (Auto) 04/29/22 04/29/22 04/29/22 00:30 08:30 09:33 RBC Hgb Hct MCH [place] % (Auto) Lymph # (Auto) Seg Neutrophils % ABG pH 7.213 L 7.229 L ABG pO2 75.5 L 435.3 H ABG HCO3 28.1 H ABG O2 Saturation 94.1 L 99.6 H ABG Base Excess -4.0 L ABG Hemoglobin 12.9 L Oxyhemoglobin 92.5 L BUN Glucose POC Glucose Lactate Dehydrogenase 316 H C-Reactive Protein 1.50 H Total Protein Triglycerides Ur Specific [place] Urine WBC (Auto) 0704/29/22 04/29/22 10:36 11:28 21:09 RBC Hgb Hct MCH [place] % (Auto) Lymph # (Auto) Seg Neutrophils % ABG pH 7.341 L ABG pO2 104.8 H ABG HCO3 27.1 H ABG O2 Saturation ABG Base Excess ABG Hemoglobin 12.8 L Oxyhemoglobin BUN Glucose POC Glucose 112 H Lactate Dehydrogenase C-Reactive Protein Total Protein Triglycerides Ur Specific [place] 1.046 H Urine WBC (Auto) 66.0 H 04/30/22 04/30/22 04/30/22 00:19 04:44 04:44 RBC Hgb 11.2 L Hct 34.5 L D MCH 27 L [place] % (Auto) 9.1 H Lymph # (Auto) 1.1 L Seg Neutrophils % 74.3 H ABG pH ABG pO2 ABG HCO3 ABG O2 Saturation ABG Base Excess ABG Hemoglobin Oxyhemoglobin BUN Glucose 138 H POC Glucose 130 H Lactate Dehydrogenase C-Reactive Protein Total Protein Triglycerides 214 H Ur Specific [place] Urine WBC (Auto) 04/30/22 04/30/22 05/01/22 10:52 11:16 04:52 RBC Hgb 11.1 L Hct 33.6 L MCH [place] % (Auto) Lymph # (Auto) Seg Neutrophils % ABG pH 7.345 L ABG pO2 111.2 H ABG HCO3 28.2 H ABG O2 Saturation ABG Base Excess ABG Hemoglobin 12.2 L Oxyhemoglobin BUN Glucose POC Glucose 135 H Lactate Dehydrogenase C-Reactive Protein Total Protein Triglycerides Ur Specific [place] Urine WBC (Auto) 05/01/22 05/01/22 05/01/22 04:52 07:25 11:28 RBC Hgb Hct MCH [place] % (Auto) Lymph # (Auto) Seg Neutrophils % ABG pH 7.456 H ABG pO2 60.9 L ABG HCO3 27.8 H ABG O2 Saturation ABG Base Excess 3.6 H ABG Hemoglobin 12.9 L Oxyhemoglobin 93.7 L BUN Glucose 132 H POC Glucose 140 H Lactate Dehydrogenase C-Reactive Protein Total Protein Triglycerides Ur Specific [place] Urine WBC (Auto) 05/01/22 05/02/22 05/02/22 13:20 03:36 03:36 RBC Hgb Hct MCH 27 L [place] % (Auto) Lymph # (Auto) Seg Neutrophils % ABG pH 7.482 H ABG pO2 61.0 L ABG HCO3 29.1 H ABG O2 Saturation ABG Base Excess 5.2 H ABG Hemoglobin 7.7 L Oxyhemoglobin BUN Glucose 119 H POC Glucose Lactate Dehydrogenase C-Reactive Protein Total Protein Triglycerides Ur Specific [place] Urine WBC (Auto) Chest x-ray: image reviewed Allied health notes reviewed: nursing
[2022-05-02] MEDS: SENNOSIDES/DOCUSATE SODIUM 8.6/50 MG TAB PO SCH (21:07)
[2022-05-02] MEDS: HYDROmorphone 0.5 MG/0.5 ML INJ IV PRN (21:15)
[2022-05-03] MEDS: IPRATROPIUM/ALBUTEROL SULFATE 3 ML AMPUL.NEB IH SCH ×3 (01:32→13:30)
[2022-05-03] MEDS: HYDROmorphone 0.5 MG/0.5 ML INJ IV PRN (04:44)
[2022-05-03] MEDS: HEPARIN 5,000 UNIT/1 ML VIAL SUB-Q SCH (05:36)
[2022-05-03] MEDS: BUDESONIDE 0.5 MG/2 ML NEBU IH SCH (07:29)
[2022-05-03] MEDS: ARFORMOTEROL 15 MCG/2 ML NEBU IH SCH (07:29)
--- NOTE | 2022-05-03 08:53 | Progress Note ---
Assessment and Plan Assessment and plan: History Interval history: This 31-year-old male with current nicotine abuse presented to the emergency department on 04/29 with complaints of shortness of breath and cough ongoing for the past 2 days and according to ED staff patient stated he had chest discomfort with cough and indicated that an at home COVID test was negative. While in the emergency department patient was found to be in acute respiratory distress with wheezing, tachypnea and tachycardia and was intubated. Work-up in the emergency department included lab work and CXR which was unremarkable, CTA chest showed no pulmonary embolism without acute findings and UDS was positive for marijuana and amphetamines. Patient was admitted to the hospitalist service with consults to [facility] for acute hypoxic respiratory failure. Hospital course to date: 04/29: Intubated/sedated. s/p reintubation, patient bit through ETT. Max on propofol and fentanyl, now with hypotension and tachycardia. Rapid COVID negative. Patient is afebrile with no leukocytosis. Wean sedatio for RASS goal 0 to -1, IVF bolus administered. Probably related to sedation but given unclear etiology for acute respiratory failure and now with hypotension, will also r/o infectious process. Orders placed for COVID and FLU PCR, UA, blood culture, and procal. Hold off on IV Abx for now, pending results. 2D echo pending. [facility] is also following 04/30: Patient was on CPAP trial this morning and ABG was acceptable. Patient was about to be extubated however he became severely agitated, tachypneic, tachycardic and had copious coughing. Patient was sedated with plans to possibly extubate tomorrow morning. COVID-19 PCR pending. 05/01: Patient tried on CPAP and was eventually able to be extubated, Seroquel 150 mg twice daily started by [facility]. Passed bedside swallow evaluation. COVID-19 PCR still pending. Patient noted to have fevers throughout the day and blood cultures ordered x1. We will continue to monitor. 05/02: Patient will be transferred to the floor. COVID-19 PCR still pending. No acute events overnight. Remains on nasal cannula. Dc seroquel 05/03: Assessment and plan: This is a 31-year-old male with current nicotine abuse admitted with acute hypoxic respiratory failure s/p intubation with a UDS positive for amphetamine Neuro: Polysubstance abuse (nicotine, amphetamines, THC) -UDS positive for amphetamine, THC and opiates -Reorientation as needed -Maintain sleep-wake cycle -As needed analgesia Cardiac: NAD -Blood pressure monitoring per protocol -Echocardiogram shows LVEF greater than 65%, mild concentric LVH Respiratory: Acute hypoxic respiratory failure -CCM consulted, appreciate recommendations -Intubated on 04/29 with 7.50 ETT at 22 the lips and extubated 05/01 -DuoNejose Brovaneveline, Solu-Medrol -Pulmonary hygiene -SPO2 monitoring GI: NAD -24 hours -447 mL -PPI -Regular diet -BR: Senokot : NAD -Monitor intake and output -Renally dose medications -Avoid nephrotoxic medications -Trend BMP ID: COVID-19 PUI -Presented with tachycardia, acute respiratory failure -Rapid COVID-19 negative, influenza A & B negative -Contact and droplet precautions -Procal 0.06 -f/u blood culture -04/29 BC x2 NGTD, 05/01 BG x2 pending -04/29 UC NGTD -COVID rapid (-) -COVID 19 PCR pending -Monitor WBC and temperature curve Endo: NAD -Avoid hypoglycemia Heme: NAD -Trend CBC -Transfuse hemoglobin less than 7 -SCDs to BLE while in bed #Advance care planning Disease education conducted, care plan discussed, diagnoses discussed, prognosis discussed, patient is full code, patient acknowledges understanding and agree with care plan, +30 minutes. Hospitalist Physical - Constitutional Vitals: Temp Pulse Resp BP Pulse Ox 98.2 F 99 H 18 130/80 93 05/03/22 05:09 05/03/22 07:29 05/03/22 07:29 05/03/22 05:09 05/03/22 05:09 General appearance: Present: no acute distress, other (Intubated and sedated) HEART Score - HEART Score Troponin: Troponin T < 0.010 ng/mL (0.00-0.029) 04/28/22 20:37 Results - Labs CBC & Chem 7: 05/02/22 03:36 05/02/22 03:36 Labs: Laboratory Last Values WBC 5.2 K/mm3 (4.5-11.0) 05/02/22 03:36 RBC 4.67 M/mm3 (3.65-5.03) 05/02/22 03:36 Hgb 12.6 gm/dl (11.8-15.2) 05/02/22 03:36 Hct 39.1 % (35.5-45.6) 05/02/22 03:36 MCV 84 fl (84-94) 05/02/22 03:36 MCH 27 pg (28-32) L 05/02/22 03:36 MCHC 32 % (32-34) 05/02/22 03:36 RDW 13.9 % (13.2-15.2) 05/02/22 03:36 Plt Count 213 K/mm3 (140-440) 05/02/22 03:36 Lymph % (Auto) 16.5 % (13.4-35.0) 04/30/22 04:44 [place] % (Auto) 9.1 % (0.0-7.3) H 04/30/22 04:44 Eos % (Auto) 0.0 % (0.0-4.3) 04/30/22 04:44 Baso % (Auto) 0.1 % (0.0-1.8) 04/30/22 04:44 Lymph # (Auto) 1.1 K/mm3 (1.2-5.4) L 04/30/22 04:44 [place] # (Auto) 0.6 K/mm3 (0.0-0.8) 04/30/22 04:44 Eos # (Auto) 0.0 K/mm3 (0.0-0.4) 04/30/22 04:44 Baso # (Auto) 0.0 K/mm3 (0.0-0.1) 04/30/22 04:44 Seg Neutrophils % 74.3 % (40.0-70.0) H 04/30/22 04:44 Seg Neutrophils # 4.8 K/mm3 (1.8-7.7) 04/30/22 04:44 D-Dimer 172.65 ng/mlDDU (0-234) 04/28/22 20:37 ABG pH 7.482 pH Units (7.350-7.450) H 05/01/22 13:20 ABG pCO2 39.7 mm Hg 05/01/22 13:20 ABG pO2 61.0 mm Hg (80.0-90.0) L 05/01/22 13:20 ABG HCO3 29.1 mmol/L (20.0-26.0) H 05/01/22 13:20 ABG O2 Saturation 97.2 % (95.0-99.0) 05/01/22 13:20 ABG O2 Content 10.4 (0.0-44) 05/01/22 13:20 ABG Base Excess 5.2 mmol/L (-2.0-3.0) H 05/01/22 13:20 ABG Hemoglobin 7.7 gm/dl (14.0-18.0) L 05/01/22 13:20 ABG Carboxyhemoglobin 1.2 % (0.0-5.0) 05/01/22 13:20 ABG Methemoglobin 0.5 % (0.0-1.5) 05/01/22 13:20 Oxyhemoglobin 95.5 % (95.0-99.0) 05/01/22 13:20 FiO2 35 % 05/01/22 13:20 Sodium 137 mmol/L (137-145) 05/02/22 03:36 Potassium 4.0 mmol/L (3.6-5.0) 05/02/22 03:36 Chloride 98.5 mmol/L (98-107) 05/02/22 03:36 Carbon Dioxide 29 mmol/L (22-30) 05/02/22 03:36 Anion Gap 14 mmol/L 05/02/22 03:36 BUN 11 mg/dL (9-20) 05/02/22 03:36 Creatinine 0.8 mg/dL (0.8-1.3) 05/02/22 03:36 Estimated GFR > 60 ml/min 05/02/22 03:36 BUN/Creatinine Ratio 14 % 05/02/22 03:36 Glucose 119 mg/dL (75-100) H 05/02/22 03:36 POC Glucose 140 mg/dL (70-105) H 05/01/22 11:28 Lactic Acid 1.50 mmol/L (0.7-2.0) 04/30/22 04:44 Calcium 8.9 mg/dL (8.4-10.2) 05/02/22 03:36 Phosphorus 2.90 mg/dL (2.5-4.5) 05/01/22 04:52 Magnesium 2.20 mg/dL (1.7-2.3) 05/01/22 04:52 Ferritin 189.3 ng/mL (30.0-300.0) 04/29/22 09:33 Total Bilirubin 0.60 mg/dL (0.1-1.2) 04/28/22 20:37 AST 25 units/L (5-40) 04/28/22 20:37 ALT 20 units/L (7-56) 04/28/22 20:37 Alkaline Phosphatase 73 units/L (35-129) 04/28/22 20:37 Lactate Dehydrogenase 316 units/L (91-180) H 04/29/22 09:33 Troponin T < 0.010 ng/mL (0.00-0.029) 04/28/22 20:37 C-Reactive Protein 1.50 mg/dL (0.00-1.30) H 04/29/22 09:33 NT-Pro-B Natriuret Pep 30.06 pg/mL (0-450) 04/28/22 20:37 Total Protein 8.8 g/dL (6.3-8.2) H 04/28/22 20:37 Albumin 4.5 g/dL (3.9-5) 04/28/22 20:37 Albumin/Globulin Ratio 1.0 % 04/28/22 20:37 Triglycerides 214 mg/dL (2-149) H 04/30/22 04:44 Procalcitonin 0.06 ng/mL (<0.15) 04/30/22 04:44 Urine Color [place] (Yellow) 04/29/22 10:36 Urine Turbidity Cloudy (Clear) 04/29/22 10:36 Urine pH 5.0 (5.0-7.0) 04/29/22 10:36 Ur Specific [place] 1.046 (1.003-1.030) H 04/29/22 10:36 Urine Protein 100 mg/dl mg/dL (Negative) 04/29/22 10:36 Urine Glucose (UA) Neg mg/dL (Negative) 04/29/22 10:36 Urine Ketones Neg mg/dL (Negative) 04/29/22 10:36 Urine Blood Lg (Negative) 04/29/22 10:36 Urine Nitrite Neg (Negative) 04/29/22 10:36 Urine Bilirubin Neg (Negative) 04/29/22 10:36 Urine Urobilinogen < 2.0 mg/dL (<2.0) 04/29/22 10:36 Ur Leukocyte Esterase Mod (Negative) 04/29/22 10:36 Urine WBC (Auto) 66.0 /HPF (0.0-6.0) H 04/29/22 10:36 Urine RBC (Auto) > 182.0 /HPF (0.0-6.0) 04/29/22 10:36 U Epithel Cells (Auto) 2.0 /HPF (0-13.0) 04/29/22 10:36 Urine Bacteria (Auto) 1+ /HPF (Negative) 04/29/22 10:36 Hyaline Casts 107 /LPF 04/29/22 10:36 Urine Opiates Screen Presumptive positive 04/28/22 22:25 Urine Methadone Screen Presumptive negative 04/28/22 22:25 Ur Barbiturates Screen Presumptive negative 04/28/22 22:25 Ur Phencyclidine Scrn Presumptive negative 04/28/22 22:25 Ur Amphetamines Screen Presumptive positive 04/28/22 22:25 U Benzodiazepines Scrn Presumptive negative 04/28/22 22:25 Urine Cocaine Screen Presumptive negative 04/28/22 22:25 U Marijuana (THC) Screen Presumptive positive 04/28/22 22:25 Drugs of Abuse Note Disclamer 04/28/22 22:25 SARS-CoV-2 (PCR) Negative (Negative) 04/29/22 08:35 Influenza A (RT-PCR) Negative (Negative) 04/30/22 09:35 Influenza B (RT-PCR) Negative (Negative) 04/30/22 09:35 Microbiology: Microbiology 05/01/22 18:42 Peripheral/Venous Blood Culture - Preliminary NO GROWTH AFTER 24 HOURS 05/01/22 18:42 Peripheral/Venous Blood Culture - Preliminary NO GROWTH AFTER 24 HOURS 04/29/22 13:21 Peripheral/Venous Blood Culture - Preliminary NO GROWTH AFTER 72 HOURS 04/29/22 13:21 Peripheral/Venous Blood Culture - Preliminary NO GROWTH AFTER 72 HOURS 04/29/22 10:36 Urine,Clean Catch Urine Culture - Final NO GROWTH AFTER 48 HOURS Muhammad/IV: Voiding Method Urinal Active Medications - Current Medications Current Medications: Generic Name Dose Route Start Last Admin Trade Name Freq PRN Reason Stop Dose Admin Acetaminophen 650 mg 05/02/22 09:00 05/02/22 08:42 Acetaminophen 325 Mg Tab PO 650 mg Q6H PRN Administration Pain MILD(1-3)/Fever >100.5/RUSHING Albuterol/Ipratropium 1 ampul 04/29/22 02:00 05/03/22 07:29 Ipratropium/Albuterol Sulfate 3 Ml Ampul.Neb IH 1 ampul Q6HRT ARTURO Administration Arformoterol Tartrate 15 mcg 04/29/22 12:15 05/03/22 07:29 Arformoterol 15 Mcg/2 Ml Nebu IH 15 mcg Q12HRT ARTURO Administration Budesonide 0.5 mg 04/29/22 20:00 05/03/22 07:29 Budesonide 0.5 Mg/2 Ml Nebu IH 0.5 mg Q12HRT ARTURO Administration Famotidine 20 mg 05/01/22 22:00 05/02/22 21:07 Famotidine 20 Mg Tab PO 20 mg BID ARTURO Administration Heparin Sodium (Porcine) 5,000 unit 04/29/22 06:00 05/03/22 05:36 Heparin 5,000 Unit/1 Ml Vial SUB-Q 5,000 unit Q8HR ARTURO Administration Hydromorphone HCl 0.5 mg 05/02/22 21:06 05/03/22 04:44 Hydromorphone 0.5 Mg/0.5 Ml Inj IV 0.5 mg Q4H PRN Administration Pain , Severe (7-10) Hydrophilic Ointment 1 applic 04/30/22 13:53 Lip Therapy Vaseline TP Q2HR PRN Dry Lips Methylprednisolone Sodium Succinate 40 mg 05/01/22 22:00 05/02/22 21:07 Methylprednisolone Sod Succinate 40 Mg/1 Ml Inj IV 40 mg Q12HR ARTURO Administration Multi-Ingred Cream/Lotion/Oil/Oint 1 applic 04/30/22 13:53 Mineral Oil/Petrolatum, White Ophth Oint 3.5 Gm OU Q4HR PRN Dry Eye(s) Ondansetron HCl 4 mg 04/29/22 00:26 Ondansetron 4 Mg/2 Ml Inj IV Q8H PRN Nausea And Vomiting Scopolamine 1 each 05/01/22 10:00 05/01/22 09:31 Scopolamine Transdermal Patch 72 Hr TD 1 each Q3D ARTURO Administration Senna/Docusate Sodium 1 tab 05/01/22 22:00 05/02/22 21:07 Sennosides/Docusate Sodium 8.6/50 Mg Tab PO 1 tab QHS ARTURO Administration Sodium Chloride 10 ml 04/29/22 10:00 05/02/22 21:07 Sodium Chloride 0.9% 10 Ml Flush Syringe IV 10 ml BID ARTURO Administration Sodium Chloride 10 ml 04/29/22 00:26 Sodium Chloride 0.9% 10 Ml Flush Syringe IV PRN PRN LINE FLUSH Nutrition/Malnutrition Assess - Dietary Evaluation Nutrition/Malnutrition Findings: Nutrition Notes Start: 04/29/22 14:24 Freq: Status: Active Protocol: Document 05/01/22 09:34 TANIA (Rec: 05/01/22 09:57 TANIA [id number]) Nutrition Notes Initial or Follow up Brief Note Current Diagnosis Respiratory Failure Other Pertinent Diagnosis Substance Abuse, COVID-19 pui. Current Diet TF-Vital AF 1.2 Bhupinder @ 55 ml/hr (since D 04/29). Labs/Tests 05/01: Glu 132. Pertinent Medications 05/01: Propofol @ 16.67 ml/hr (440 Kcal), others nutritionally unremarkable. Height 5 ft 9 in Weight 79.379 kg [place] Body Weight (kg) 72.72 BMI 25.8 Intake Prior to Admission Good Weight change and time frame Pt denies having loss body weight [employer]. No body weight change reported in 2 days. Weight Status Overweight Subjective/Other Information RD consult for routine F/U on TF tolerance/continuation. TF continues as prescribed, and well tolerated, according to RN notes. Pt remains on Mechanical Veintilation, O2 saturation @ 99%, according to Physical Assessment History notes. Percent of energy/protein needs met: Prescribed TF-Vital AF 1.2 Bhupinder @ 55 ml/hr provides for energy/protein needs (1,585 Kcal/99 g) during LOS, 76% Kcal; 100% AA. Including Propofol: 97% Kcal; 100% AA. #1 Nutrition Diagnosis Inadequate oral intake Diagnosis Progress(for reassessment Continues documentation) Is patient on ventilator? Yes Is Patient Ambulatory and/or Out of Bed No REE-([place]-confined to bed) 4953.697 Calculation Used for Recommendations [place] Additional Notes Protein: 1.2-2 g/Kg ABW; 95- 159 g/day. Fluids: 1 ml/Kcal, or as per MD. Nutrition Intervention Nutrition Support: Continue TF-Vital AF 1.2 Bhupinder @ 55 ml/hr. Flush: 175 ml water Q 4 hr, or as per MD. Kcal 1,585 Protein (gm) 99 Carbohydrates (gm) 146 Fat (gm) 71 Fluid (mL) 1,071 Fiber (gm) 7 % RDI: 76% Kcal; 100% AA. Goal #1 Provide at least 75% of energy /protein needs through Enteral Feeding during LOS. Follow-Up By: 05/08/22 Additional Comments Continue monitoring TF tolerance and BM.
[2022-05-03] MEDS: ACETAMINOPHEN 325 MG TAB PO PRN (10:12)
[2022-05-03] MEDS: methylPREDNISolone Sod Succinate 40 MG/1 ML INJ IV SCH (10:12)
[2022-05-03] MEDS: FAMOTIDINE 20 MG TAB PO SCH (10:12)
--- NOTE | 2022-05-03 11:06 | Discharge Summary ---
Providers - Providers Date of Admission: 04/29/22 00:26 Date of discharge: 05/03/22 Attending physician: ROSENDO DAVIS MD 04/29/22 00:26 Consult to Dietitian/Nutrition [CONS] Routine Physician Instructions: Reason For Exam: Reason for Consult: Diet education Consult to Physician [CONS] Routine Comment: Consulting Provider: PAYTON VILLAGOMEZ Physician Instructions: Reason For Exam: Acute Respiratory Distress- Intubated,Meth.Abuse 04/29/22 08:29 Consult to Dietitian/Nutrition [CONS] Routine Physician Instructions: Reason For Exam: Reason for Consult: Write/Manage Tube Feeding Primary care physician: SURESH KAY Hospitalization Reason for admission: shortness of breath Condition: Stable Hospital course: History Interval history: This 31-year-old male with current nicotine abuse presented to the emergency department on 04/29 with complaints of shortness of breath and cough ongoing for the past 2 days and according to ED staff patient stated he had chest discomfort with cough and indicated that an at home COVID test was negative. While in the emergency department patient was found to be in acute respiratory distress with wheezing, tachypnea and tachycardia and was intubated. Work-up in the emergency department included lab work and CXR which was unremarkable, CTA chest showed no pulmonary embolism without acute findings and UDS was positive for marijuana and amphetamines. Patient was admitted to the hospitalist service with consults to [facility] for acute hypoxic respiratory failure. Hospital course to date: 04/29: Intubated/sedated. s/p reintubation, patient bit through ETT. Max on propofol and fentanyl, now with hypotension and tachycardia. Rapid COVID negative. Patient is afebrile with no leukocytosis. Wean sedatio for RASS goal 0 to -1, IVF bolus administered. Probably related to sedation but given unclear e tiology for acute respiratory failure and now with hypotension, will also r/o infectious process. Orders placed for COVID and FLU PCR, UA, blood culture, and procal. Hold off on IV Abx for now, pending results. 2D echo pending. [facility] is also following 04/30: Patient was on CPAP trial this morning and ABG was acceptable. Patient was about to be extubated however he became severely agitated, tachypneic, tachycardic and had copious coughing. Patient was sedated with plans to possibly extubate tomorrow morning. COVID-19 PCR pending. 05/01: Patient tried on CPAP and was eventually able to be extubated, Seroquel 150 mg twice daily started by CCM. Passed bedside swallow evaluation. COVID-19 PCR still pending. Patient noted to have fevers throughout the day and blood cultures ordered x1. We will continue to monitor. 05/02: Patient will be transferred to the floor. COVID-19 PCR still pending. No acute events overnight. Remains on nasal cannula. Dc seroquel 05/03: no issues breathing. patient denies any acute symptomology. Patient currently saturating in 90s on room air. He will be discharged home today with instructions to follow-up with primary care physician in 3 to 5 days. He is also advised to abstain from recreational drug use. Will DC home with steroid taper and rescue inhaler Assessment and plan: This is a 31-year-old male with current nicotine abuse admitted with acute hypoxic respiratory failure s/p intubation with a UDS positive for amphetamine. Neuro: Polysubstance abuse (nicotine, amphetamines, THC) -UDS positive for amphetamine, THC and opiates -Reorientation as needed -Maintain sleep-wake cycle -As needed analgesia Cardiac: NAD -Blood pressure monitoring per protocol -Echocardiogram shows LVEF greater than 65%, mild concentric LVH Respiratory: Acute hypoxic respiratory failure -CCM consulted, appreciate recommendations -Intubated on 04/29 with 7.50 ETT at 22 the lips and extubated 05/01 -DuoNejose, Brovana, Solu-Medrol -Pulmonary hygiene -SPO2 monitoring GI: NAD -24 hours -447 mL -PPI -Regular diet -BR: Senokot : NAD -Monitor intake and output -Renally dose medications -Avoid nephrotoxic medications -Trend BMP ID: COVID-19 PUI -Presented with tachycardia, acute respiratory failure -Rapid COVID-19 negative, influenza A & B negative -Contact and droplet precautions -Procal 0.06 -f/u blood culture -04/29 BC x2 NGTD, 05/01 BG x2 pending -04/29 UC NGTD -COVID rapid (-) -COVID 19 PCR pending -Monitor WBC and temperature curve Endo: NAD -Avoid hypoglycemia Heme: NAD -Trend CBC -Transfuse hemoglobin less than 7 -SCDs to BLE while in bed Disposition: 30 STILL A PATIENT Final Discharge Diagnosis (Prints w/discharge instructions): amphetamine overdose, respiratory failure. Time spent for discharge: 35 Core Measure Documentation - Palliative Care Palliative Care/ Comfort Measures: Not Applicable - Core Measures Any of the following diagnoses?: none Exam - Physical Exam Narrative exam: Physical Exam: VITAL SIGNS: Reviewed. GENERAL: The patient appears normally developed, Vital signs as documented. HEAD: No signs of head trauma. EYES: Pupils are equal. Extraocular motions intact. EARS: Hearing grossly intact. MOUTH: Oropharynx is normal. NECK: No adenopathy, no JVD. CHEST: Chest with clear breath sounds bilaterally. No wheezes, rales, or rhonchi. CARDIAC: Regular rate and rhythm. S1 and S2, without murmurs, gallops, or rubs. VASCULAR: No Edema. Peripheral pulses normal and equal in all extremities. ABDOMEN: Soft, non tender and non distended. No rebound or guarding, and no masses palpated. Bowel Sounds normal. MUSCULOSKELETAL: Good range of motion of all major joints. Extremities without clubbing, cyanosis or edema. NEUROLOGIC EXAM: Alert and oriented x 4. no focal sensory or strength deficits. PSYCHIATRIC: Mood normal. SKIN: detail exam as documented in skin assessment - Constitutional Vitals: Temp Pulse Resp BP Pulse Ox 98.2 F 99 H 18 130/80 93 05/03/22 05:09 05/03/22 07:29 05/03/22 07:29 05/03/22 05:09 05/03/22 05:09 Plan Follow up with: SURESH KAY MD [Primary Care Provider] - 3-5 Days Prescriptions: Prednisone [predniSONE 5 mg (6-Day Pack, 21 Tabs)] 5 mg PO .TAPER #1 Albuterol Mdi (or & Nicu Only) [ProAir HFA Inhaler] 2 puff IH QID PRN #8.5 gram PRN Reason: Shortness Of Breath
[2022-05-03 12:51] VITALS: BP 128/93
--- NOTE | 2022-05-03 13:13 | Progress Note ---
Assessment and Plan 31-year-old -[place] male with no significant past medical history seen in the emergency room with complaints of shortness of breath and cough which has been ongoing for the past 2 days. Most of the history was gotten from the ER staff as patient is already intubated and sedated. No family member was available. According to patient, he denied any fever or chills, he has had some chest discomfort with his cough. He also indicated that indeed a COVID test at home which was negative. While in the emergency room, patient was found to be in acute respiratory distress. He was found to be wheezing, tachypneic and tachycardic. He was subsequently intubated in the emergency room. Work-up in the emergency room, labs were unremarkable. Chest x-ray was unremarkable. CT angiogram of the chest was negative for pulmonary embolism. No acute findings within the chest. UDS was positive for marijuana and amphetamine. He was subsequently intubated in the emergency room secondary to his acute respiratory distress. Patient subseqently Extubated. Patient transfered to Medical floor. Patients COVID PCR is reported negative. Patient has history of smoking 1 pack x 3 years. Smokes Marijuana. Counseled to stop those habbits. Denies alcohol abuse. Not working now. Used to work in [employer]. and has 4 children. Patient alert, awake. Resting on room air. O2 saturation 96%. Denies chest pain, shortness of breath or cough. Patient afebrile. No leukocytosis. Blood pressure 128/93, Pulse 90, Respirations 24. Angio CT of chest done 04/28/[address] evidence for pulmonary embolism. Borderline to minimally enlarged bilateral axillary lymph nodes of uncertain if any clinical significance. No acute findings within the chest. Chest xray done 05/01/22 reported Heart size is within normal limits. Mediastinal contour demonstrates no significant abnormality. Lungs are clear for degree of inspiration and technique utilized. Patient is on I/V solumedrol, Brovanna/Budesonide aerosol treatments, Albu terol/atrovent aerosol treatments prn for shortness of breath, Famotidine and S/C heparin. - Patient Problems (1) Amphetamine abuse Status: Acute Plan to address problem: Counseled stop using amphitamines. (2) Cough Status: Acute Plan to address problem: Counseled to stop smoking. PFTs as out patient. (3) Respiratory distress, acute Status: Acute Plan to address problem: Intubated and extubated. Presently on room air. O2 saturation 96%. Brovanna/Budesonide aerosol treatments q 12 hours. Albuterol inhaler PRN for shortness of breath. Counseled to stop smoking. PFTs as out patient. Subjective Date of service: 05/03/22 Principal diagnosis: AHRF on MVS; AE-Asthma; Tobacco abuse; Oropharyngeal dysphagia; Hypotension Interval history: 31-year-old -[place] male with no significant past medical history seen in the emergency room with complaints of shortness of breath and cough which has been ongoing for the past 2 days. Most of the history was gotten from the ER staff as patient is already intubated and sedated. No family member was available. According to patient, he denied any fever or chills, he has had some chest discomfort with his cough. He also indicated that indeed a COVID test at home which was negative. While in the emergency room, patient was found to be in acute respiratory distress. He was found to be wheezing, tachypneic and tachycardic. He was subsequently intubated in the emergency room. Work-up in the emergency room, labs were unremarkable. Chest x-ray was unremarkable. CT angiogram of the chest was negative for pulmonary embolism. No acute findings within the chest. UDS was positive for marijuana and amphetamine. He was subsequently intubated in the emergency room secondary to his acute respiratory distress. Patient subseqently Extubated. Patient transfered to Medical floor. Patients COVID PCR is reported negative. Patient has history of smoking 1 pack x 3 years. Smokes Marijuana. Counseled to stop those habbits. Denies alcohol abuse. Not working now. Used to work in [employer]. and has 4 children. Patient alert, awake. Resting on room air. O2 saturation 96%. Denies chest pain, shortness of breath or cough. Patient afebrile. No leukocytosis. Blood pressure 128/93, Pulse 90, Respirations 24. Angio CT of chest done 04/28/[address] evidence for pulmonary embolism. Borderline to minimally enlarged bilateral axillary lymph nodes of uncertain if any clinical significance. No acute findings within the chest. Chest xray done 05/01/22 reported Heart size is within normal limits. Mediastinal contour demonstrates no significant abnormality. Lungs are clear for degree of inspiration and technique utilized. Patient is on I/V solumedrol, Brovanna/Budesonide aerosol treatments, Albuter ol/atrovent aerosol treatments prn for shortness of breath, Famotidine and S/C heparin. Objective Vital Signs - 12hr 05/03/22 05/03/22 05/03/22 01:32 05:09 07:29 Temperature 98.2 F Pulse Rate Pulse Rate [ 110 H 99 H Bilateral Throughout] Pulse Rate [ 98 H None] Respiratory 18 Rate Respiratory 22 18 Rate [Bilateral Throughout] Blood Pressure 130/80 O2 Sat by Pulse 93 Oximetry 05/03/22 11:44 Temperature 98.9 F Pulse Rate 90 Pulse Rate [ Bilateral Throughout] Pulse Rate [ None] Respiratory 24 Rate Respiratory Rate [Bilateral Throughout] Blood Pressure 128/93 O2 Sat by Pulse 96 Oximetry Constitutional: no acute distress, alert Eyes: non-icteric ENT: oropharynx moist Neck: supple, no lymphadenopathy, no JVD Effort: normal Ascultation: Bilateral: rhonchi (scant) Percussion: Bilateral: not dull Cardiovascular: regular rate and rhythm, other (S1.S2) Gastrointestinal: normoactive bowel sounds, soft, non-tender, non-distended Integumentary: normal Extremities: no cyanosis, no edema, pulses normal, no ischemia or petechiae Neurologic: normal mental status, non-focal exam, pupils equal and round, CN II- XII normal, motor strength normal and Psychiatric: mood appropriate, affect normal CBC and BMP: 05/02/22 03:36 05/02/22 03:36 ABG, PT/INR, D-dimer: ABG ABG pH 7.482 pH Units (7.350-7.450) H 05/01/22 13:20 ABG pCO2 39.7 mm Hg 05/01/22 13:20 ABG pO2 61.0 mm Hg (80.0-90.0) L 05/01/22 13:20 ABG O2 Saturation 97.2 % (95.0-99.0) 05/01/22 13:20 PT/INR, D-dimer D-Dimer 172.65 ng/mlDDU (0-234) 04/28/22 20:37 Abnormal lab findings: Abnormal Labs 04/28/22 04/28/22 04/28/22 20:23 20:37 20:37 RBC 5.18 H Hgb Hct MCH 27 L Robertson % (Auto) Lymph # (Auto) Seg Neutrophils % 73.7 H ABG pH 7.343 L ABG pO2 110.7 H ABG HCO3 ABG O2 Saturation ABG Base Excess -2.5 L ABG Hemoglobin 13.4 L Oxyhemoglobin BUN 5 L Glucose 109 H POC Glucose Lactate Dehydrogenase C-Reactive Protein Total Protein 8.8 H Triglycerides Ur Specific [place] Urine WBC (Auto) 04/29/22 04/29/22 04/29/22 00:30 08:30 09:33 RBC Hgb Hct MCH Robertson % (Auto) Lymph # (Auto) Seg Neutrophils % ABG pH 7.213 L 7.229 L ABG pO2 75.5 L 435.3 H ABG HCO3 28.1 H ABG O2 Saturation 94.1 L 99.6 H ABG Base Excess -4.0 L ABG Hemoglobin 12.9 L Oxyhemoglobin 92.5 L BUN Glucose POC Glucose Lactate Dehydrogenase 316 H C-Reactive Protein 1.50 H Total Protein Triglycerides Ur Specific [place] Urine WBC (Auto) 04/29/22 04/29/22 04/29/22 10:36 11:28 21:09 RBC Hgb Hct MCH Robertson % (Auto) Lymph # (Auto) Seg Neutrophils % ABG pH 7.341 L ABG pO2 104.8 H ABG HCO3 27.1 H ABG O2 Saturation ABG Base Excess ABG Hemoglobin 12.8 L Oxyhemoglobin BUN Glucose POC Glucose 112 H Lactate Dehydrogenase C-Reactive Protein Total Protein Triglycerides Ur Specific [place] 1.046 H Urine WBC (Auto) 66.0 H 04/30/22 04/30/22 04/30/22 00:19 04:44 04:44 RBC Hgb 11.2 L Hct 34.5 L D MCH 27 L Robertson % (Auto) 9.1 H Lymph # (Auto) 1.1 L Seg Neutrophils % 74.3 H ABG pH ABG pO2 ABG HCO3 ABG O2 Saturation ABG Base Excess ABG Hemoglobin Oxyhemoglobin BUN Glucose 138 H POC Glucose 130 H Lactate Dehydrogenase C-Reactive Protein Total Protein Triglycerides 214 H Ur Specific [place] Urine WBC (Auto) 04/30/22 04/30/22 05/01/22 10:52 11:16 04:52 RBC Hgb 11.1 L Hct 33.6 L MCH Robertson % (Auto) Lymph # (Auto) Seg Neutrophils % ABG pH 7.345 L ABG pO2 111.2 H ABG HCO3 28.2 H ABG O2 Saturation ABG Base Excess ABG Hemoglobin 12.2 L Oxyhemoglobin BUN Glucose POC Glucose 135 H Lactate Dehydrogenase C-Reactive Protein Total Protein Triglycerides Ur Specific [place] Urine WBC (Auto) 05/01/22 05/01/22 05/01/22 04:52 07:25 11:28 RBC Hgb Hct MCH Robertson % (Auto) Lymph # (Auto) Seg Neutrophils % ABG pH 7.456 H ABG pO2 60.9 L ABG HCO3 27.8 H ABG O2 Saturation ABG Base Excess 3.6 H ABG Hemoglobin 12.9 L Oxyhemoglobin 93.7 L BUN Glucose 132 H POC Glucose 140 H Lactate Dehydrogenase C-Reactive Protein Total Protein Triglycerides Ur Specific [place] Urine WBC (Auto) 05/01/22 05/02/22 05/02/22 13:20 03:36 03:36 RBC Hgb Hct MCH 27 L Robertson % (Auto) Lymph # (Auto) Seg Neutrophils % ABG pH 7.482 H ABG pO2 61.0 L ABG HCO3 29.1 H ABG O2 Saturation ABG Base Excess 5.2 H ABG Hemoglobin 7.7 L Oxyhemoglobin BUN Glucose 119 H POC Glucose Lactate Dehydrogenase C-Reactive Protein Total Protein Triglycerides Ur Specific [place] Urine WBC (Auto) Chest x-ray: report reviewed, image reviewed CT scan - chest: report reviewed, image reviewed Additional Studies: HEST 1 VIEW 05/01/22 INDICATION / CLINICAL INFORMATION: follow up respiratory failure. COMPARISON: Chest x-ray 04/30/2022 FINDINGS: SUPPORT DEVICES: Stable, satisfactory device positioning. HEART / MEDIASTINUM: Heart size is within normal limits. Mediastinal contour demonstrates no significant abnormality. LUNGS / PLEURA: Lungs are clear for degree of inspiration and technique utilized. BONES: No significant osseous abnormality. ADDITIONAL FINDINGS: No significant additional findings. IMPRESSION: 1. No active cardiopulmonary disease. CTA CHEST WITH CONTRAST 04/28/22 INDICATION / CLINICAL INFORMATION: severe sob, chest pain. TECHNIQUE: Axial CT images were obtained through the chest after injection of 100 cc Omnipaque 350 Mario IV contrast. 3 plane MIP and/or 3D reconstructions were produced. All CT scans at this location are performed using CT dose reduction for ALARA by means of automated exposure control. COMPARISON: None available. FINDINGS: VASCULAR FINDINGS: PULMONARY ARTERY: Pulmonary artery is normal in size. No filling defects are present compatible with pulmonary artery embolus.. THORACIC AORTA: No significant abnormality. CORONARY ARTERY CALCIFICATION: Absent -- None. NONVASCULAR FINDINGS: LOWER NECK: Soft tissues and musculature of the lower neck demonstrate no significant abnormality. The thyroid demonstrates no significant abnormality. HEART: No significant abnormality. MEDIASTINUM / JOANIE: No significant abnormality. ESOPHAGUS: Esophagogastric tube present. The esophagus demonstrates no significant abnormality. LYMPH NODES: Enlarged bilateral axillary lymph nodes. Left axillary lymph nodes measure up to 12 mm short axis. Right measure up to 9-10 mm short axis LUNGS: No acute air space or interstitial disease. PLEURA: No pleural effusion. No pneumothorax. THORACIC SOFT TISSUES: No significant abnormality of the chest wall or upper thoracic musculature. BONES: No significant skeletal abnormalities. ADDITIONAL CHEST FINDINGS: None. UPPER ABDOMEN: Mild hepatic steatosis not excluded. IMPRESSION: 1. No CT evidence for pulmonary embolism. 2. Borderline to minimally enlarged bilateral axillary lymph nodes of uncertain if any clinical significance. 3. No acute findings within the chest. Allied health notes reviewed: nursing
== END 2022-05-03 14:27 | disposition home or self-care (01) | DRG 917 ==
LOC: ED 17:18 → CC1 04-29 00:26 → 3A 05-02 17:54
PROVIDERS: ADMIT Internal Medicine Geriatric Medicine; ATTEND Internal Medicine
PROC: 5A1945Z Respiratory Ventilation, 24-96 Consecutive Hours (ICD-10-PCS; principal; 2022-04-28)
PROC: 0BH17EZ Insertion of Endotracheal Airway into Trachea, Via Natural or Artificial Opening (ICD-10-PCS; 2022-04-28)
PROC: 4A033R1 Measurement of Arterial Saturation, Peripheral, Percutaneous Approach (ICD-10-PCS; 2022-04-29)
DX: T43.621A Poisoning by amphetamines, accidental (unintentional), initial encounter (principal); J96.01 Acute respiratory failure with hypoxia; J96.02 Acute respiratory failure with hypercapnia; F15.10 Other stimulant abuse, uncomplicated; F19.10 Other psychoactive substance abuse, uncomplicated; I95.9 Hypotension, unspecified; R13.12 Dysphagia, oropharyngeal phase; Y92.89 Other specified places as the place of occurrence of the external cause; Z20.822 Contact with and (suspected) exposure to COVID-19
CPT/HCPCS: 36415; 36600; 71045; 71275; 80048; 80053; 80307; 81001; 82140; 82728; 82803; 82962; 83615; 83735; 83880; 84100; 84145; 84478; 84484; 85025; 85027; 85379; 86140; 87040; 87070; 87086; 87205; 93005; 93306; 94002; 94003; 94640; 94644; G0378; J3490; 87502; C8929; J1170; J1644; J2060; J2250; J2270; J2405; J2704; J2920; J2930; J3010; J7030; J7040; Q9967; U0003